=== PATIENT | female | born 1940 | race Hispanic/Latino ===

== ENCOUNTER 2017-01-07 15:44 | Emergency (ER) | payer MEDICARE ==
[2017-01-07 15:45] VITALS: BMI 24.9
[2017-01-07] MEDS ORDERED: Sodium Chloride 0.9% 500 ML IV STA (16:18)
--- NOTE | 2017-01-07 16:22 | ED PDOC ---
HPI: General Adult Time Seen by Provider: 01/07/17 15:55 Chief Complaint (Nursing): Abdominal Pain Chief Complaint (Provider): Abdominal Pain History Per: Patient, Family (Daughter) History/Exam Limitations: no limitations Onset/Duration Of Symptoms: Days (x3 days) Current Symptoms Are (Timing): Still Present Additional Complaint(s): 76 y/o female with a past medical history of hypertension, asthma, and gastritis who presents to the emergency department with a complaint of a frontal headache (not the worse of life), nausea, abdominal pain, generalized weakness, dizziness (room-spinning), diarrhea, congestion, and a cough with green sputum x3 days. As per history from daughter, patient took Delsym earlier today. Denies vomiting, bloody stools, or chest pain. Bodyaches present. PMD: Dr. Hal Bustillo MD Past Medical History Reviewed: Historical Data, Nursing Documentation, Vital Signs Vital Signs: Last Vital Signs Temp Pulse 82 01/07/17 18:00 Resp 14 01/07/17 18:00 BP 132/75 01/07/17 18:00 Pulse Ox 98 01/07/17 18:00 - Medical History PMH: Asthma, Gastritis, HTN Denies: Chronic Kidney Disease - Surgical History Surgical History: Cholecystectomy - Family History Family History: States: Unknown Family Hx - Living Arrangements Living Arrangements: With Family - Social History Current smoker - smoking cessation education provided: No Alcohol: None Drugs: Denies - Home Medications Home Medications: Ambulatory Orders Medication Instructions Recorded Albuterol Sulfate [Proair Hfa] 1 puff IH Q4H PRN #0 inh 03/04/16 Carvedilol [Coreg] 12.5 mg PO DAILY #0 tab 03/04/16 Esomeprazole Magnesium [Nexium] 40 mg PO DAILY #0 capsule. 03/04/16 Magnesium Oxide 400 mg PO BID #60 tablet 03/04/16 Valsartan [Diovan] 160 mg PO DAILY #0 tablet 03/04/16 DiphenhydrAMINE [Benadryl] 25 mg PO Q8H PRN 5 Days 07/10/16 predniSONE [predniSONE Tab] 20 mg PO BID 5 Days 07/10/16 - Allergies Allergies/Adverse Reactions: Allergies Allergy/AdvReac Type Severity Reaction Status Date / Time No Known Allergies Allergy Verified 03/01/16 23:04 Review of Systems ROS Statement: Except As Marked, All Systems Reviewed And Found Negative ENT: Positive for: Nose Congestion Cardiovascular: Negative for: Chest Pain Respiratory: Positive for: Cough, Sputum (green in color) Gastrointestinal: Positive for: Nausea, Abdominal Pain, Diarrhea. Negative for : Vomiting, Hematochezia Neurological: Positive for: Weakness (Generalized), Headache (Frontal; not the worst headache experienced), Dizziness (Room-spinning) Physical Exam - Reviewed Nursing Documentation Reviewed: Yes Vital Signs Reviewed: Yes - Physical Exam Appears: Positive for: Non-toxic, No Acute Distress Head Exam: Positive for: ATRAUMATIC, NORMAL INSPECTION, NORMOCEPHALIC Skin: Positive for: Normal Color, Warm, Dry Eye Exam: Positive for: Normal appearance, EOMI, PERRL ENT: Positive for: Nasal Congestion. Negative for: Pharyngeal Erythema, Tonsillar Exudate Neck: Positive for: Normal, Supple Cardiovascular/Chest: Positive for: Regular Rate, Rhythm. Negative for: Murmur Respiratory: Positive for: Normal Breath Sounds. Negative for: Accessory Muscle Use, Wheezing, Respiratory Distress Gastrointestinal/Abdominal: Positive for: Normal Exam, Soft. Negative for: Tenderness Back: Positive for: Normal Inspection. Negative for: L CVA Tenderness, R CVA Tenderness Extremity: Positive for: Normal ROM. 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 Negative for: Motor/Sensory Deficits, Aphasia, Facial Droop - Laboratory Results Result Diagrams: 01/07/17 16:34 01/07/17 16:34 Interpretation Of Abn Labs: no acute Urine dip results: Positive for: Leukocyte Esterase - ECG ECG: Positive for: Interpreted By Me, Viewed By Ar ECG Rhythm: Positive for: Normal QRS, Normal ST Segment, Sinus Rhythm - Radiology X-Ray: Read By Radiologist X-Ray Interpretation: No Acute Disease - Progress ED Course And Treament: 1850: Stable. Dr. Bentley to fu on ct head. Possible uti. Medical Decision Making Medical Decision Making: Time:15:55 Initial impression: Evaluating for multiple medical complaints Initial plan: --Head w.o contrast CT --Electrocardiogram Stat --COMP Metabolic Panel --Troponin I Stat --Urine Dip --EKG-ED --CBC w. differential --Chest portable (RAD) --Famotidine 20 mg IVP --Antivert 25 mg PO --Sodium Chloride 500 ml IV 250 mls/hr --Ondansetron 4 mg IV --Revaluation Time: 16:47 --Chest X-ray FINDINGS: LUNGS: No active pulmonary disease. PLEURA: No significant pleural effusion identified, no pneumothorax apparent. CARDIOVASCULAR: Normal. OSSEOUS STRUCTURES: No significant abnormalities. VISUALIZED UPPER ABDOMEN: Normal. OTHER FINDINGS: None. IMPRESSION: No active disease. Scribe Attestation: Documented by Romina Wray, acting as a scribe for Osito Esquivel MD. Provider Scribe Attestation: All medical record entries made by the Scribe were at my direction and personally dictated by me. I have reviewed the chart and agree that the record accurately reflects my personal performance of the history, physical exam, medical decision making, and the department course for this patient. I have also personally directed, reviewed, and agree with the discharge instructions and disposition. Disposition - Clinical Impression Clinical Impression: URI (upper respiratory infection), UTI (urinary tract infection), Dizziness - Patient ED Disposition Is Patient to be Admitted: Transfer of Care - Disposition Disposition: Transfer of Care Disposition Time: 18:51 Condition: STABLE Patient Signed Over To: Tan Bentley
--- NOTE | 2017-01-07 16:48 | RAD ---
HISTORY: weakness COMPARISON: No prior. FINDINGS: LUNGS: No active pulmonary disease. PLEURA: No significant pleural effusion identified, no pneumothorax apparent. CARDIOVASCULAR: Normal. OSSEOUS STRUCTURES: No significant abnormalities. VISUALIZED UPPER ABDOMEN: Normal. OTHER FINDINGS: None. IMPRESSION: No active disease.
[2017-01-07 16:56] LABS: BASO % 0.6 % (0.0-2.0); EOS # 0.1 K/uL (0.0-0.7); EOS % 1.8 % (0.0-4.0); HEMATOCRIT 33.1 % (34.0-47.0); LYMPH # 1.3 K/uL (1.0-4.3); LYMPH % 18.1 % (20.0-40.0); MEAN CELL VOLUME 91.3 fl (81.0-99.0); MEAN CORPUSCULAR HEMOGLOBIN 30.5 pg (27.0-31.0); MEAN CORPUSCULAR HGB CONC 33.4 g/dL (33.0-37.0); MEAN PLATELET VOLUME 12.3 fl (7.2-11.7); MONO # 0.8 K/uL (0.0-0.8); MONO % 10.5 % (0.0-10.0); NEUT # 4.9 K/uL (1.8-7.0); NRBC % 0.2 % (0.0-0.0); RED CELL DISTRIBUTION WIDTH 13.9 % (11.5-14.5); WHITE BLOOD COUNT 7.1 K/uL (4.8-10.8)
[2017-01-07 17:00] LABS: ALB/GLOB RATIO 1.3 (1.0-2.1); ALKALINE PHOSPHATASE 49 U/L (38-126); ALT/SGPT 26 U/L (9-52); AST/SGOT 26 U/L (14-36); BILIRUBIN,TOTAL 0.6 mg/dl (0.2-1.3); BLOOD UREA NITROGEN 20 mg/dl (7-17); CALCIUM 8.5 mg/dL (8.4-10.2); CARBON DIOXIDE 25 mmol/L (22-30); CHLORIDE 103 mmol/L (98-107); GFR AFRICAN-AMERICAN > 60; GLUCOSE,RANDOM 103 mg/dL (65-105); POTASSIUM 3.7 MMOL/L (3.6-5.0); SODIUM 138 mmol/l (132-148); TOTAL PROTEIN 7.4 G/DL (6.3-8.2)
[2017-01-07 18:39] VITALS: BP 132/75; PULSE 82; RESP 14; O2SAT 98
[2017-01-07 18:51] VITALS: TEMP 98
[2017-01-07 19:01] LABS: RBC URINE 6 /hpf (0-3); URINE BACTERIA OCC (<OCC); URINE BILIRUBIN NEGATIVE (NEGATIVE); URINE COLOR YELLOW (YELLOW); URINE GLUCOSE (UA) NEG (Normal); URINE KETONE NEGATIVE (NEGATIVE); URINE LEUKOCYTE ESTERASE LARGE Leu/uL (Negative); URINE PROTEIN 30 mg/dL (NEGATIVE); URINE UROBILINOGEN 0.2-1.0 mg/dL (0.2-1.0); WBC URINE 30 /hpf (0-5)
[2017-01-07 19:02] LABS: URINE BLOOD SMALL (NEGATIVE)
--- NOTE | 2017-01-07 19:30 | ED PDOC ---
- Laboratory Results Result Diagrams: 01/07/17 16:34 01/07/17 16:34 - ECG O2 Sat by Pulse Oximetry: 98 (RA) Pulse Ox Interpretation: Normal Medical Decision Making Medical Decision Making: Time: 19:00 --Patient is pending CT, reevaluation, and disposition. Time: 19:56 --Head CT FINDINGS: BRAIN: Physiologic basal ganglia calcification. Diffuse, age-related cortical atrophy and ventriculomegaly. No significant acute abnormality identified. No acute hemorrhage seen within the brain. No acute extra-axial fluid collections visualized. No evidence of significant mass effect within the brain. VENTRICLES: See above. BONES/JOINTS: No acute fractures or other acute bony abnormality noted. SOFT TISSUES: No acute abnormality of the visualized soft tissues is seen. VASCULATURE: Atherosclerotic calcification. SINUSES: Visualized paranasal sinuses appear clear. MASTOID AIR CELLS: Mastoid air cells appear clear. IMPRESSION: - No acute findings seen within the brain. - See above for remaining findings. Time: 20:55 --Rocephin 1gm Upon provider reevaluation patient is feeling better, is medically stable, and requires no further treatment in the ED at this time. Patient will be discharged home with Rx for Cipro 500 mg and Antivert 25 mg. Counseling was provided and all questions were answered regarding diagnosis and need for follow up with referred clinic. There is agreement to discharge plan. Return if symptoms persist or worsen. Clinical Impression: Upper respiratory infection, urinary tract infection, and dizziness Scribe Attestation: Documented by Romina Wray, acting as a scribe for Tan Bentley MD. Provider Scribe Attestation: All medical record entries made by the Scribe were at my direction and personally dictated by me. I have reviewed the chart and agree that the record accurately reflects my personal performance of the history, physical exam, medical decision making, and the department course for this patient. I have also personally directed, reviewed, and agree with the discharge instructions and disposition. Disposition Counseled Patient/Family Regarding: Studies Performed, Diagnosis, Need For Followup, Rx Given - Clinical Impression Clinical Impression: URI (upper respiratory infection), UTI (urinary tract infection), Dizziness - POA Present On Arrival: None - Disposition Referrals: [facility] [Outside] Disposition: Routine/Home Disposition Time: 20:55 Condition: STABLE Prescriptions: Ciprofloxacin [Cipro] 500 mg PO Q12 #14 tab Meclizine [Antivert] 25 mg PO Q6 PRN #12 tab PRN Reason: Dizziness Instructions: Urinary Tract Infection in Women (ED), Vertigo (ED) Print Language: CYPRIOT
--- NOTE | 2017-01-07 19:56 | CT ---
EXAM: CT Head Without Intravenous Contrast CLINICAL HISTORY: 76 years old, female; Pain; Headache; Other: Frontal sanchez's weak dizzy; Patient HX: Cholecystectomy. HTN asthma a-fib TECHNIQUE: Axial computed tomography images of the head/brain without intravenous contrast. This CT exam was performed using one or more of the following dose reduction techniques: automated exposure control, adjustment of the mA and/or kV according to patient size, and/or use of iterative reconstruction technique. Coronal and sagittal reformatted images were created and reviewed. EXAM DATE/TIME: 01/07/2017 4:17 PM COMPARISON: No relevant prior studies available. FINDINGS: BRAIN: Physiologic basal ganglia calcification. Diffuse, age-related cortical atrophy and ventriculomegaly. No significant acute abnormality identified. No acute hemorrhage seen within the brain. No acute extra-axial fluid collections visualized. No evidence of significant mass effect within the brain. VENTRICLES: See above. BONES/JOINTS: No acute fractures or other acute bony abnormality noted. SOFT TISSUES: No acute abnormality of the visualized soft tissues is seen. VASCULATURE: Atherosclerotic calcification. SINUSES: Visualized paranasal sinuses appear clear. MASTOID AIR CELLS: Mastoid air cells appear clear. IMPRESSION: - No acute findings seen within the brain. - See above for remaining findings.
[2017-01-07] MEDS ORDERED: cefTRIAXone (Rocephin) 1 gm Inj ONE (21:01)
--- NOTE | 2017-01-08 14:50 | CARD ---
APPROVED REPORT EKG Measurement Heart [id number] AL [id number] <Conclusion> Sinus bradycardia with premature atrial complexes Otherwise normal ECG
== END 2017-01-07 22:22 | disposition home or self-care (01) ==
LOC: H.ER 15:44
DX: N39.0 Urinary tract infection, site not specified (principal); J06.9 Acute upper respiratory infection, unspecified; R42 Dizziness and giddiness; I10 Essential (primary) hypertension; R11.0 Nausea; R51 Headache
CPT/HCPCS: 70450; 71010; 80053; 81003; 84484; 85025; 87086; 93005; 96365; 96375; 99285; J0696; J2405; J7040

== ENCOUNTER 2017-05-21 02:40 | Emergency (ER) | payer MEDICARE ==
[2017-05-21 02:41] VITALS: BMI 24.9
[2017-05-21 03:05] VITALS: BP 164/80; RESP 16; TEMP 98.1; O2SAT 100
--- NOTE | 2017-05-21 03:24 | ED PDOC ---
HPI: General Adult Time Seen by Provider: 05/21/17 02:50 Chief Complaint (Nursing): Chest Pain Chief Complaint (Provider): Back pain, chest pain History Per: Patient History/Exam Limitations: clinical condition (dementia) Onset/Duration Of Symptoms: Unknown Current Symptoms Are (Timing): Still Present Additional Complaint(s): 76yo female, past medical history of dementia, hypertension, gastritis, presents to the ED with complaints of chest pain, lower back pain radiating to bilateral legs. Of note, patient reports she has a history of arthritis but does not take medications. Patient states she is unsure of exact onset of her pain but reports noticing it today; denies taking any medications for her symptoms. She states the chest pain is mostly mid-sternal and she denies any numbness or tingling in her lower extremities. Patient offers no other medical complaints. Past Medical History Reviewed: Historical Data, Nursing Documentation, Vital Signs Vital Signs: Last Vital Signs Temp 98.1 F 05/21/17 03:01 Pulse 98 H 05/21/17 03:45 Resp 16 05/21/17 03:01 BP 164/80 H 05/21/17 03:01 Pulse Ox 100 05/21/17 03:34 - Medical History PMH: Asthma, Atrial Fibrillation, Dementia, Gastritis, Gall Bladder Disease, HTN Denies: Chronic Kidney Disease - Surgical History Surgical History: Cholecystectomy - Family History Family History: States: No Known Family Hx, Unknown Family Hx - Home Medications Home Medications: Ambulatory Orders Medication Instructions Recorded Albuterol Sulfate [Proair Hfa] 1 puff IH Q4H PRN #0 inh 03/04/16 Carvedilol [Coreg] 12.5 mg PO DAILY #0 tab 03/04/16 Esomeprazole Magnesium [Nexium] 40 mg PO DAILY #0 capsule. 03/04/16 Magnesium Oxide 400 mg PO BID #60 tablet 03/04/16 Valsartan [Diovan] 160 mg PO DAILY #0 tablet 03/04/16 DiphenhydrAMINE [Benadryl] 25 mg PO Q8H PRN 5 Days cap 07/10/16 predniSONE [predniSONE Tab] 20 mg PO BID 5 Days tab 07/10/16 Ciprofloxacin [Cipro] 500 mg PO Q12 #14 tab 01/07/17 Meclizine [Antivert] 25 mg PO Q6 PRN #12 tab 01/07/17 Cyclobenzaprine [Cyclobenzaprine 10 mg PO BID #15 tab 05/21/17 HCl] Ibuprofen [Motrin Tab] 600 mg PO Q6 #30 tab 05/21/17 - Allergies Allergies/Adverse Reactions: Allergies Allergy/AdvReac Type Severity Reaction Status Date / Time adhesive tape Allergy RASH Verified 05/21/17 03:00 Review of Systems ROS Statement: Except As Marked, All Systems Reviewed And Found Negative Cardiovascular: Positive for: Chest Pain (mid-sternal) Musculoskeletal: Positive for: Back Pain (lower back radiating to bilateral lower extrem) Neurological: Negative for: Numbness, Other (tingling) Physical Exam - Reviewed Nursing Documentation Reviewed: Yes Vital Signs Reviewed: Yes - Physical Exam Appears: Positive for: Non-toxic, No Acute Distress Head Exam: Positive for: ATRAUMATIC, NORMAL INSPECTION, NORMOCEPHALIC Neck: Positive for: Supple Cardiovascular/Chest: Positive for: Regular Rate, Rhythm, Other (mid-sternal chest wall tenderness noted; bilaterla pectoral tenderness noted) Respiratory: Positive for: Normal Breath Sounds. Negative for: Respiratory Distress Back: Positive for: Other (paralumbar tenderness ). Negative for: Vertebral Tenderness (bilatera paralumbar musculature tenderness; negative for straight leg raise) - Laboratory Results Result Diagrams: 05/21/17 03:45 05/21/17 03:45 - ECG ECG: Positive for: Interpreted By Me, Viewed By Me ECG Rhythm: Positive for: Sinus Rhythm (with PAC's). Negative for: ST/T Changes Rate: 81 O2 Sat by Pulse Oximetry: 100 (RA) Pulse Ox Interpretation: Normal Medical Decision Making Medical Decision Making: Time: 307 Impression: Muscle spasm and musculoskeletal pain Plan: -- Labs -- Chest x-ray -- Toradol 15 mg IM -- Flexeril 10 mg PO Reassess Time: 333 Chest x-ray as read by provider shows no acute disease 430AM: Pt. reports resolution of symptoms. told to f/u w/ pmd in 1-2 days. return precautions given. Scribe Attestation: Documented by Carolyn Loredo acting as a scribe for Meño Rodrigues MD. Provider Attestation: All medical record entries made by the Scribe were at my direction and personally dictated by me. I have reviewed the chart and agree that the record accurately reflects my personal performance of the history, physical exam, medical decision making, and the department course for this patient. I have also personally directed, reviewed, and agree with the discharge instructions and disposition. Disposition - Clinical Impression Clinical Impression: Musculoskeletal pain - Disposition Referrals: Hal Bustillo MD [Staff Provider] - Disposition: Routine/Home Disposition Time: 04:30 Condition: STABLE Prescriptions: Cyclobenzaprine [Cyclobenzaprine HCl] 10 mg PO BID #15 tab Ibuprofen [Motrin Tab] 600 mg PO Q6 #30 tab Instructions: Musculoskeletal Pain (ED) Forms: [employer] (Romanian) Print Language: YI
[2017-05-21 04:11] LABS: BASO % 0.7 % (0.0-2.0); EOS # 0.2 K/uL (0.0-0.7); EOS % 3.8 % (0.0-4.0); HEMATOCRIT 30.9 % (34.0-47.0); LYMPH # 1.8 K/uL (1.0-4.3); LYMPH % 35.5 % (20.0-40.0); MEAN CORPUSCULAR HEMOGLOBIN 30.3 pg (27.0-31.0); MEAN CORPUSCULAR HGB CONC 33.7 g/dL (33.0-37.0); MEAN PLATELET VOLUME 11.6 fl (7.2-11.7); MONO # 0.6 K/uL (0.0-0.8); MONO % 11.8 % (0.0-10.0); NEUT # 2.5 K/uL (1.8-7.0); NEUT % 48.2 % (50.0-75.0); RED CELL DISTRIBUTION WIDTH 13.6 % (11.5-14.5); WHITE BLOOD COUNT 5.1 K/uL (4.8-10.8)
[2017-05-21 04:23] LABS: PARTIAL THROMBOPLASTIN TIME 31.6 Seconds (25.6-37.1)
[2017-05-21 04:45] LABS: BLOOD UREA NITROGEN 25 mg/dl (7-17); CALCIUM 8.7 mg/dL (8.4-10.2); CARBON DIOXIDE 24 mmol/L (22-30); CHLORIDE 108 mmol/L (98-107); GFR AFRICAN-AMERICAN > 60; GLUCOSE,RANDOM 97 mg/dL (65-105); POTASSIUM 3.6 MMOL/L (3.6-5.0); SODIUM 141 mmol/l (132-148)
--- NOTE | 2017-05-21 07:30 | RAD ---
PROCEDURE: CHEST RADIOGRAPH, 1 VIEW HISTORY: cp, back pain COMPARISON: None available. FINDINGS: LUNGS: Clear. PLEURA: No pneumothorax or pleural fluid seen. CARDIOVASCULAR: Cardiomegaly. Atherosclerotic aorta. OSSEOUS STRUCTURES: No significant abnormalities. VISUALIZED UPPER ABDOMEN: Normal. OTHER FINDINGS: None. IMPRESSION: No active disease.
--- NOTE | 2017-05-21 09:05 | CARD ---
APPROVED REPORT EKG Measurement Heart [id number] <Conclusion> Sinus rhythm with premature atrial complexes Nonspecific ST abnormality Abnormal ECG
[2017-05-22 01:09] VITALS: PULSE 81
== END 2017-05-21 06:28 | disposition home or self-care (01) ==
LOC: H.ER 02:40
DX: R07.89 Other chest pain (principal); M54.9 Dorsalgia, unspecified; F03.90 Unspecified dementia, unspecified severity, without behavioral disturbance, psychotic disturbance, mood disturbance, and anxiety; I10 Essential (primary) hypertension; I48.91 Unspecified atrial fibrillation; I49.1 Atrial premature depolarization; J45.909 Unspecified asthma, uncomplicated
CPT/HCPCS: 71010; 80048; 84484; 85025; 85610; 85730; 93005; 96374; 99283; J1885

== ENCOUNTER 2017-08-26 22:46 | Emergency (ER) | payer MEDICARE ==
[2017-08-26 22:47] VITALS: BMI 24.9
[2017-08-26] MEDS ORDERED: Albuterol-Ipratrop 3 mg / 0.5 (3 ml) UD INH STA ×2 (23:38→23:44)
[2017-08-27] MEDS ORDERED: Albuterol-Ipratrop 3 mg / 0.5 (3 ml) UD ONE (00:08)
[2017-08-27 00:22] LABS: BASO % 0.9 % (0.0-2.0); EOS # 0.3 K/uL (0.0-0.7); HEMOGLOBIN 10.9 g/dL (12.0-16.0); LYMPH # 2.2 K/uL (1.0-4.3); MEAN CELL VOLUME 91.8 fl (81.0-99.0); MEAN CORPUSCULAR HEMOGLOBIN 29.9 pg (27.0-31.0); MEAN CORPUSCULAR HGB CONC 32.6 g/dL (33.0-37.0); MEAN PLATELET VOLUME 12.2 fl (7.2-11.7); MONO # 0.6 K/uL (0.0-0.8); MONO % 10.5 % (0.0-10.0); NEUT # 2.4 K/uL (1.8-7.0); NEUT % 43.6 % (50.0-75.0); RBC 3.64 Mil/uL (3.80-5.20); RED CELL DISTRIBUTION WIDTH 13.6 % (11.5-14.5); WHITE BLOOD COUNT 5.5 K/uL (4.8-10.8)
--- NOTE | 2017-08-27 00:27 | ED PDOC ---
HPI: Chest Pain Time Seen by Provider: 08/26/17 23:14 Chief Complaint (Nursing): Chest Pain Chief Complaint (Provider): Chest Pain and Shortness of Breath History Per: Patient History/Exam Limitations: no limitations Onset/Duration Of Symptoms: Days (x3) Additional Complaint(s): Amy Sheriff, a 76 year old female presents to the Emergency Department complaining of chest pain and shortness of breath onset three days ago. Reports she has difficulty breathing and does not use an inhaler. Patient also has a history of hypertension, atrial fibrillation, and gastritis. Denies nausea, vomiting, or diarrhea. PMD: Hal Bustillo Past Medical History Reviewed: Historical Data, Nursing Documentation, Vital Signs Vital Signs: Last Vital Signs Temp 97.8 F 08/26/17 23:09 Pulse 54 L 08/27/17 00:39 Resp 16 08/27/17 00:39 BP 183/91 H 08/27/17 00:39 Pulse Ox 99 08/27/17 00:47 - Medical History PMH: Asthma, Atrial Fibrillation, Dementia, Gastritis, Gall Bladder Disease, HTN Denies: Chronic Kidney Disease - Surgical History Surgical History: Cholecystectomy - Family History Family History: States: Unknown Family Hx - Home Medications Home Medications: Ambulatory Orders Medication Instructions Recorded Albuterol Sulfate [Proair Hfa] 1 puff IH Q4H PRN #0 inh 03/04/16 Carvedilol [Coreg] 12.5 mg PO DAILY #0 tab 03/04/16 Esomeprazole Magnesium [Nexium] 40 mg PO DAILY #0 capsule. 03/04/16 Magnesium Oxide 400 mg PO BID #60 tablet 03/04/16 Valsartan [Diovan] 160 mg PO DAILY #0 tablet 03/04/16 DiphenhydrAMINE [Benadryl] 25 mg PO Q8H PRN 5 Days cap 07/10/16 predniSONE [predniSONE Tab] 20 mg PO BID 5 Days tab 07/10/16 Ciprofloxacin [Cipro] 500 mg PO Q12 #14 tab 01/07/17 Meclizine [Antivert] 25 mg PO Q6 PRN #12 tab 01/07/17 Cyclobenzaprine [Cyclobenzaprine 10 mg PO BID #15 tab 05/21/17 HCl] Ibuprofen [Motrin Tab] 600 mg PO Q6 #30 tab 05/21/17 Albuterol HFA [Ventolin HFA 90 1 - 2 puff IH Q6 PRN #1 inhaler 08/27/17 mcg/actuation (8 g)] predniSONE [predniSONE Tab] 60 mg PO QAM #12 tab 08/27/17 - Allergies Allergies/Adverse Reactions: Allergies Allergy/AdvReac Type Severity Reaction Status Date / Time adhesive tape Allergy RASH Verified 05/21/17 03:00 Review of Systems ROS Statement: Except As Marked, All Systems Reviewed And Found Negative Constitutional: Negative for: Fever, Chills Cardiovascular: Positive for: Chest Pain (x3) Respiratory: Positive for: Shortness of Breath (x3) Gastrointestinal: Negative for: Nausea, Vomiting, Abdominal Pain Physical Exam - Reviewed Nursing Documentation Reviewed: Yes Vital Signs Reviewed: Yes - Physical Exam Appears: Positive for: Well, Non-toxic, No Acute Distress Head Exam: Positive for: ATRAUMATIC, NORMAL INSPECTION, NORMOCEPHALIC Skin: Positive for: Normal Color, Warm, Dry Eye Exam: Positive for: Normal appearance, EOMI, PERRL ENT: Positive for: Normal ENT Inspection Neck: Positive for: Normal, Painless ROM Cardiovascular/Chest: Positive for: Regular Rate, Rhythm. Negative for: Murmur Respiratory: Positive for: Respiratory Distress (mild). Negative for: Wheezing Gastrointestinal/Abdominal: Positive for: Normal Exam, Soft. Negative for: Tenderness Back: Positive for: Normal Inspection Extremity: Positive for: Normal ROM. Negative for: Deformity Neurologic/Psych: Positive for: Alert, Oriented (x3) - Laboratory Results Result Diagrams: 08/26/17 23:45 08/26/17 23:45 - ECG O2 Sat by Pulse Oximetry: 99 (RA) Pulse Ox Interpretation: Normal Medical Decision Making Medical Decision Making: Time: 23:30 Initial Impression: --76 y/o female with shortness of breath, asthma, and hypertension. Initial Plan: --EKG --B-Type Natriuretic Peptide --CMP --Troponin I --CBC --Chest X-ray --Albuterol/Ipratropium 3ml INH --Peak flow pre/post treatment --Reevaluation Clinical Impression: Asthma exacerbation Upon provider evaluation patient is medically stable, with chest x-ray presenting cardiomegaly and no acute or active disease. Patient will be discharged with Rx for Albuterol HFA and predniSONE 60mg. Counseling was provided and all questions were answered regarding diagnosis and need for follow up with PMD. Scribe Attestation: Documented by Thom Walton, acting as a scribe for Tan Bentley MD Provider Scribe Attestation: All medical record entries made by the Scribe were at my direction and personally dictated by me. I have reviewed the chart and agree that the record accurately reflects my personal performance of the history, physical exam, medical decision making, and the department course for this patient. I have also personally directed, reviewed, and agree with the discharge instructions and disposition. Disposition - Clinical Impression Clinical Impression: Asthma exacerbation, mild - Disposition Disposition: Routine/Home Disposition Time: 01:30 Condition: STABLE Prescriptions: Albuterol HFA [Ventolin HFA 90 mcg/actuation (8 g)] 1 - 2 puff IH Q6 PRN #1 inhaler PRN Reason: Shortness Of Breath predniSONE [predniSONE Tab] 60 mg PO QAM #12 tab Instructions: Asthma (ED) Forms: [employer] (Occitan) Print Language: BOTSWANAN
[2017-08-27 00:38] LABS: ALB/GLOB RATIO 1.1 (1.0-2.1); ALBUMIN 3.8 g/dL (3.5-5.0); ALT/SGPT 19 U/L (9-52); AST/SGOT 21 U/L (14-36); BLOOD UREA NITROGEN 18 mg/dl (7-17); GFR AFRICAN-AMERICAN > 60; GFR NON-AFRICAN AMERICAN > 60
[2017-08-27 00:47] VITALS: O2SAT 99
[2017-08-27 00:51] LABS: B-TYPE NATRIURETIC PEPTIDE 309 pg/ml (0-900)
[2017-08-27] MEDS ORDERED: Ipratropium 0.02% Inhal Soln (0.5 mg/2.5 ml) UD IH ONE (00:57)
[2017-08-27] MEDS ORDERED: Albuterol 0.083% Inhal Sol (2.5 mg/3 mL) UD ONE (00:57)
[2017-08-27 04:23] VITALS: BP 175/86; PULSE 86; RESP 18; TEMP 98.4
--- NOTE | 2017-08-27 09:54 | RAD ---
HISTORY: chest pain COMPARISON: Comparison chest 05/21/2017 FINDINGS: LUNGS: No active pulmonary disease. PLEURA: No significant pleural effusion identified, no pneumothorax apparent. CARDIOVASCULAR: Mild cardiomegaly. OSSEOUS STRUCTURES: No significant abnormalities. VISUALIZED UPPER ABDOMEN: Normal. OTHER FINDINGS: None. IMPRESSION: No active disease.
--- NOTE | 2017-08-28 12:54 | CARD ---
APPROVED REPORT EKG Measurement Heart [id number] IN [id number] <Conclusion> Sinus bradycardia Minimal voltage criteria for LVH, may be normal variant Borderline ECG
== END 2017-08-27 02:30 | disposition home or self-care (01) ==
LOC: H.ER 22:46
DX: J45.901 Unspecified asthma with (acute) exacerbation (principal); F03.90 Unspecified dementia, unspecified severity, without behavioral disturbance, psychotic disturbance, mood disturbance, and anxiety; I10 Essential (primary) hypertension; I48.91 Unspecified atrial fibrillation

== ENCOUNTER 2017-09-04 21:42 | Inpatient (IN) | payer MEDICARE ==
[2017-09-04 21:46] VITALS: BMI 25.7
--- NOTE | 2017-09-04 22:46 | ED PDOC ---
HPI: Altered Mental Status Time Seen by Provider: 09/04/17 21:53 Chief Complaint (Nursing): Weakness/Neurological Deficit Chief Complaint (Provider): Weakness/Neurological Deficit History Per: Family (Daughter) Onset/Duration Of Symptoms: Days (x4 days) Additional Complaint(s): 76 y/o male presents to the ED with daughter for dizziness x 4 days. Patient is waking up with dizziness and light headedness. She was seen by doctor at 10am today and was advised to come to the ED for stroke workup. History obtained from daughter because patient has memory problems/dementia. Denies any further medical complaints. PMD: Hal Bustillo MD Past Medical History Reviewed: Historical Data, Nursing Documentation, Vital Signs Vital Signs: Last Vital Signs Temp 97.5 F L 09/04/17 21:47 Pulse 70 09/04/17 21:47 Resp 16 09/04/17 21:47 BP 210/92 H 09/04/17 21:47 Pulse Ox 100 09/04/17 21:47 - Medical History PMH: Asthma, Atrial Fibrillation, Dementia, Gastritis, Gall Bladder Disease, HTN Denies: Chronic Kidney Disease - Surgical History Surgical History: Cholecystectomy - Family History Family History: States: Unknown Family Hx - Social History Current smoker - smoking cessation education provided: No Alcohol: None Drugs: Denies - Home Medications Home Medications: Ambulatory Orders Medication Instructions Recorded Albuterol Sulfate [Proair Hfa] 1 puff IH Q4H PRN #0 inh 03/04/16 Carvedilol [Coreg] 12.5 mg PO DAILY #0 tab 03/04/16 Esomeprazole Magnesium [Nexium] 40 mg PO DAILY #0 capsule. 03/04/16 Magnesium Oxide 400 mg PO BID #60 tablet 03/04/16 Valsartan [Diovan] 160 mg PO DAILY #0 tablet 03/04/16 DiphenhydrAMINE [Benadryl] 25 mg PO Q8H PRN 5 Days cap 07/10/16 predniSONE [predniSONE Tab] 20 mg PO BID 5 Days tab 07/10/16 Ciprofloxacin [Cipro] 500 mg PO Q12 #14 tab 01/07/17 Meclizine [Antivert] 25 mg PO Q6 PRN #12 tab 01/07/17 Cyclobenzaprine [Cyclobenzaprine 10 mg PO BID #15 tab 05/21/17 HCl] Ibuprofen [Motrin Tab] 600 mg PO Q6 #30 tab 05/21/17 Albuterol HFA [Ventolin HFA 90 1 - 2 puff IH Q6 PRN #1 inhaler 08/27/17 mcg/actuation (8 g)] predniSONE [predniSONE Tab] 60 mg PO QAM #12 tab 08/27/17 - Allergies Allergies/Adverse Reactions: Allergies Allergy/AdvReac Type Severity Reaction Status Date / Time adhesive tape Allergy RASH Verified 09/04/17 21:46 Review of Systems ROS Statement: Except As Marked, All Systems Reviewed And Found Negative (As per HPI, otherwise negative) Neurological: Positive for: Dizziness Physical Exam - Reviewed Nursing Documentation Reviewed: Yes Vital Signs Reviewed: Yes - Physical Exam Appears: Positive for: Non-toxic, No Acute Distress Head Exam: Positive for: ATRAUMATIC, NORMOCEPHALIC Skin: Positive for: Warm, Dry Eye Exam: Positive for: EOMI, PERRL ENT: Negative for: Pharyngeal Erythema, Tonsillar Exudate Neck: Positive for: Painless ROM, Supple Cardiovascular/Chest: Positive for: Regular Rate, Rhythm. Negative for: Murmur Respiratory: Positive for: Normal Breath Sounds. Negative for: Respiratory Distress Gastrointestinal/Abdominal: Positive for: Soft. Negative for: Tenderness Back: Positive for: Normal Inspection. Negative for: Decreased ROM Extremity: Positive for: Normal ROM. 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 Negative for : Motor/Sensory Deficits, Aphasia - Laboratory Results Result Diagrams: 09/05/17 04:30 09/05/17 04:30 - ECG O2 Sat by Pulse Oximetry: 100 (RA) Pulse Ox Interpretation: Normal Medical Decision Making Medical Decision Making: Time: 21:57 Initial Impression: Intermittent dizziness, hypertension Differential: vertigo, TIA, CVA, brain mass, electrolyte abnormality, dehydration Plan: Type and screen CT head w/o contrast EKG CMP Hemoglobin A1C Lipid panel Magnesium Phosphorous Troponin I Urine dipstick CBC w/ differential Partial thromboplastin time Prothrombin time Chest x-ray ekg monitor IV insertion (saline lock) Obtain labs Glucose, blood, POC Nursing swallow screen BP elevated. Ordered labetalol, but bp normalized prior to administration. EXAM: CT Head Without Intravenous Contrast CLINICAL HISTORY: 76 years old, female; Signs and symptoms; Dizziness; Additional info: Dizziness. Sent phy. Doc. TECHNIQUE: Axial computed tomography images of the head/brain without intravenous contrast. All CT scans at this facility use one or more dose reduction techniques, viz.: automated exposure control; ma/kV adjustment per patient size (including targeted exams where dose is matched to indication; i.e. head); or iterative reconstruction technique. Coronal and sagittal reformatted images were created and reviewed. COMPARISON: CT - HEAD W/O CONTRAST 2017-01-07 18:48 FINDINGS: Brain: Mild atrophy. No intracranial hemorrhage. No mass. No definite edema. Ventricles: No hydrocephalus. Bones/joints: No acute fracture. Degenerative changes of RIGHT temporomandibular joint. Soft tissues: Unremarkable. Vasculature: Atherosclerotic disease of intracranial arteries. Sinuses: No acute sinusitis. Mastoid air cells: No mastoid effusion. Orbits: Unremarkable as visualized. IMPRESSION: 1. No definite acute intracranial abnormality. 2. Incidental/non-acute findings are described above. Thank you for allowing us to participate in the care of your patient. Dictated and Authenticated by: Arturo Egan MD 09/04/2017 11:33 PM Eastern Time ([place] & [place]) [id number] Critically low magnesium Pt needs hospitalization for episodes of labile bp and associated with possible hypertensive encephalopathy, and hypomagnesemia Discussed case with Dr. Oneil (family practice resident) who will admit for Dr. Bustillo -OBS TELE Scribe Attestation: Documented by Candy Denis acting as a scribe for Jessica Sandoval MD. Scribe Attestation: All medical record entries made by the Scribe were at my direction and personally dictated by me. I have reviewed the chart and agree that the record accurately reflects my personal performance of the history, physical exam, medical decision making, and the department course for this patient. I have also personally directed, reviewed, and agree with the discharge instructions and disposition. Disposition - Clinical Impression Clinical Impression: Magnesium deficiency, Hypertensive encephalopathy Counseled Patient/Family Regarding: Studies Performed, Diagnosis - Disposition Disposition Time: 23:30 Condition: GUARDED - Pt Status Changed To: Hospital Disposition Of: Observation - POA Present On Arrival: None
[2017-09-04 22:53] LABS: BASO % 0.4 % (0.0-2.0); EOS # 0.2 K/uL (0.0-0.7); EOS % 3.1 % (0.0-4.0); HEMOGLOBIN 12.3 g/dL (12.0-16.0); LYMPH % 25.8 % (20.0-40.0); MEAN CELL VOLUME 90.7 fl (81.0-99.0); MEAN CORPUSCULAR HEMOGLOBIN 30.6 pg (27.0-31.0); MEAN CORPUSCULAR HGB CONC 33.7 g/dL (33.0-37.0); MEAN PLATELET VOLUME 11.9 fl (7.2-11.7); MONO # 0.8 K/uL (0.0-0.8); MONO % 10.3 % (0.0-10.0); NEUT # 4.7 K/uL (1.8-7.0); NEUT % 60.4 % (50.0-75.0); NRBC % 0.1 % (0.0-0.0); RBC 4.02 Mil/uL (3.80-5.20); RED CELL DISTRIBUTION WIDTH 13.4 % (11.5-14.5); WHITE BLOOD COUNT 7.7 K/uL (4.8-10.8)
[2017-09-04 23:00] LABS: INR 1.1 (0.9-1.2); PARTIAL THROMBOPLASTIN TIME 26.8 Seconds (25.6-37.1); PROTHROMBIN TIME 11.7 Seconds (9.8-13.1)
[2017-09-04 23:12] LABS: LDL CHOLESTEROL 69 mg/dL (0-129)
[2017-09-04 23:19] LABS: ALB/GLOB RATIO 1.2 (1.0-2.1); ALT/SGPT 13 U/L (9-52); AST/SGOT 36 U/L (14-36); BLOOD UREA NITROGEN 15 mg/dl (7-17); GFR AFRICAN-AMERICAN > 60; GFR NON-AFRICAN AMERICAN > 60; HDL CHOLESTEROL 55 MG/DL (30-70); MAGNESIUM 0.9 MG/DL (1.6-2.3)
[2017-09-04] MEDS ORDERED: Magnesium Sulfate 2 gm/50 ml 2 GM/50 ML BAG IVPB ONE (23:20)
--- NOTE | 2017-09-04 23:33 | CT ---
EXAM: CT Head Without Intravenous Contrast CLINICAL HISTORY: 76 years old, female; Signs and symptoms; Dizziness; Additional info: Dizziness. Sent phy. Doc. TECHNIQUE: Axial computed tomography images of the head/brain without intravenous contrast. All CT scans at this facility use one or more dose reduction techniques, viz.: automated exposure control; ma/kV adjustment per patient size (including targeted exams where dose is matched to indication; i.e. head); or iterative reconstruction technique. Coronal and sagittal reformatted images were created and reviewed. COMPARISON: CT - HEAD W/O CONTRAST 2017-01-07 18:48 FINDINGS: Brain: Mild atrophy. No intracranial hemorrhage. No mass. No definite edema. Ventricles: No hydrocephalus. Bones/joints: No acute fracture. Degenerative changes of RIGHT temporomandibular joint. Soft tissues: Unremarkable. Vasculature: Atherosclerotic disease of intracranial arteries. Sinuses: No acute sinusitis. Mastoid air cells: No mastoid effusion. Orbits: Unremarkable as visualized. IMPRESSION: 1. No definite acute intracranial abnormality. 2. Incidental/non-acute findings are described above.
[2017-09-04] MEDS ORDERED: Labetalol 5 mg/ml Inj 20ML IVP STA (23:37)
[2017-09-04] MEDS ORDERED: Magnesium Sulfate 2 gm/50 ml 2 GM/50 ML BAG ONE (23:59)
--- NOTE | 2017-09-05 01:02 | CP.PCM.HP ---
Addendum entered and electronically signed by Jatinder Oneil MD 09/05/17 07:20: Original Note: <Jatinder Oneil - Last Filed: 09/05/17 05:45> History of Present Illness - History of Present Illness History of Present Illness: 75 yo ,f, PMhx/o HTN, A fib, Dementia is brought to Ed by her daughter who states that patient went to see her doctor today in the morning and her BP was uncontrolled and patient was given a script and advised to go to Ed to r/o stroke. Patient has dementia and her daughter states that she has had dizziness for the last 4 days. Patient reports that dizziness is occasional, not related with positional chages and is sometimes associated with room spinning sensation and lightheadedness. Patient's daughter reports that patient has her medications in a pillbox and sometimes she forgets to take her medications. Patient denies headache, recent fall, head trauma, weakness, numbness, difficulty walking, blurry vision. PMD: Dr Bustillo PMH: HTN, Afib, Gastritis PSH: Cholecystectomy Allergies: NKDA Meds: Coreg 12.5mg PO daily Valsartan 160mg PO daily Nexium 40mg PO daily Albuterol inhaler prn Social: Denies smoking, etoh, drugs Ed Course VS: 210/92 HR: 70 Labs: CBC, CMP normal Imaging: CT Head: No definite acute intracranial abnormality.Brain: Mild atrophy Present on Admission - Present on Admission Any Indicators Present on Admission: No History of DVT/PE: No History of Uncontrolled Diabetes: No Urinary Catheter: No Review of Systems - Cardiovascular Cardiovascular: As Per HPI - Respiratory Respiratory: As Per HPI Past Patient History - Past Medical History & Family History Past Medical History?: Yes - Past Social History Alcohol: None Drugs: Denies - CARDIAC Hx Atrial Fibrillation: Yes Hx Hypertension: Yes - PULMONARY Hx Asthma: Yes - NEUROLOGICAL Hx Dementia: Yes - HEENT Hx HEENT Problems: No - RENAL Hx Chronic Kidney Disease: No - ENDOCRINE/METABOLIC Hx Endocrine Disorders: No - HEMATOLOGICAL/ONCOLOGICAL Hx Blood Disorders: No - INTEGUMENTARY Hx Dermatological Problems: No - MUSCULOSKELETAL/RHEUMATOLOGICAL Hx Musculoskeletal Disorders: Yes Hx Falls: Yes - GASTROINTESTINAL Hx Gall Bladder Disease: Yes Hx Gastritis: Yes - GENITOURINARY/GYNECOLOGICAL Hx Genitourinary Disorders: No - PSYCHIATRIC Hx Psychophysiologic Disorder: No Hx Substance Use: No - SURGICAL HISTORY Hx Cholecystectomy: Yes - ANESTHESIA Hx Anesthesia: Yes Hx Anesthesia Reactions: No Hx Malignant Hyperthermia: No Meds Allergies/Adverse Reactions: Allergies Allergy/AdvReac Type Severity Reaction Status Date / Time adhesive tape Allergy RASH Verified 09/04/17 21:46 Physical Exam - Constitutional Appears: Non-toxic, No Acute Distress - Head Exam Head Exam: ATRAUMATIC, NORMOCEPHALIC - Eye Exam Eye Exam: EOMI, Normal appearance. absent: Nystagmus - ENT Exam ENT Exam: Mucous Membranes Moist - Neck Exam Neck exam: Positive for: Normal Inspection - Respiratory Exam Respiratory Exam: Clear to Auscultation Bilateral. absent: Rales, Rhonchi, Wheezes - Cardiovascular Exam Cardiovascular Exam: REGULAR RHYTHM, +S1, +S2 - GI/Abdominal Exam GI & Abdominal Exam: Normal Bowel Sounds, Soft. absent: Guarding, Rebound - Extremities Exam Extremities exam: Positive for: normal inspection. Negative for: pedal edema - Neurological Exam Neurological exam: Alert, Oriented x3 - Psychiatric Exam Psychiatric exam: Normal Affect, Normal Mood - Skin Skin Exam: Intact Results - Vital Signs Recent Vital Signs: Last Vital Signs Temp 98 F 09/05/17 00:06 Pulse 79 09/05/17 00:06 Resp 18 09/05/17 00:06 BP 191/79 H 09/05/17 00:06 Pulse Ox 99 09/05/17 00:06 - Labs Result Diagrams: 09/05/17 04:30 09/05/17 04:30 Labs: Laboratory Results - last 24 hr 09/04/17 09/04/17 09/04/17 22:46 22:46 22:46 WBC 7.7 RBC 4.02 Hgb 12.3 Hct 36.5 MCV 90.7 MCH 30.6 MCHC 33.7 RDW 13.4 Plt Count 172 MPV 11.9 H Neut % (Auto) 60.4 Lymph % (Auto) 25.8 Wirt % (Auto) 10.3 H Eos % (Auto) 3.1 Baso % (Auto) 0.4 Neut # (Auto) 4.7 Lymph # (Auto) 2.0 Wirt # (Auto) 0.8 Eos # (Auto) 0.2 Baso # (Auto) 0.0 PT 11.7 INR 1.1 APTT 26.8 Sodium 138 Potassium 4.0 Chloride 100 Carbon Dioxide 30 Anion Gap 12 BUN 15 Creatinine 0.7 Est GFR ( Amer) > 60 Est GFR (Non-Af Amer) > 60 Random Glucose 119 H Calcium 9.0 Phosphorus 3.0 Magnesium 0.9 L* D Total Bilirubin 0.9 AST 36 D ALT 13 Alkaline Phosphatase 65 Troponin I 0.0180 Total Protein 7.4 Albumin 4.0 Globulin 3.4 Albumin/Globulin Ratio 1.2 Triglycerides 125 D Cholesterol 157 LDL Cholesterol Direct 69 HDL Cholesterol 55 Assessment & Plan - Assessment and Plan (Free Text) Plan: 75 yo ,f, PMhx/o HTN, A fib, Dementia admitted for Obs for Hypertensive encephalopathy and Hypomagnesemia Assessment/Plan 1) Hypertensive Urgency -may be secondary to pt with dementia who no compliance with meds. -BP: 210/92. PT asymptomatic on evaluation. no symptoms of hypertensive encephalopathy -Labetalol 20 mg IV not given in Ed. -c/w home medications 2) Dizziness -secondary to uncontrolled medication -Orthostatic VS -CT Head w/o contrast no intracraneal hemorrhage. - no motor focalization 3) Hx/o A Fib -On sinus rhythm now 02/2016: Afib with RVR and chest pain - Pt had elevated troponins - ECHO showed EF of 65% - 24 hour Holter with NSR and 2 runs of Afib but no prolonged arrythmias or pauses - Cardio consult - troponins likely 2/2 Afib with RVR; Afib likely 2/2 hypomagnesemia - pt was discharged home on magnesium and was to f/u with cardio for outpt stress test 07/2015: Chest pain with elevated troponins - Cardiac cath done - showed clean arteries 4) Dementia -Ct head showed brain atrophy -Reports taking Namzaric 5) Hx/o HYpomagnesemia -MGsulfate given in ED -f/u mg 6) DVT Prophylaxis -Lovenox 40 mg sc daily <Hal Bustillo - Last Filed: 09/07/17 06:56> Results - Vital Signs Recent Vital Signs: Last Vital Signs Temp 97.5 F L 09/07/17 04:52 Pulse 52 L 09/07/17 04:52 Resp 18 09/07/17 04:52 BP 131/81 09/07/17 04:52 Pulse Ox 97 09/07/17 04:52 - Labs Result Diagrams: 09/07/17 05:00 02/07/18 09:35 Labs: Laboratory Results - last 24 hr 09/06/17 09/06/17 09/06/17 05:30 05:30 05:30 WBC RBC Hgb Hct MCV MCH MCHC RDW Plt Count ESR 19 Sodium Potassium Chloride Carbon Dioxide Anion Gap BUN Creatinine Est GFR ( Amer) Est GFR (Non-Af Amer) Random Glucose Calcium C-React Prot High Sens 2.80 Vitamin B12 274 Folate 9.1 TSH 3rd Generation 3.57 RPR 09/06/17 09/06/17 09/06/17 05:30 09:34 09:35 WBC 5.1 RBC 3.73 L Hgb 11.5 L Hct 34.1 MCV 91.4 MCH 30.8 MCHC 33.7 RDW 13.8 Plt Count 148 ESR Sodium 137 Potassium 3.6 Chloride 101 Carbon Dioxide 29 Anion Gap 11 BUN 15 Creatinine 0.7 Est GFR ( Amer) > 60 Est GFR (Non-Af Amer) > 60 Random Glucose 89 Calcium 9.0 C-React Prot High Sens Vitamin B12 Folate TSH 3rd Generation RPR Nonreactive 09/07/17 05:00 WBC 5.0 RBC 3.69 L Hgb 11.1 L Hct 34.2 MCV 92.5 MCH 30.2 MCHC 32.6 L RDW 13.8 Plt Count 145 ESR Sodium Potassium Chloride Carbon Dioxide Anion Gap BUN Creatinine Est GFR ( Amer) Est GFR (Non-Af Amer) Random Glucose Calcium C-React Prot High Sens Vitamin B12 Folate TSH 3rd Generation RPR Attending/Attestation - Attestation I have personally seen and examined this patient.: Yes I have fully participated in the care of the patient.: Yes I have reviewed all pertinent clinical information: Yes
[2017-09-05 02:08] LABS: SQUAMOUS EPITHIAL 5 /hpf (0-5); URINE BACTERIA OCC (<OCC); URINE BILIRUBIN NEGATIVE (NEGATIVE); URINE CLARITY SLIGHTY-CLOUDY (Clear); URINE COLOR YELLOW (YELLOW); URINE GLUCOSE (UA) NEG (Normal); URINE LEUKOCYTE ESTERASE LARGE Leu/uL (Negative); URINE NITRATE NEGATIVE (NEGATIVE); URINE PROTEIN NEGATIVE (NEGATIVE); URINE UROBILINOGEN 0.2-1.0 mg/dL (0.2-1.0)
[2017-09-05 02:11] LABS: URINE BLOOD SMALL (NEGATIVE)
[2017-09-05 05:22] LABS: ALB/GLOB RATIO 1.2 (1.0-2.1); ALBUMIN 3.6 g/dL (3.5-5.0); ALT/SGPT 24 U/L (9-52); AST/SGOT 17 U/L (14-36); BLOOD UREA NITROGEN 13 mg/dl (7-17); GFR AFRICAN-AMERICAN > 60; GFR NON-AFRICAN AMERICAN > 60; MAGNESIUM 1.6 MG/DL (1.6-2.3)
[2017-09-05 05:23] LABS: HEMOGLOBIN 11.7 g/dL (12.0-16.0); MEAN CELL VOLUME 91.3 fl (81.0-99.0); MEAN CORPUSCULAR HEMOGLOBIN 30.1 pg (27.0-31.0); MEAN CORPUSCULAR HGB CONC 32.9 g/dL (33.0-37.0); MEAN PLATELET VOLUME 11.9 fl (7.2-11.7); RBC 3.87 Mil/uL (3.80-5.20); RED CELL DISTRIBUTION WIDTH 13.8 % (11.5-14.5); WHITE BLOOD COUNT 7.7 K/uL (4.8-10.8)
--- NOTE | 2017-09-05 08:54 | CP.PCM.PN ---
<Roderick Parks - Last Filed: 09/05/17 14:49> Subjective - Date & Time of Evaluation Date of Evaluation: 09/05/17 Time of Evaluation: 08:00 - Subjective Subjective: Patient seen and examined at bedside this morning while in ED awaiting for room in Tele. Patient laying comfortably in bed, NAD. Patient complains of mild, non-radiating, midsternal chest pain. Patient denies headaches, vision changes , dizziness, SOB, abdominal pain, nausea, vomiting, diarrhea, dysuria, or fever. Objective - Vital Signs/Intake and Output Vital Signs (last 24 hours): Temp Pulse Resp BP Pulse Ox 98.4 F 67 16 141/81 98 09/05/17 06:19 09/05/17 06:19 09/05/17 06:19 09/05/17 06:19 09/05/17 06:19 - Medications Medications: Current Medications Acetaminophen (Tylenol 325mg Tab) 650 mg PO Q6 PRN PRN Reason: Pain, moderate (4-7) Carvedilol (Coreg) 12.5 mg PO DAILY [facility] Enoxaparin Sodium (Lovenox) 40 mg SC DAILY [facility] PRN Reason: Protocol Valsartan (Diovan) 160 mg PO DAILY [facility] - Labs Labs: 09/05/17 04:30 09/05/17 04:30 PT 11.7 Seconds (9.8-13.1) 09/04/17 22:46 INR 1.1 (0.9-1.2) 09/04/17 22:46 APTT 26.8 Seconds (25.6-37.1) 09/04/17 22:46 - Constitutional Appears: No Acute Distress - Head Exam Head Exam: ATRAUMATIC, NORMAL INSPECTION, NORMOCEPHALIC - Eye Exam Eye Exam: EOMI, Normal appearance, PERRL - ENT Exam ENT Exam: Mucous Membranes Moist - Neck Exam Neck Exam: Full ROM. absent: Tenderness - Respiratory Exam Respiratory Exam: Clear to Ausculation Bilateral. absent: Decreased Breath Sounds, Rales, Rhonchi, Wheezes, Respiratory Distress - Cardiovascular Exam Cardiovascular Exam: REGULAR RHYTHM. absent: Tachycardia - GI/Abdominal Exam GI & Abdominal Exam: Soft, Normal Bowel Sounds. absent: Distended, Tenderness - Extremities Exam Extremities Exam: Normal Inspection. absent: Calf Tenderness, Pedal Edema, Tenderness - Neurological Exam Neurological Exam: Alert, Awake, CN II-XII Intact - Skin Skin Exam: Dry, Intact, Normal Color, Warm Assessment and Plan - Assessment and Plan (Free Text) Assessment: 75 y/o woman w/ pmh of HTN, A fib, Dementia admitted for Hypertensive encephalopathy and Hypomagnesemia Plan: 1) Hypertensive Urgency - may be secondary to patient with dementia who non-adherence with meds. - BP: 210/92 on presentation - PT asymptomatic on evaluation, no symptoms of hypertensive encephalopathy - Labetalol 20 mg IV not given in Ed. - c/w home medications - cardiology consulted, Dr. Duarte - neurology consulted, Dr. Coleman 2) Dizziness - currently denies - secondary to uncontrolled medication - Orthostatic VS - CT Head w/o contrast: no intracraneal hemorrhage. - no motor focalization 3) Hx A Fib - currently sinus rhythm - troponin 0.0180 - EKG: NSR, no ST elevation/depression, no prolonged QTc, QRS, or ND, no peaked or inverted T wave - CXR: (preliminary) no active disease, no change compared to previous study 02/2016: Afib with RVR and chest pain - Pt had elevated troponins - ECHO showed EF of 65% - 24 hour Holter with NSR and 2 runs of Afib but no prolonged arrythmias or pauses - Cardio consult - troponins likely 2/2 Afib with RVR; Afib likely 2/2 hypomagnesemia - pt was discharged home on magnesium and was to f/u with cardio for outpt stress test 07/2015: Chest pain with elevated troponins - Cardiac cath done - showed clean arteries 4) Dementia - Ct head showed brain atrophy - Reports taking Namzaric 5) Hypomagnesemia - resolved - MGsulfate given in ED - Mg on presentation 0.9 - Mg 1.6 6) Prophylaxis measures - DVT ppx: Lovenox 40 mg sc daily <Hal Bustillo - Last Filed: 09/07/17 06:57> Objective - Vital Signs/Intake and Output Vital Signs (last 24 hours): Temp Pulse Resp BP Pulse Ox 97.5 F L 52 L 18 131/81 97 09/07/17 04:52 09/07/17 04:52 09/07/17 04:52 09/07/17 04:52 09/07/17 04:52 - Medications Medications: Current Medications Acetaminophen (Tylenol 325mg Tab) 650 mg PO Q6 PRN PRN Reason: Pain, moderate (4-7) Last Admin: 09/05/17 17:15 Dose: 650 mg Albuterol Sulfate (Albuterol 0.083% Inhal Aruna (2.5 Mg/3 Ml) Ud) 2.5 mg INH RQ6 PRN PRN Reason: Shortness of Breath Carvedilol (Coreg) 12.5 mg PO DAILY [facility] Last Admin: 09/06/17 08:46 Dose: 12.5 mg Clopidogrel Bisulfate (Plavix) 75 mg PO DAILY [facility] Last Admin: 09/06/17 08:46 Dose: 75 mg Enoxaparin Sodium (Lovenox) 40 mg SC DAILY [facility] PRN Reason: Protocol Last Admin: 09/06/17 08:47 Dose: 40 mg Famotidine (Pepcid) 40 mg PO HS [facility] Last Admin: 09/06/17 21:14 Dose: 40 mg Magnesium Chloride (Slow-Mag) 64 mg PO DAILY [facility] Last Admin: 09/06/17 14:01 Dose: 64 mg Valsartan (Diovan) 160 mg PO DAILY [facility] Last Admin: 09/06/17 08:46 Dose: 160 mg - Labs Labs: 09/07/17 05:00 09/06/17 09:35 PT 11.7 Seconds (9.8-13.1) 09/04/17 22:46 INR 1.1 (0.9-1.2) 09/04/17 22:46 APTT 26.8 Seconds (25.6-37.1) 09/04/17 22:46 Attending/Attestation - Attestation I have personally seen and examined this patient.: Yes I have fully participated in the care of the patient.: Yes I have reviewed all pertinent clinical information, including history, physical exam and plan: Yes
[2017-09-05] MEDS: Enoxaparin 40 mg Syringe SC SCH (10:55)
--- NOTE | 2017-09-05 11:28 | RAD ---
HISTORY: Dizziness. COMPARISON: 08/26/2017. FINDINGS: LUNGS: No active pulmonary disease. PLEURA: No significant pleural effusion identified, no pneumothorax apparent. CARDIOVASCULAR: No radiographic findings to suggest acute or significant cardiovascular disease. OSSEOUS STRUCTURES: No significant abnormalities. VISUALIZED UPPER ABDOMEN: Normal. OTHER FINDINGS: None. IMPRESSION: No active disease. No significant interval change compared to the prior examination(s).
--- NOTE | 2017-09-05 11:31 | CP.PCM.CON ---
History of Present Illness - History of Present Illness History of Present Illness: THE PATIENT IS A 76 YEAR OLD FEMALE ADMITTED TO [facility] WITH HYPERTENSIVE ENCEPHALOPATHY AND CARDIOLOGY WAS ASKED TO SEE HER. SHE HAS A HISTORY OF HYPERTENSION AND DEMENTIA. SHE WAS ADMITTED TO [facility] IN JULY OF 2015 AND HAD ATRIAL FIBRILLATION THAT RESOLVED WITH CORRECTION OF HYPOKALEMIA AND HYPOPHOSPHATEMIA. SHE ALSO HAD ELEVATED TROPONINS AND WAS SENT TO [facility] AND HAD A CARDIAC CATHETERIZATION THAT SHOWED NORMAL CORONARY ARTERIES. YESTERDAY SHE WAS DIZZY AND LIGHTHEADED AND WAS BROUGHT TO HER LMD AND SHE HAD AN ELEVATED BLOOD PRESSURE AND WAS SENT TO THE ER. SHE WAS FOUND TO HAVE A BLOOD PRESSURE OF 210/92 AND WAS ALSO FOUND TO HAVE A LOW MAGNESIUM LEVEL AND WAS GIVEN IV MAGNESIUM. IT IS OF NOTE THAT HER DAUGHTER STATES THAT SHE PLACES HER MEDICINES IN A PILLBOX BUT SHE STILL FORGETS TO TAKE THEM AT TIMES. Past Patient History - Past Medical History & Family History Past Medical History?: Yes - Past Social History Alcohol: None Drugs: Denies - CARDIAC Hx Cardiac Disorders: Yes - PULMONARY Hx Respiratory Disorders: Yes - NEUROLOGICAL Hx Neurological Disorder: Yes - HEENT Hx HEENT Problems: No - RENAL Hx Chronic Kidney Disease: No - ENDOCRINE/METABOLIC Hx Endocrine Disorders: No - HEMATOLOGICAL/ONCOLOGICAL Hx Blood Disorders: No - INTEGUMENTARY Hx Dermatological Problems: No - MUSCULOSKELETAL/RHEUMATOLOGICAL Hx Musculoskeletal Disorders: Yes - GASTROINTESTINAL Hx Gall Bladder Disease: Yes Hx Gastritis: Yes - GENITOURINARY/GYNECOLOGICAL Hx Genitourinary Disorders: No - PSYCHIATRIC Hx Psychophysiologic Disorder: No - SURGICAL HISTORY Hx Cholecystectomy: Yes - ANESTHESIA Hx Anesthesia: Yes Hx Anesthesia Reactions: No Hx Malignant Hyperthermia: No Meds Allergies/Adverse Reactions: Allergies Allergy/AdvReac Type Severity Reaction Status Date / Time adhesive tape Allergy RASH Verified 09/04/17 21:46 - Medications Medications: Current Medications Acetaminophen (Tylenol 325mg Tab) 650 mg PO Q6 PRN PRN Reason: Pain, moderate (4-7) Carvedilol (Coreg) 12.5 mg PO DAILY [facility] Last Admin: 09/05/17 10:56 Dose: 12.5 mg Enoxaparin Sodium (Lovenox) 40 mg SC DAILY [facility] PRN Reason: Protocol Last Admin: 09/05/17 10:55 Dose: 40 mg Valsartan (Diovan) 160 mg PO DAILY [facility] Last Admin: 09/05/17 10:56 Dose: 160 mg Physical Exam - Respiratory Exam Respiratory Exam: Clear to Auscultation Bilateral - Cardiovascular Exam Cardiovascular Exam: REGULAR RHYTHM, +S1, +S2 - Extremities Exam Extremities exam: Positive for: normal inspection - Additional Findings Additional findings: BP 210/92 IN ER UPON ARRIVAL BP THIS AM AT 9:35 WAS 141/81 EKG NSR NA 138 K 4.0 MG 0.9 09/04/17 MG 1.6 TODAY Results - Vital Signs Recent Vital Signs: Last Vital Signs Temp 97.9 F 09/05/17 10:01 Pulse 65 09/05/17 10:56 Resp 18 09/05/17 10:01 BP 178/92 H 09/05/17 10:56 Pulse Ox 97 09/05/17 10:01 - Labs Result Diagrams: 09/05/17 04:30 09/05/17 04:30 Labs: Laboratory Results - last 24 hr 09/04/17 09/04/17 09/04/17 22:35 22:46 22:46 WBC 7.7 RBC 4.02 Hgb 12.3 Hct 36.5 MCV 90.7 MCH 30.6 MCHC 33.7 RDW 13.4 Plt Count 172 MPV 11.9 H Neut % (Auto) 60.4 Lymph % (Auto) 25.8 Casey % (Auto) 10.3 H Eos % (Auto) 3.1 Baso % (Auto) 0.4 Neut # (Auto) 4.7 Lymph # (Auto) 2.0 Casey # (Auto) 0.8 Eos # (Auto) 0.2 Baso # (Auto) 0.0 PT INR APTT Sodium 138 Potassium 4.0 Chloride 100 Carbon Dioxide 30 Anion Gap 12 BUN 15 Creatinine 0.7 Est GFR ( Amer) > 60 Est GFR (Non-Af Amer) > 60 POC Glucose (mg/dL) 142 H Random Glucose 119 H Calcium 9.0 Phosphorus 3.0 Magnesium 0.9 L* D Total Bilirubin 0.9 AST 36 D ALT 13 Alkaline Phosphatase 65 Troponin I 0.0180 Total Protein 7.4 Albumin 4.0 Globulin 3.4 Albumin/Globulin Ratio 1.2 Triglycerides 125 D Cholesterol 157 LDL Cholesterol Direct 69 HDL Cholesterol 55 Urine Color Urine Clarity Urine pH Ur Specific [place] Urine Protein Urine Glucose (UA) Urine Ketones Urine Blood Urine Nitrate Urine Bilirubin Urine Urobilinogen Ur Leukocyte Esterase Urine RBC (Auto) Urine Microscopic WBC Ur Squamous Epith Cells Urine Bacteria 09/04/17 09/05/17 09/05/17 22:46 01:55 04:30 WBC 7.7 RBC 3.87 Hgb 11.7 L Hct 35.4 MCV 91.3 MCH 30.1 MCHC 32.9 L RDW 13.8 Plt Count 159 MPV 11.9 H Neut % (Auto) Lymph % (Auto) Casey % (Auto) Eos % (Auto) Baso % (Auto) Neut # (Auto) Lymph # (Auto) Casey # (Auto) Eos # (Auto) Baso # (Auto) PT 11.7 INR 1.1 APTT 26.8 Sodium Potassium Chloride Carbon Dioxide Anion Gap BUN Creatinine Est GFR ( Amer) Est GFR (Non-Af Amer) POC Glucose (mg/dL) Random Glucose Calcium Phosphorus Magnesium Total Bilirubin AST ALT Alkaline Phosphatase Troponin I Total Protein Albumin Globulin Albumin/Globulin Ratio Triglycerides Cholesterol LDL Cholesterol Direct HDL Cholesterol Urine Color Yellow Urine Clarity Slighty-cloudy Urine pH 7.0 Ur Specific [place] 1.011 Urine Protein Negative Urine Glucose (UA) Neg Urine Ketones Negative Urine Blood Small Urine Nitrate Negative Urine Bilirubin Negative Urine Urobilinogen 0.2-1.0 Ur Leukocyte Esterase Large Urine RBC (Auto) 6 H Urine Microscopic WBC 12 H Ur Squamous Epith Cells 5 Urine Bacteria Occ H 09/05/17 04:30 WBC RBC Hgb Hct MCV MCH MCHC RDW Plt Count MPV Neut % (Auto) Lymph % (Auto) Casey % (Auto) Eos % (Auto) Baso % (Auto) Neut # (Auto) Lymph # (Auto) Casey # (Auto) Eos # (Auto) Baso # (Auto) PT INR APTT Sodium 140 Potassium 3.6 Chloride 101 Carbon Dioxide 31 H Anion Gap 12 BUN 13 Creatinine 0.7 Est GFR ( Amer) > 60 Est GFR (Non-Af Amer) > 60 POC Glucose (mg/dL) Random Glucose 99 Calcium 9.0 Phosphorus 3.0 Magnesium 1.6 Total Bilirubin 0.5 AST 17 ALT 24 Alkaline Phosphatase 57 Troponin I Total Protein 6.7 Albumin 3.6 Globulin 3.1 Albumin/Globulin Ratio 1.2 Triglycerides Cholesterol LDL Cholesterol Direct HDL Cholesterol Urine Color Urine Clarity Urine pH Ur Specific [place] Urine Protein Urine Glucose (UA) Urine Ketones Urine Blood Urine Nitrate Urine Bilirubin Urine Urobilinogen Ur Leukocyte Esterase Urine RBC (Auto) Urine Microscopic WBC Ur Squamous Epith Cells Urine Bacteria Assessment & Plan - Assessment and Plan (Free Text) Assessment: UNCONTROLLED HYPERTENSION SECONDARY TO THE PATIENT'S FORGETTING TO TAKE HER MEDICINES ON A REGULAR BASIS DEMENTIA HYPOPHOSPHATEMIA HISTORY OF HYPOKALEMIA HISTORY OF ATRIAL FIBRILLATION JULY 2015 WHEN SHE HAD BOTH HYPOKALEMIA AND HYPOPHOSPHATEMIA-SHE PRESENTLY REMAINS IN SINUS RHYTHM Plan: THE PATIENT WAS ADMITTED TO ON TELEMETRY HER HYPOPHOSPHATEMIA WAS CORRECTED CONTINUE CARVEDILOL AND VALSARTAN AND CONTINUE TO MONITOR BLOOD PRESSURE ECHOCARDIOGRAM
--- NOTE | 2017-09-05 17:01 | CARD ---
APPROVED REPORT EKG Measurement Heart [id number] <Conclusion> Normal sinus rhythm ST & T wave abnormality, consider inferior ischemia Abnormal ECG
[2017-09-05] MEDS ORDERED: Albuterol 0.083% Inhal Sol (2.5 mg/3 mL) UD INH PRN (17:16)
--- NOTE | 2017-09-06 06:56 | CP.PCM.CON ---
History of Present Illness - History of Present Illness History of Present Illness: CONSULT DICTATED RIGHT SUB CORTICAL DYSFUNCTIN MANIFESTING LEFT ATAXIC HEMIPARESIS PROBABLE SMALL VESSEL DISEASE ANTIPLATELETS/ STATIN/ARB OR ACEI PT /DVT PROPHYLAXIS MRI/ECHO/DOPPLER /LABS REQUESTED THANKS Past Patient History - Past Medical History & Family History Past Medical History?: Yes - Past Social History Smoking Status: Unknown If Ever Smoked - CARDIAC Hx Cardiac Disorders: Yes Hx Atrial Fibrillation: Yes Hx Hypertension: Yes - PULMONARY Hx Respiratory Disorders: Yes Hx Asthma: Yes - NEUROLOGICAL Hx Neurological Disorder: Yes Hx Dementia: Yes - HEENT Hx HEENT Problems: No - RENAL Hx Chronic Kidney Disease: No - ENDOCRINE/METABOLIC Hx Endocrine Disorders: No - HEMATOLOGICAL/ONCOLOGICAL Hx Blood Disorders: No Hx AIDS: No - INTEGUMENTARY Hx Dermatological Problems: No - MUSCULOSKELETAL/RHEUMATOLOGICAL Hx Musculoskeletal Disorders: Yes Hx Arthritis: Yes Hx Falls: No - GASTROINTESTINAL Hx Gastrointestinal Disorders: Yes Hx Gall Bladder Disease: Yes Hx Gastritis: Yes - GENITOURINARY/GYNECOLOGICAL Hx Genitourinary Disorders: No - PSYCHIATRIC Hx Psychophysiologic Disorder: No Hx Substance Use: No - SURGICAL HISTORY Hx Surgeries: Yes Hx Cholecystectomy: Yes - ANESTHESIA Hx Anesthesia: Yes Hx Anesthesia Reactions: No Hx Malignant Hyperthermia: No Has any member of the family had a problem w/ anesthesia?: No Meds Allergies/Adverse Reactions: Allergies Allergy/AdvReac Type Severity Reaction Status Date / Time adhesive tape Allergy RASH Verified 09/04/17 21:46 - Medications Medications: Current Medications Acetaminophen (Tylenol 325mg Tab) 650 mg PO Q6 PRN PRN Reason: Pain, moderate (4-7) Last Admin: 09/05/17 17:15 Dose: 650 mg Albuterol Sulfate (Albuterol 0.083% Inhal Aruna (2.5 Mg/3 Ml) Ud) 2.5 mg INH RQ6 PRN PRN Reason: Shortness of Breath Carvedilol (Coreg) 12.5 mg PO DAILY [facility] Last Admin: 09/05/17 10:56 Dose: 12.5 mg Clopidogrel Bisulfate (Plavix) 75 mg PO DAILY [facility] Enoxaparin Sodium (Lovenox) 40 mg SC DAILY [facility] PRN Reason: Protocol Last Admin: 09/05/17 10:55 Dose: 40 mg Valsartan (Diovan) 160 mg PO DAILY [facility] Last Admin: 09/05/17 10:56 Dose: 160 mg Results - Vital Signs Recent Vital Signs: Last Vital Signs Temp 97.8 F 09/06/17 05:07 Pulse 57 L 09/06/17 05:07 Resp 18 09/06/17 05:07 BP 171/76 H 09/06/17 05:07 Pulse Ox 98 09/06/17 05:07 - Labs Result Diagrams: 09/05/17 04:30 09/05/17 04:30 Labs: Laboratory Results - last 24 hr 09/04/17 09/04/17 22:35 22:45 POC Glucose (mg/dL) 142 H Hemoglobin A1c 5.3
[2017-09-06] MEDS: Enoxaparin 40 mg Syringe SC SCH (08:47)
--- NOTE | 2017-09-06 09:12 | CP.PCM.PN ---
<Roderick Parks - Last Filed: 09/06/17 11:17> Subjective - Date & Time of Evaluation Date of Evaluation: 09/06/17 Time of Evaluation: 07:30 - Subjective Subjective: Patient seen and examined at bedside this morning. Patient laying comfortably in bed, NAD. Patient has no complaints. Seen by neurology and cardiology. Patient denies headaches, vision changes, dizziness, chest pain, SOB, abdominal pain, nausea, vomiting, diarrhea, dysuria, or fever. Objective - Vital Signs/Intake and Output Vital Signs (last 24 hours): Temp Pulse Resp BP Pulse Ox 97.8 F 60 18 170/90 H 97 09/06/17 08:07 09/06/17 08:46 09/06/17 08:07 09/06/17 08:46 09/06/17 08:07 - Medications Medications: Current Medications Acetaminophen (Tylenol 325mg Tab) 650 mg PO Q6 PRN PRN Reason: Pain, moderate (4-7) Last Admin: 09/05/17 17:15 Dose: 650 mg Albuterol Sulfate (Albuterol 0.083% Inhal Aruna (2.5 Mg/3 Ml) Ud) 2.5 mg INH RQ6 PRN PRN Reason: Shortness of Breath Carvedilol (Coreg) 12.5 mg PO DAILY [facility] Last Admin: 09/06/17 08:46 Dose: 12.5 mg Clopidogrel Bisulfate (Plavix) 75 mg PO DAILY [facility] Last Admin: 09/06/17 08:46 Dose: 75 mg Enoxaparin Sodium (Lovenox) 40 mg SC DAILY [facility] PRN Reason: Protocol Last Admin: 09/06/17 08:47 Dose: 40 mg Famotidine (Pepcid) 40 mg PO [facility] Valsartan (Diovan) 160 mg PO DAILY [facility] Last Admin: 09/06/17 08:46 Dose: 160 mg - Labs Labs: 09/05/17 04:30 09/05/17 04:30 PT 11.7 Seconds (9.8-13.1) 09/04/17 22:46 INR 1.1 (0.9-1.2) 09/04/17 22:46 APTT 26.8 Seconds (25.6-37.1) 09/04/17 22:46 - Constitutional Appears: No Acute Distress - Head Exam Head Exam: ATRAUMATIC, NORMAL INSPECTION, NORMOCEPHALIC - Eye Exam Eye Exam: Normal appearance - ENT Exam ENT Exam: Mucous Membranes Moist - Neck Exam Neck Exam: Full ROM. absent: Tenderness - Respiratory Exam Respiratory Exam: Clear to Ausculation Bilateral, NORMAL BREATHING PATTERN. absent: Decreased Breath Sounds, Rales, Rhonchi, Wheezes, Respiratory Distress - Cardiovascular Exam Cardiovascular Exam: REGULAR RHYTHM - GI/Abdominal Exam GI & Abdominal Exam: Soft, Normal Bowel Sounds. absent: Distended, Tenderness - Extremities Exam Extremities Exam: Normal Inspection. absent: Calf Tenderness, Pedal Edema, Tenderness - Neurological Exam Neurological Exam: Alert, Awake - Skin Skin Exam: Dry, Intact, Normal Color, Warm Assessment and Plan - Assessment and Plan (Free Text) Assessment: 75 y/o woman w/ pmh of HTN, A fib, Dementia admitted for Hypertensive encephalopathy and Hypomagnesemia Plan: 1) Hypertensive Urgency - resolved - may be secondary to patient with dementia who non-adherence with meds. - BP: 210/92 on presentation - PT asymptomatic on evaluation, no symptoms of hypertensive encephalopathy - Labetalol 20 mg IV not given in Ed. - c/w home medications - cardiology consulted, Dr. Duarte, recommendations appreciated - neurology consulted, Dr. Coleman, recommendations appreciated - BP intermittently elevated - [facility] called to see patient to initiate services at home 2) Dizziness - currently denies - Orthostatic VS - CT Head w/o contrast: no intracraneal hemorrhage. - no motor focalization 3) Hx A Fib - currently sinus rhythm - troponin 0.0180 - EKG: NSR, no ST elevation/depression, no prolonged QTc, QRS, or [place], no peaked or inverted T wave - CXR: (preliminary) no active disease, no change compared to previous study - f/u echocardiogram 02/2016: Afib with RVR and chest pain - Pt had elevated troponins - ECHO showed EF of 65% - 24 hour Holter with NSR and 2 runs of Afib but no prolonged arrythmias or pauses - Cardio consult - troponins likely 2/2 Afib with RVR; Afib likely 2/2 hypomagnesemia - pt was discharged home on magnesium and was to f/u with cardio for outpt stress test 07/2015: Chest pain with elevated troponins - Cardiac cath done - showed clean arteries 4) Dementia - CT head showed brain atrophy - neurology consult, Dr. Coleman, recommendations appreciated - ESR: 19 - Vit B12: 274 - folate: pending - TSH: 3.57 - f/u brain MRI w/o - Reports taking Namzaric 5) Hypomagnesemia - resolved - MGsulfate given in ED - Mg on presentation 0.9 - Mg 1.6 - Calcium, chloride, magnesium 64 mg PO daily 6) Prophylaxis measures - DVT ppx: Lovenox 40 mg sc daily <Suraj Bermudez - Last Filed: 09/08/17 06:51> Objective - Vital Signs/Intake and Output Vital Signs (last 24 hours): Temp Pulse Resp BP Pulse Ox 97.5 F L 63 18 158/51 H 98 09/07/17 09:00 09/07/17 10:13 09/07/17 09:00 09/07/17 10:13 09/07/17 09:00 - Labs Labs: 09/07/17 05:00 09/06/17 09:35 PT 11.7 Seconds (9.8-13.1) 09/04/17 22:46 INR 1.1 (0.9-1.2) 09/04/17 22:46 APTT 26.8 Seconds (25.6-37.1) 09/04/17 22:46 Attending/Attestation - Attestation I have personally seen and examined this patient.: Yes I have fully participated in the care of the patient.: Yes I have reviewed all pertinent clinical information, including history, physical exam and plan: Yes
[2017-09-06 09:37] LABS: HEMOGLOBIN 11.5 g/dL (12.0-16.0); MEAN CELL VOLUME 91.4 fl (81.0-99.0); MEAN CORPUSCULAR HEMOGLOBIN 30.8 pg (27.0-31.0); MEAN CORPUSCULAR HGB CONC 33.7 g/dL (33.0-37.0); RBC 3.73 Mil/uL (3.80-5.20); RED CELL DISTRIBUTION WIDTH 13.8 % (11.5-14.5); WHITE BLOOD COUNT 5.1 K/uL (4.8-10.8)
[2017-09-06 09:52] LABS: BLOOD UREA NITROGEN 15 mg/dl (7-17); GFR AFRICAN-AMERICAN > 60; GFR NON-AFRICAN AMERICAN > 60
--- NOTE | 2017-09-06 12:57 | CP.PCM.PN ---
Subjective - Date & Time of Evaluation Date of Evaluation: 09/06/17 Time of Evaluation: 08:15 - Subjective Subjective: NO COMPLAINTS Objective - Vital Signs/Intake and Output Vital Signs (last 24 hours): Temp Pulse Resp BP Pulse Ox 97.7 F 51 L 18 96/57 L 95 09/06/17 12:17 09/06/17 12:17 09/06/17 12:17 09/06/17 12:17 09/06/17 12:17 - Medications Medications: Current Medications Acetaminophen (Tylenol 325mg Tab) 650 mg PO Q6 PRN PRN Reason: Pain, moderate (4-7) Last Admin: 09/05/17 17:15 Dose: 650 mg Albuterol Sulfate (Albuterol 0.083% Inhal Aruna (2.5 Mg/3 Ml) Ud) 2.5 mg INH RQ6 PRN PRN Reason: Shortness of Breath Carvedilol (Coreg) 12.5 mg PO DAILY [facility] Last Admin: 09/06/17 08:46 Dose: 12.5 mg Clopidogrel Bisulfate (Plavix) 75 mg PO DAILY [facility] Last Admin: 09/06/17 08:46 Dose: 75 mg Enoxaparin Sodium (Lovenox) 40 mg SC DAILY [facility] PRN Reason: Protocol Last Admin: 09/06/17 08:47 Dose: 40 mg Famotidine (Pepcid) 40 mg PO HS [facility] Magnesium Chloride (Slow-Mag) 64 mg PO DAILY [facility] Valsartan (Diovan) 160 mg PO DAILY [facility] Last Admin: 09/06/17 08:46 Dose: 160 mg - Labs Labs: 09/06/17 09:34 09/06/17 09:35 PT 11.7 Seconds (9.8-13.1) 09/04/17 22:46 INR 1.1 (0.9-1.2) 09/04/17 22:46 APTT 26.8 Seconds (25.6-37.1) 09/04/17 22:46 - Respiratory Exam Respiratory Exam: Clear to Ausculation Bilateral - Cardiovascular Exam Cardiovascular Exam: REGULAR RHYTHM, +S1, +S2 - Additional Findings Additional findings: UROLOGY CONSULT REVIEWED Assessment and Plan - Assessment and Plan (Free Text) Assessment: HYPERTENSION DEMENTIA Plan: CONTINUE DIOVAN AND CARVEDILOL NEUROLOGY WORK UP IN PROGRESS
[2017-09-06 14:00] LABS: FOLATE 9.1 ng/mL
[2017-09-06] MEDS: Magnesium Chloride 64 mg ER Tab PO SCH (14:01)
--- NOTE | 2017-09-06 14:45 | MRI ---
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 FINDINGS: HEMORRHAGE: None DWI: No evidence of an acute or early subacute infarction. BRAIN PARENCHYMA: No mass effect or edema. Mild volume loss is noted. Mild white matter changes are noted also suggestive of chronic microvascular ischemic disease. VENTRICLES: Unremarkable. No hydrocephalus. CRANIUM: Unremarkable. ORBITS: Grossly unremarkable. PARANASAL SINUSES/MASTOIDS: Clear VASCULAR SYSTEM: Skull base flow voids intact. OTHER FINDINGS: None. IMPRESSION: No evidence of diffusion restriction in the brain to suggest acute or subacute infarction. No evidence of acute pathology in the brain. Mild atrophy and mild chronic microvascular ischemic disease.
--- NOTE | 2017-09-06 16:06 | US ---
PROCEDURE: Duplex ultrasound of the carotid and vertebral arteries. HISTORY: hypertensive emergency COMPARISON: Comparison is made with the previous study dated 04/06/2017 TECHNIQUE: Grayscale and duplex Doppler evaluation of the cervical carotid and vertebral arteries were performed. The common carotid, carotid bifurcations and cervical ICA and proximal ECA were evaluated. The vertebral arteries were evaluated for gross patency and direction. FINDINGS: RIGHT CAROTID ARTERIES: Common Carotid Artery: Normal. Maximal flow velocity of 64.1 cm/s. Carotid Bifurcation: Small calcified plaques are noted without evidence of significant stenosis Internal Carotid Artery:Tortuous. Maximal flow velocity of 108.1 cm/s. External Carotid Artery (proximal branches): Normal. Maximal flow velocity of 73.5 cm/s. ICA/CCA Ratio: Within the normal limits LEFT CAROTID ARTERIES: Common Carotid Artery: Normal. Maximal flow velocity of 93.5 cm/s. Carotid Bifurcation: Small calcified plaques. Internal Carotid Artery:Normal. Maximal flow velocity of 93.5 cm/s. External Carotid Artery (proximal branches): Normal. Maximal flow velocity of 69.1 cm/s. ICA/CCA Ratio: Within the normal limits VERTEBRAL ARTERIES: Right Vertebral Artery: Patent. Antegrade flow. Left Vertebral Artery: Patent. Antegrade flow. OTHER FINDINGS: None. IMPRESSION: No significant interval change since the previous exam. Small calcified plaques at the carotid bifurcation bilaterally. No evidence of hemodynamically significant stenosis in the carotid and vertebral arteries at the neck.
--- NOTE | 2017-09-06 18:37 | CON ---
DATE: ATTENDING PHYSICIAN: Dr. Bustillo LOCATION: The patient is in room #410, bed 1. REASON FOR CONSULTATION: Dizziness. CHIEF COMPLAINT: The patient was advised to come to [facility] with a history of waking up with dizziness. From neurological point of view, I was called in to evaluate her for further management. HISTORY OF PRESENT ILLNESS: Ms. Amy Barboza is a 76-year-old right-handed, , Kyrgyz-speaking female, presenting with waking up with dizziness associating with high blood pressure. She went to bed normal the day before yesterday night. She woke up with dizzy spell, lightheaded, losing balance, associating with nauseousness and neck pain. No similar episodes happened in the past. No involuntary movements, loss of consciousness or falls related to this problem. She denies headache, visual or bulbar dysfunction at present. Because of the presenting problem, the patient decided to see her primary care physician, and she was advised to go back to hospital for further evaluation due to her new neurological symptoms. PAST MEDICAL HISTORY: Hypertension, right knee arthritis, for the last 2 months; dementia; gastritis; gallbladder disease; chronic kidney disease. PAST SURGICAL HISTORY: Status post cholecystectomy. PERSONAL HISTORY: Denies smoking or alcohol use. ALLERGIES: NO KNOWN ALLERGIES. REVIEW OF SYSTEMS: All 12-point systems being reviewed. From Neuro, new dizziness. MEDICATIONS: ProAir, Coreg, Nexium, Diovan, Benadryl, Cipro, cyclobenzaprine, Motrin, albuterol and prednisone. PHYSICAL EXAMINATION: VITAL SIGNS: Blood pressure 171/76, mean arterial pressure of 107, respiratory rate 16, temperature 97.8, and pulse rate 57 and regular. NECK: Supple. No carotid bruit. HEART: Heart sounds are regular. CHEST: Fair air entry. EXTREMITIES: No edema of legs. NEUROLOGIC: MENTAL STATUS: She is easily arousable on calling her first name. She is awake, alert, oriented to person, place and time. Speech is clear, communicable only in Kyrgyz. She follows 2 to 3-step complex command. No right and left confusion. No sign of depression. No sign of suicidal ideation. CRANIAL NERVE EXAMINATION: Visual field intact. Pupils react to light. Extraocular movement normal. No nystagmus. No facial sensory deficit. Significant facial asymmetry manifesting with left nasolabial fold flattening. Hearing seems to be intact. Tongue is midline. Good gag. MOTOR: On outstretched hand with eyes closed, she requires with her hand raised to rest her left arm when she stretched her arms up. No pronator drift noted. No tremor. She could be able to lift both lower extremities against the gravity; however, she could able to do right more than her left leg, though she has a right knee pain. DEEP TENDON REFLEXES: Biceps, brachioradialis, and triceps absent. Left knee 2+ with cross adduction of the right knee. Left knee absent. Both ankles are absent. The patient kept her left leg externally rotated. Plantars are upgoing on her left side and right side was downgoing. SENSORY: No cortical sensory loss. No extinction to double simultaneous stimuli. Mild sensory motor neuropathy noted. COORDINATION: Usfsvt-iu-sazm tested, missed her nose 3/3 times on the left side. WALKING: Tandem walking and marching in one place. The patient is leaning to her left side. WORKUP: CT of the head being reviewed, small vessel disease with mild atrophy noted. No acute pathology seen. Blood workup; WBC 7.7, hemoglobin 11.7, hematocrit 35.4 and platelet 159. PT 11.7, INR 1.1, PTT 26.8. Sodium 140, potassium 3.6, chloride 101, bicarbonate 31, BUN 13, creatinine 0.7 with GFR more than 60, random glucose 142, hemoglobin A1c 5.3, calcium 9.0, phosphorus 3.0, magnesium on admission 0.9, with supplement 1.6. Liver functions are normal. Triglyceride 125, cholesterol 157, LDL 69 and HDL 55. Urinalysis shows occasional bacteria. Her EKG, normal sinus rhythm. CONCLUSION: 1. Ms. Amy Barboza as per neurological examination is presenting with right subcortical dysfunction. It could be internal capsule versus pontine ischemic process, manifesting with left ataxic hemiparesis. This is all consistent with small-vessel disease, probably related to her uncontrolled hypertension. 2. As per the history, the patient is suffering mild dementia; however, on the initial neurological examination, she seems to be normal for her age. 3. Mild sensory motor neuropathy. 4. Essential hypertension, arthritis on her right knee. RECOMMENDATIONS: 1. MRI of the brain to rule out any ischemic process. 2. Carotid Doppler to rule out stenosis. 3. Echocardiogram to rule out any cardioembolic phenomena. 4. Blood workup for hypercoagulable stage, dementia as well as for her stroke. 5. Agree with low dose of statin, angiotensin receptor blockers and antiplatelets. I prefer Plavix, considering her symptoms are related to vertebrobasilar insufficiency. 6. For DVT prophylaxis, blood pressure control to keep mean arterial pressure around 100. Out of bed and physical therapy should be instituted as early as possible. 7. If the patient is medically stable for next 24-hour period, the patient can be discharged and should have follow up visit with me as an outpatient. Yaw Coleman MD
--- NOTE | 2017-09-06 21:04 | CP.PCM.PN ---
Subjective - Date & Time of Evaluation Date of Evaluation: 09/06/17 Time of Evaluation: 21:02 - Subjective Subjective: ALL WORK UP REVIEWED MRI BRAIN AND CAROTID DOPPLER WERE NEGATIVE CONTINUE THE CURRENT RECOMMENDATION IF MEDICALLY STABLE D/C HOME AND FOLLOW UP AN OP Objective - Vital Signs/Intake and Output Vital Signs (last 24 hours): Temp Pulse Resp BP Pulse Ox 97.9 F 69 20 142/83 98 09/06/17 20:53 09/06/17 20:53 09/06/17 20:53 09/06/17 20:53 09/06/17 20:53 - Medications Medications: Current Medications Acetaminophen (Tylenol 325mg Tab) 650 mg PO Q6 PRN PRN Reason: Pain, moderate (4-7) Last Admin: 09/05/17 17:15 Dose: 650 mg Albuterol Sulfate (Albuterol 0.083% Inhal Aruna (2.5 Mg/3 Ml) Ud) 2.5 mg INH RQ6 PRN PRN Reason: Shortness of Breath Carvedilol (Coreg) 12.5 mg PO DAILY [facility] Last Admin: 09/06/17 08:46 Dose: 12.5 mg Clopidogrel Bisulfate (Plavix) 75 mg PO DAILY [facility] Last Admin: 09/06/17 08:46 Dose: 75 mg Enoxaparin Sodium (Lovenox) 40 mg SC DAILY [facility] PRN Reason: Protocol Last Admin: 09/06/17 08:47 Dose: 40 mg Famotidine (Pepcid) [address] [facility] Magnesium Chloride (Slow-Mag) 64 mg PO DAILY [facility] Last Admin: 09/06/17 14:01 Dose: 64 mg Valsartan (Diovan) 160 mg PO DAILY [facility] Last Admin: 09/06/17 08:46 Dose: 160 mg - Labs Labs: 09/06/17 09:34 09/06/17 09:35 PT 11.7 Seconds (9.8-13.1) 09/04/17 22:46 INR 1.1 (0.9-1.2) 09/04/17 22:46 APTT 26.8 Seconds (25.6-37.1) 09/04/17 22:46
[2017-09-07 00:52] VITALS: RESP 18
[2017-09-07 04:53] VITALS: TEMP 97.5
[2017-09-07 06:05] LABS: HEMOGLOBIN 11.1 g/dL (12.0-16.0); MEAN CELL VOLUME 92.5 fl (81.0-99.0); MEAN CORPUSCULAR HEMOGLOBIN 30.2 pg (27.0-31.0); MEAN CORPUSCULAR HGB CONC 32.6 g/dL (33.0-37.0); RBC 3.69 Mil/uL (3.80-5.20); RED CELL DISTRIBUTION WIDTH 13.8 % (11.5-14.5)
[2017-09-07 07:48] VITALS: O2SAT 98
--- NOTE | 2017-09-07 08:35 | CP.PCM.PN ---
Subjective - Date & Time of Evaluation Date of Evaluation: 09/07/17 Time of Evaluation: 08:00 - Subjective Subjective: NO COMPLAINTS WANTS TO GO HOME Objective - Vital Signs/Intake and Output Vital Signs (last 24 hours): Temp Pulse Resp BP Pulse Ox 97.5 F L 57 L 18 158/81 H 98 09/07/17 07:48 09/07/17 07:48 09/07/17 07:48 09/07/17 07:48 09/07/17 07:48 - Medications Medications: Current Medications Acetaminophen (Tylenol 325mg Tab) 650 mg PO Q6 PRN PRN Reason: Pain, moderate (4-7) Last Admin: 09/05/17 17:15 Dose: 650 mg Albuterol Sulfate (Albuterol 0.083% Inhal Aruna (2.5 Mg/3 Ml) Ud) 2.5 mg INH RQ6 PRN PRN Reason: Shortness of Breath Carvedilol (Coreg) 12.5 mg PO DAILY [facility] Last Admin: 09/06/17 08:46 Dose: 12.5 mg Clopidogrel Bisulfate (Plavix) 75 mg PO DAILY [facility] Last Admin: 09/06/17 08:46 Dose: 75 mg Enoxaparin Sodium (Lovenox) 40 mg SC DAILY [facility] PRN Reason: Protocol Last Admin: 09/06/17 08:47 Dose: 40 mg Famotidine (Pepcid) 40 mg PO HS [facility] Last Admin: 09/06/17 21:14 Dose: 40 mg Magnesium Chloride (Slow-Mag) 64 mg PO DAILY [facility] Last Admin: 09/06/17 14:01 Dose: 64 mg Valsartan (Diovan) 160 mg PO DAILY [facility] Last Admin: 09/06/17 08:46 Dose: 160 mg - Labs Labs: 09/07/17 05:00 09/06/17 09:35 PT 11.7 Seconds (9.8-13.1) 09/04/17 22:46 INR 1.1 (0.9-1.2) 09/04/17 22:46 APTT 26.8 Seconds (25.6-37.1) 09/04/17 22:46 - Respiratory Exam Respiratory Exam: Clear to Ausculation Bilateral - Cardiovascular Exam Cardiovascular Exam: REGULAR RHYTHM, +S1, +S2 - Additional Findings Additional findings: NEUROLOGY NOTES WELL MRI AND CAROTID US NOTES REVIEWED Assessment and Plan - Assessment and Plan (Free Text) Assessment: HYPERTENSION DEMENTIA Plan: CONTINUE CARVEDILOL, VALSARTAN AND CLOPIDOGREL OK TO DISCHARGE FROM CARDIAC [facility]
--- NOTE | 2017-09-07 09:26 | CP.PCM.DIS ---
Provider - Provider Date of Admission: 09/05/17 08:48 Attending physician: Hal Bustillo MD Time Spent in preparation of Discharge (in minutes): 15 Hospital Course - Lab Results Lab Results: Most Recent Lab Values WBC 5.0 K/uL (4.8-10.8) 09/07/17 05:00 RBC 3.69 Mil/uL (3.80-5.20) L 09/07/17 05:00 Hgb 11.1 g/dL (12.0-16.0) L 09/07/17 05:00 Hct 34.2 % (34.0-47.0) 09/07/17 05:00 MCV 92.5 fl (81.0-99.0) 09/07/17 05:00 MCH 30.2 pg (27.0-31.0) 09/07/17 05:00 MCHC 32.6 g/dL (33.0-37.0) L 09/07/17 05:00 RDW 13.8 % (11.5-14.5) 09/07/17 05:00 Plt Count 145 K/uL (130-400) 09/07/17 05:00 MPV 11.9 fl (7.2-11.7) H 09/05/17 04:30 Neut % (Auto) 60.4 % (50.0-75.0) 09/04/17 22:46 Lymph % (Auto) 25.8 % (20.0-40.0) 09/04/17 22:46 [place] % (Auto) 10.3 % (0.0-10.0) H 09/04/17 22:46 Eos % (Auto) 3.1 % (0.0-4.0) 09/04/17 22:46 Baso % (Auto) 0.4 % (0.0-2.0) 09/04/17 22:46 Neut # (Auto) 4.7 K/uL (1.8-7.0) 09/04/17 22:46 Lymph # (Auto) 2.0 K/uL (1.0-4.3) 09/04/17 22:46 [place] # (Auto) 0.8 K/uL (0.0-0.8) 09/04/17 22:46 Eos # (Auto) 0.2 K/uL (0.0-0.7) 09/04/17 22:46 Baso # (Auto) 0.0 K/uL (0.0-0.2) 09/04/17 22:46 ESR 19 mm/hr (0-30) 09/06/17 05:30 PT 11.7 Seconds (9.8-13.1) 09/04/17 22:46 INR 1.1 (0.9-1.2) 09/04/17 22:46 APTT 26.8 Seconds (25.6-37.1) 09/04/17 22:46 Sodium 137 mmol/l (132-148) 09/06/17 09:35 Potassium 3.6 MMOL/L (3.6-5.0) 09/06/17 09:35 Chloride 101 mmol/L (98-107) 09/06/17 09:35 Carbon Dioxide 29 mmol/L (22-30) 09/06/17 09:35 Anion Gap 11 (10-20) 09/06/17 09:35 BUN 15 mg/dl (7-17) 09/06/17 09:35 Creatinine 0.7 mg/dl (0.7-1.2) 09/06/17 09:35 Est GFR ( Amer) > 60 09/06/17 09:35 Est GFR (Non-Af Amer) > 60 09/06/17 09:35 POC Glucose (mg/dL) 142 mg/dL (65-110) H 09/04/17 22:35 Random Glucose 89 mg/dL (65-105) 09/06/17 09:35 Hemoglobin A1c 5.3 % (4.2-6.5) 09/04/17 22:45 Calcium 9.0 mg/dL (8.4-10.2) 09/06/17 09:35 Phosphorus 3.0 mg/dl (2.5-4.5) 09/05/17 04:30 Magnesium 1.6 MG/DL (1.6-2.3) 09/05/17 04:30 Total Bilirubin 0.5 mg/dl (0.2-1.3) 09/05/17 04:30 AST 17 U/L (14-36) 09/05/17 04:30 ALT 24 U/L (9-52) 09/05/17 04:30 Alkaline Phosphatase 57 U/L (38-126) 09/05/17 04:30 Troponin I 0.0180 ng/mL (0.00-0.120) 09/04/17 22:46 C-React Prot High Sens 2.80 mg/L (1.00-3.00) 09/06/17 05:30 Total Protein 6.7 G/DL (6.3-8.2) 09/05/17 04:30 Albumin 3.6 g/dL (3.5-5.0) 09/05/17 04:30 Globulin 3.1 gm/dL (2.2-3.9) 09/05/17 04:30 Albumin/Globulin Ratio 1.2 (1.0-2.1) 09/05/17 04:30 Triglycerides 125 mg/DL (0-149) D 09/04/17 22:46 Cholesterol 157 mg/dL (0-199) 09/04/17 22:46 LDL Cholesterol Direct 69 mg/dL (0-129) 09/04/17 22:46 HDL Cholesterol 55 MG/DL (30-70) 09/04/17 22:46 Vitamin B12 274 pg/mL (239-931) 09/06/17 05:30 Folate 9.1 ng/mL 09/06/17 05:30 TSH 3rd Generation 3.57 mIU/ML (0.46-4.68) 09/06/17 05:30 Urine Color Yellow (YELLOW) 09/05/17 01:55 Urine Clarity Slighty-cloudy (Clear) 09/05/17 01:55 Urine pH 7.0 (5.0-8.0) 09/05/17 01:55 Ur Specific [place] 1.011 (1.003-1.030) 09/05/17 01:55 Urine Protein Negative mg/dL (NEGATIVE) 09/05/17 01:55 Urine Glucose (UA) Neg mg/dL (Normal) 09/05/17 01:55 Urine Ketones Negative mg/dL (NEGATIVE) 09/05/17 01:55 Urine Blood Small (NEGATIVE) 09/05/17 01:55 Urine Nitrate Negative (NEGATIVE) 09/05/17 01:55 Urine Bilirubin Negative (NEGATIVE) 09/05/17 01:55 Urine Urobilinogen 0.2-1.0 mg/dL (0.2-1.0) 09/05/17 01:55 Ur Leukocyte Esterase Large Elias/uL (Negative) 09/05/17 01:55 Urine RBC (Auto) 6 /hpf (0-3) H 09/05/17 01:55 Urine Microscopic WBC 12 /hpf (0-5) H 09/05/17 01:55 Ur Squamous Epith Cells 5 /hpf (0-5) 09/05/17 01:55 Urine Bacteria Occ (<OCC) H 09/05/17 01:55 RPR Nonreactive (NONREACTIVE) 09/06/17 05:30 - Hospital Course Hospital Course: 75 y/o woman w/ pmh of HTN, A fib, Dementia sent to ED by PMD and admitted for hypertensive encephalopathy and hypomagnesemia. Patient had CBC WNL,CMP showing hypomagnesia but otherwise normal, troponin negative, EKG showed no acute change, CT head w/o done in ED that was negative for hemorrhage or any definite acute intracranial abnormality. Patient seen by cardiology and neurology. Carotid U/S showed no significant stenosis and brain MRI showed mild atrophy and mild chronic microvascular ischemic disease, no acute/subacute infarction, no acute pathology. Patient reports feeling better and wishes to go home. Patient has been seen, examined, and deemed medically fit for discharge home. [place] visiting nurse contacted to evlaute patient at home for services to ensure patient receives medications to control BP. Discharge Exam - Head Exam Head Exam: ATRAUMATIC, NORMAL INSPECTION, NORMOCEPHALIC - Eye Exam Eye Exam: Normal appearance - ENT Exam ENT Exam: Mucous Membranes Moist - Neck Exam Neck exam: Full Rom - Respiratory Exam Respiratory Exam: Clear to PA & Lateral, NORMAL BREATHING PATTERN. absent: Decreased Breath Sounds, Prolonged Expiratory Phase, Rales, Rhonchi, Wheezes, Respiratory Distress - Cardiovascular Exam Cardiovascular Exam: REGULAR RHYTHM. absent: Tachycardia - GI/Abdominal Exam GI & Abdominal Exam: Normal Bowel Sounds, Soft. absent: Distended, Tenderness - Extremities Exam Extremities exam: normal inspection - Neurological Exam Neurological exam: Alert, Oriented x3 - Skin Skin Exam: Dry, Intact, Normal Color, Warm Discharge Plan - Follow Up Plan Condition: GOOD Disposition: HOME/ ROUTINE Patient education suggested?: Yes Instructions: Near Syncope (ED), Dizziness (GEN) Referrals: Hal Bustillo MD [Family Provider] - Yaw Coleman MD [Medical Doctor] - Sourav Mcintyre MD [Staff Provider] -
[2017-09-07] MEDS: Magnesium Chloride 64 mg ER Tab PO SCH (10:13)
[2017-09-07] MEDS: Enoxaparin 40 mg Syringe SC SCH (10:15)
[2017-09-07 10:17] VITALS: BP 158/51; PULSE 63
--- NOTE | 2017-09-07 11:35 | CARD ---
APPROVED REPORT EXAM: Two-dimensional and M-mode echocardiogram with Doppler and color Doppler. Other Information Quality : AverageRhythm : NSR 2D DIMENSIONS IVSd1.18 (0.7-1.1cm)LVDd3.72 (3.9-5.9cm) LVOT Diameter1.99 (1.8-2.4cm)PWd1.33 (0.7-1.1cm) IVSs1.39 (0.8-1.2cm)LVDs2.82 (2.5-4.0cm) FS (%) 24.4 %PWs1.17 (0.8-1.2cm) M-Mode DIMENSIONS Left Atrium (MM)4.70 (2.5-4.0cm)IVSd1.20 (0.7-1.1cm) Aortic Root2.83 (2.2-3.7cm)LVDd5.13 (4.0-5.6cm) Aortic Cusp Exc.1.77 (1.5-2.0cm)PWd1.30 (0.7-1.1cm) FS (%) 31 %LVDs3.57 (2.0-3.8cm) Mitral Valve MV E Saviocrn26.4cm/sMV E Peak Gr.75mmHgMV DECEL [id number] MV A Mbdztjeo82.1cm/sMV JKF97mfR/A ratio0.7 MVA (PHT)2.65cm2 TDI Lateral E' Peak V8.56cm/sE/Lateral E'7.2E/Medial E'0.0 Pulmonary Valve PV Peak Puknvuye13.9cm/s Tricuspid Valve TR Peak [id number]/sTR Peak Gr.17mmHg LEFT VENTRICLE The left ventricle is normal size. There is normal left ventricular wall thickness. The left ventricular function is normal. The left ventricular ejection fraction is within the normal range. The Ejection Fraction is 55-60%. There is normal LV segmental wall motion. The left ventricular diastolic function is normal. RIGHT VENTRICLE The right ventricle is normal size. The right ventricular systolic function is normal. ATRIA The left atrium size is normal. The right atrium size is normal. AORTIC VALVE The aortic valve is normal in structure. No aortic regurgitation is present. There is no aortic valvular stenosis. MITRAL VALVE The mitral valve is normal in structure. There is no mitral valve stenosis. There is no mitral valve regurgitation noted. TRICUSPID VALVE The tricuspid valve is normal in structure. There is no tricuspid valve regurgitation noted. There is no tricuspid valve stenosis. PULMONIC VALVE The pulmonary valve is normal in structure. There is no pulmonic valvular regurgitation. GREAT VESSELS The aortic root is normal in size. The IVC is normal in size and collapses >50% with inspiration. PERICARDIAL EFFUSION The pericardium appears normal. <Conclusion> The left ventricle is normal size. The left ventricular function is normal. The left ventricular ejection fraction is within the normal range. The Ejection Fraction is 55-60%.
== END 2017-09-07 11:42 | disposition home or self-care (01) | DRG 79 ==
LOC: H.ER 21:42 → H.ERHOLD 23:41 → OBSVTOIN 09-05 08:48 → H.TEL 09-05 10:12
PROVIDERS: ADMIT Family Medicine; ATTEND Family Medicine
DX: I67.4 Hypertensive encephalopathy (principal); E83.42 Hypomagnesemia; G62.89 Other specified polyneuropathies; I48.91 Unspecified atrial fibrillation; F03.90 Unspecified dementia, unspecified severity, without behavioral disturbance, psychotic disturbance, mood disturbance, and anxiety; E87.6 Hypokalemia; J45.909 Unspecified asthma, uncomplicated; K29.70 Gastritis, unspecified, without bleeding; M17.11 Unilateral primary osteoarthritis, right knee; R74.8 Abnormal levels of other serum enzymes; Z91.14 Patient's other noncompliance with medication regimen

== ENCOUNTER 2017-09-21 15:46 | Inpatient (IN) | payer MEDICARE ==
[2017-09-21 15:46] VITALS: BMI 25.7
[2017-09-21] MEDS ORDERED: Labetalol 5 mg/ml Inj 20ML IVP STA ×2 (16:52→17:49)
[2017-09-21] MEDS ORDERED: Labetalol 5mg/ml (4ml) ONE ×2 (17:06→17:55)
--- NOTE | 2017-09-21 17:06 | ED PDOC ---
HPI: Headache Chief Complaint (Nursing): GI Problem Chief Complaint (Provider): dizziness History Per: Patient History/Exam Limitations: no limitations Additional Complaint(s): 76 yo ,f, PMhx/o HTN, A fib, Dementia presents to Ed c/o dizziness for the last 3 days, with spinning room sensation, intermittent, associated with 1 non- bloddy vomiting today in the morning, photophobia, frontal headache 6/10, started in the morning, constant. Patient also reports productive cough for the last 3 days with occs greenish expectoration. She denies nausea, chest pain, sOB , weakness, numbness, slurred speech, confusion. Patient reports that she took her BP meds in the morning and maybe she vomited. Pt has dementia and lives with a daughter who gives her medicine before living to work. patient was recent discharged but did not fo for f/u with Dr Bustillo On evalation patient AAOx3, BP : 227/99. PMD: DR Bustillo Past Medical History Vital Signs: Last Vital Signs Temp 98.1 F 09/21/17 15:53 Pulse 63 09/21/17 15:53 Resp 16 09/21/17 15:53 BP 195/102 H 09/21/17 15:53 Pulse Ox 100 09/21/17 15:53 - Medical History PMH: Arthritis, Asthma, Atrial Fibrillation, Dementia, Gastritis, Gall Bladder Disease, HTN Denies: Chronic Kidney Disease - Surgical History Surgical History: Cholecystectomy - Family History Family History: States: Unknown Family Hx - Home Medications Home Medications: Ambulatory Orders Medication Instructions Recorded Albuterol HFA [Ventolin HFA 90 2 puff IH Q6H PRN 09/21/17 mcg/actuation (8 g)] Carvedilol [Coreg] 12.5 mg PO DAILY 09/21/17 Esomeprazole Magnesium [Nexium] 40 mg PO DAILY 09/21/17 Memantine HCl/Donepezil HCl 1 cap PO HS 09/21/17 [Namzaric 28 mg-10 mg Capsule] Valsartan [Diovan] 160 mg PO DAILY 09/21/17 - Allergies Allergies/Adverse Reactions: Allergies Allergy/AdvReac Type Severity Reaction Status Date / Time adhesive tape Allergy RASH Verified 09/04/17 21:46 Review of Systems Constitutional: Negative for: Fever Cardiovascular: Negative for: Chest Pain Respiratory: Positive for: Cough. Negative for: Shortness of Breath Gastrointestinal: Negative for: Nausea, Vomiting Neurological: Positive for: Headache, Dizziness. Negative for: Weakness, Numbness Physical Exam - Physical Exam Appears: Positive for: Non-toxic Head Exam: Positive for: ATRAUMATIC, NORMOCEPHALIC Skin: Positive for: Normal Color Eye Exam: Positive for: EOMI, PERRL, Nystagmus Neck: Positive for: Normal, Supple Cardiovascular/Chest: Positive for: Regular Rate, Rhythm. Negative for: Murmur Respiratory: Positive for: Normal Breath Sounds. Negative for: Crackles, Rales , Rhonchi Gastrointestinal/Abdominal: Positive for: Bowel Sounds, Soft. Negative for: Tenderness, Distended, Guarding, Rebound Extremity: Negative for: Tenderness, Pedal Edema, Calf Tenderness Neurologic/Psych: Positive for: Alert, Oriented, Gait (not explored( vertigo)). Negative for: Motor/Sensory Deficits, Aphasia, Facial Droop - Laboratory Results Result Diagrams: 09/21/17 17:08 09/21/17 17:08 - ECG O2 Sat by Pulse Oximetry: 100 Medical Decision Making Medical Decision Makin:45 Initial impression Hypertensive Urgency Differential Hypertensive encephalopathy. Subarachnoid hemorrhage Plan CBC, CMP, troponin, EKG, CXR Labetalol 20 mg IV x 1 dose BP: 227/99 after first dose. BP manual : 195/90 second dose of labetalol given Metoprolol tartrate 25 mg PO Patient will be admitted Family resident team notified Dr Barkley Disposition - Disposition Forms: [employer] (Azerbaijani)
[2017-09-21 17:31] LABS: BASO % 0.5 % (0.0-2.0); EOS # 0.1 K/uL (0.0-0.7); EOS % 1.9 % (0.0-4.0); HEMOGLOBIN 13.7 g/dL (12.0-16.0); LYMPH # 1.4 K/uL (1.0-4.3); LYMPH % 23.9 % (20.0-40.0); MEAN CORPUSCULAR HEMOGLOBIN 30.6 pg (27.0-31.0); MEAN CORPUSCULAR HGB CONC 33.3 g/dL (33.0-37.0); MEAN PLATELET VOLUME 11.4 fl (7.2-11.7); MONO # 0.4 K/uL (0.0-0.8); MONO % 6.1 % (0.0-10.0); NEUT # 3.9 K/uL (1.8-7.0); NEUT % 67.6 % (50.0-75.0); NRBC % 0.3 % (0.0-0.0); RBC 4.49 Mil/uL (3.80-5.20); RED CELL DISTRIBUTION WIDTH 13.7 % (11.5-14.5); WHITE BLOOD COUNT 5.8 K/uL (4.8-10.8)
[2017-09-21 17:35] LABS: ALB/GLOB RATIO 1.3 (1.0-2.1); ALBUMIN 4.4 g/dL (3.5-5.0); ALT/SGPT 28 U/L (9-52); AST/SGOT 23 U/L (14-36); BLOOD UREA NITROGEN 19 mg/dl (7-17); GFR AFRICAN-AMERICAN > 60; GFR NON-AFRICAN AMERICAN > 60
--- NOTE | 2017-09-21 17:47 | RAD ---
PROCEDURE: CHEST RADIOGRAPH, 1 VIEW HISTORY: Cough COMPARISON: 12/17/2017. FINDINGS: LUNGS: The lungs are well inflated. There is mild pulmonary venous congestion. There is subsegmental atelectasis/scarring in the right lower lobe PLEURA: No pneumothorax or pleural fluid seen. CARDIOVASCULAR: There is mild cardiomegaly. OSSEOUS STRUCTURES: No significant abnormalities. VISUALIZED UPPER ABDOMEN: Normal. OTHER FINDINGS: None. IMPRESSION: No active pulmonary disease. Mild cardiomegaly and pulmonary venous congestion.
--- NOTE | 2017-09-21 18:31 | CT ---
PROCEDURE: CT HEAD WITHOUT CONTRAST. HISTORY: dizziness,headache, nystagmus horizontal COMPARISON: 09/04/2017. TECHNIQUE: Axial computed tomography images were obtained through the head/brain without intravenous contrast. Radiation dose: Total exam DLP = 863.04 mGy-cm. This CT exam was performed using one or more of the following dose reduction techniques: Automated exposure control, adjustment of the mA and/or kV according to patient size, and/or use of iterative reconstruction technique. FINDINGS: HEMORRHAGE: No intracranial hemorrhage. BRAIN: [place]-white matter differentiation is preserved. There is no mass, mass effect or abnormal extra-axial fluid collection.There are coarse atherosclerotic calcifications in the cavernous carotid arteries. VENTRICLES: There is mild age-related global parenchymal volume loss and proportionate enlargement of the ventricles and cortical sulci. CALVARIUM: The skull base and calvarium are normal. PARANASAL SINUSES: Predominantly clear. MASTOID AIR CELLS: Predominantly clear. OTHER FINDINGS: None. IMPRESSION: No acute intracranial abnormality. Mild age-related global parenchymal volume loss.
[2017-09-21] MEDS ORDERED: Albuterol HFA 90 mcg/actuation (8 g) IH PRN (18:32)
--- NOTE | 2017-09-21 18:48 | CP.PCM.HP ---
<Eddy Barkley - Last Filed: 09/21/17 22:12> History of Present Illness - History of Present Illness History of Present Illness: 76 YO w/ PMH of Afib, Dementia presents to the ED for dizziness over the last 3 days, state she has been feeling the room is spinning. Patient states she tried to take her medication this morning however she had an eppisode of Non bloody non billious vomiting shortly after. Denies fever, chills, neck stiffness. - Patient also complains of a productive cough over the last 3 days. - Patient lives with her daughter which usually gives her the meds before going to work however, today patient had the episode of vomiting after taking the medication. PMD: Dr Bustillo PMH: HTN, Afib, Gastritis PSH: Cholecystectomy Allergies: NKDA Meds: Coreg 12.5mg PO daily Valsartan 160mg PO daily Nexium 40mg PO daily Albuterol inhaler prn Memantine HCL Social: Denies smoking, etoh, drugs Ed Course VS: 195/102 HR: 63 Labs: CBC, CMP normal, Magnesium low: M.2 ,Troponin x1 neg X Ray: No active pulm disease, Imaging: CT Head: No definite acute intracranial abnormality.Brain: Mild age related global parenchymal volume loss Labetolol 20 mg IVP x 2 given. Metoprolol 25mg once, clonadine .1mg. Blood pressure s.p meds : 150/72 Present on Admission - Present on Admission Any Indicators Present on Admission: No Past Patient History - Past Medical History & Family History Past Medical History?: Yes - Past Social History Smoking Status: Never Smoked - CARDIAC Hx Atrial Fibrillation: Yes Hx Hypertension: Yes - PULMONARY Hx Asthma: Yes - NEUROLOGICAL Hx Dementia: Yes - HEENT Hx HEENT Problems: No - RENAL Hx Chronic Kidney Disease: No - ENDOCRINE/METABOLIC Hx Endocrine Disorders: No - HEMATOLOGICAL/ONCOLOGICAL Hx Blood Disorders: No Hx AIDS: No - INTEGUMENTARY Hx Dermatological Problems: No - MUSCULOSKELETAL/RHEUMATOLOGICAL Hx Arthritis: Yes - GASTROINTESTINAL Hx Gall Bladder Disease: Yes Hx Gastritis: Yes - GENITOURINARY/GYNECOLOGICAL Hx Genitourinary Disorders: No - PSYCHIATRIC Hx Psychophysiologic Disorder: No Hx Substance Use: No - SURGICAL HISTORY Hx Cholecystectomy: Yes - ANESTHESIA Hx Anesthesia: Yes Hx Anesthesia Reactions: No Hx Malignant Hyperthermia: No Meds Allergies/Adverse Reactions: Allergies Allergy/AdvReac Type Severity Reaction Status Date / Time adhesive tape Allergy RASH Verified 09/04/17 21:46 Physical Exam - Constitutional Appears: No Acute Distress - Head Exam Head Exam: NORMAL INSPECTION - Eye Exam Eye Exam: Normal appearance - Respiratory Exam Respiratory Exam: Clear to Auscultation Bilateral, NORMAL BREATHING PATTERN. absent: Rhonchi, Wheezes - Cardiovascular Exam Cardiovascular Exam: REGULAR RHYTHM, +S1, +S2. absent: Systolic Murmur - GI/Abdominal Exam GI & Abdominal Exam: Normal Bowel Sounds, Soft. absent: Tenderness - Extremities Exam Extremities exam: Positive for: normal inspection - Neurological Exam Neurological exam: Alert, CN II-XII Intact, Oriented x3 - Psychiatric Exam Psychiatric exam: Normal Affect, Normal Mood - Skin Skin Exam: Normal Color, Warm Results - Vital Signs Recent Vital Signs: Last Vital Signs Temp 98.1 F 09/21/17 15:53 Pulse 64 09/21/17 18:29 Resp 20 09/21/17 18:24 BP 196/80 H 09/21/17 18:29 Pulse Ox 98 09/21/17 18:24 - Labs Result Diagrams: 09/21/17 17:08 09/21/17 17:08 Labs: Laboratory Results - last 24 hr 09/21/17 09/21/17 17:08 17:08 WBC 5.8 RBC 4.49 Hgb 13.7 D Hct 41.3 MCV 92.0 MCH 30.6 MCHC 33.3 RDW 13.7 Plt Count 144 MPV 11.4 Neut % (Auto) 67.6 Lymph % (Auto) 23.9 [place] % (Auto) 6.1 Eos % (Auto) 1.9 Baso % (Auto) 0.5 Neut # (Auto) 3.9 Lymph # (Auto) 1.4 [place] # (Auto) 0.4 Eos # (Auto) 0.1 Baso # (Auto) 0.0 Sodium 138 Potassium 3.8 Chloride 99 Carbon Dioxide 27 Anion Gap 16 BUN 19 H Creatinine 0.7 Est GFR ( Amer) > 60 Est GFR (Non-Af Amer) > 60 Random Glucose 115 H Calcium 10.0 Total Bilirubin 0.7 AST 23 ALT 28 Alkaline Phosphatase 65 Troponin I < 0.0120 Total Protein 7.8 Albumin 4.4 Globulin 3.4 Albumin/Globulin Ratio 1.3 Assessment & Plan - Assessment and Plan (Free Text) Assessment: 75 yo ,f, PMhx/o HTN, A fib, Dementia admitted for Obs for Hypertensive Urgency Assessment/Plan 1) Hypertensive Urgency -may be secondary to pt with dementia who no compliance with meds. -Labetalol 20 mg IV x2, metoprol, and clonadine .1 given in ER - C/W telemetry -c/w home medications 2) Dizziness -secondary to uncontrolled medication -CT Head w/o contrast no intracranial hemorrhage. - no motor focalization 3) Hx/o A Fib - Controlled - continue home meds 4) Dementia without behavioral changes -Ct head showed brain atrophy - Continue Memantine 5) Hypomagnessium - 1.2 - 2 grams of magnesium ordered - F/U with morning Mg 6) DVT Prophylaxis -Lovenox 40 mg sc daily <Hal Bustillo - Last Filed: 09/22/17 07:05> Results - Vital Signs Recent Vital Signs: Last Vital Signs Temp 97.6 F 09/22/17 05:00 Pulse 51 L 09/22/17 05:00 Resp 16 09/22/17 05:00 BP 150/67 09/22/17 05:00 Pulse Ox 95 09/22/17 05:00 - Labs Result Diagrams: 09/22/17 04:28 09/22/17 04:28 Labs: Laboratory Results - last 24 hr 09/21/17 09/21/17 09/21/17 15:00 17:08 17:08 WBC 5.8 RBC 4.49 Hgb 13.7 D Hct 41.3 MCV 92.0 MCH 30.6 MCHC 33.3 RDW 13.7 Plt Count 144 MPV 11.4 Neut % (Auto) 67.6 Lymph % (Auto) 23.9 [place] % (Auto) 6.1 Eos % (Auto) 1.9 Baso % (Auto) 0.5 Neut # (Auto) 3.9 Lymph # (Auto) 1.4 [place] # (Auto) 0.4 Eos # (Auto) 0.1 Baso # (Auto) 0.0 Sodium 138 Potassium 3.8 Chloride 99 Carbon Dioxide 27 Anion Gap 16 BUN 19 H Creatinine 0.7 Est GFR ( Amer) > 60 Est GFR (Non-Af Amer) > 60 Random Glucose 115 H Calcium 10.0 Phosphorus 3.8 Magnesium 1.2 L Total Bilirubin 0.7 AST 23 ALT 28 Alkaline Phosphatase 65 Troponin I < 0.0120 Total Protein 7.8 Albumin 4.4 Globulin 3.4 Albumin/Globulin Ratio 1.3 09/22/17 09/22/17 04:28 04:28 WBC 5.5 RBC 3.46 L Hgb 10.9 L D Hct 31.7 L MCV 91.7 MCH 31.4 H MCHC 34.3 RDW 13.7 Plt Count 154 MPV 11.8 H Neut % (Auto) 55.3 Lymph % (Auto) 32.5 [place] % (Auto) 9.5 Eos % (Auto) 2.4 Baso % (Auto) 0.3 Neut # (Auto) 3.0 Lymph # (Auto) 1.8 [place] # (Auto) 0.5 Eos # (Auto) 0.1 Baso # (Auto) 0.0 Sodium 137 Potassium 3.9 Chloride 99 Carbon Dioxide 28 Anion Gap 14 BUN 18 H Creatinine 0.7 Est GFR ( Amer) > 60 Est GFR (Non-Af Amer) > 60 Random Glucose 91 Calcium 9.1 Phosphorus Magnesium 1.8 Total Bilirubin 0.6 AST 28 ALT 22 Alkaline Phosphatase 47 Troponin I Total Protein 6.4 Albumin 3.4 L D Globulin 3.0 Albumin/Globulin Ratio 1.1 Attending/Attestation - Attestation I have personally seen and examined this patient.: Yes I have fully participated in the care of the patient.: Yes I have reviewed all pertinent clinical information: Yes
[2017-09-21 19:34] LABS: MAGNESIUM 1.2 MG/DL (1.6-2.3)
[2017-09-21] MEDS ORDERED: Magnesium Sulfate 2 gm/50 ml 2 GM/50 ML BAG IVPB ONE (19:43)
[2017-09-21] MEDS ORDERED: Magnesium Sulfate 2 gm/50 ml 2 GM/50 ML BAG ONE (19:54)
[2017-09-21] MEDS ORDERED: Patient's Own Med (Memantine Hcl/Donepezil Hcl [Namzaric 28 Mg-10 Mg Capsule] 1 CAP) PO SCH (22:00)
[2017-09-22] MEDS ORDERED: Sodium Chloride 0.9% 1,000 ML IV SCH (01:45)
[2017-09-22 06:02] LABS: BASO % 0.3 % (0.0-2.0); EOS # 0.1 K/uL (0.0-0.7); EOS % 2.4 % (0.0-4.0); HEMOGLOBIN 10.9 g/dL (12.0-16.0); LYMPH # 1.8 K/uL (1.0-4.3); LYMPH % 32.5 % (20.0-40.0); MEAN CELL VOLUME 91.7 fl (81.0-99.0); MEAN CORPUSCULAR HEMOGLOBIN 31.4 pg (27.0-31.0); MEAN CORPUSCULAR HGB CONC 34.3 g/dL (33.0-37.0); MEAN PLATELET VOLUME 11.8 fl (7.2-11.7); MONO # 0.5 K/uL (0.0-0.8); MONO % 9.5 % (0.0-10.0); NEUT % 55.3 % (50.0-75.0); NRBC % 0.1 % (0.0-0.0); RBC 3.46 Mil/uL (3.80-5.20); RED CELL DISTRIBUTION WIDTH 13.7 % (11.5-14.5); WHITE BLOOD COUNT 5.5 K/uL (4.8-10.8)
[2017-09-22 06:37] LABS: ALB/GLOB RATIO 1.1 (1.0-2.1); ALBUMIN 3.4 g/dL (3.5-5.0); ALT/SGPT 22 U/L (9-52); AST/SGOT 28 U/L (14-36); BLOOD UREA NITROGEN 18 mg/dl (7-17); CALCIUM 9.1 mg/dL (8.4-10.2); GFR AFRICAN-AMERICAN > 60; GFR NON-AFRICAN AMERICAN > 60; MAGNESIUM 1.8 MG/DL (1.6-2.3)
--- NOTE | 2017-09-22 08:52 | CP.PCM.PN ---
<Roderick Parks - Last Filed: 09/22/17 16:34> Subjective - Date & Time of Evaluation Date of Evaluation: 09/22/17 Time of Evaluation: 07:35 - Subjective Subjective: The patient seen and examined at bedside this morning. There are no acute events overnight, NAD. The patient has no complaints and denies headaches, dizziness, chest pain, SOB, abdominal pain, nausea, vomiting, diarrhea, or fever. Objective - Vital Signs/Intake and Output Vital Signs (last 24 hours): Temp Pulse Resp BP Pulse Ox 98.3 F 56 L 20 152/77 H 98 09/22/17 08:00 09/22/17 08:00 09/22/17 08:00 09/22/17 08:00 09/22/17 08:00 - Medications Medications: Current Medications Albuterol (Ventolin Hfa 90 Mcg/Actuation (8 G)) 2 puff IH Q6H PRN PRN Reason: Shortness of Breath Carvedilol (Coreg) 12.5 mg PO DAILY [facility] Enoxaparin Sodium (Lovenox) 40 mg SC DAILY [facility] PRN Reason: Protocol Home Med (Memantine Hcl/Donepezil Hcl [Namzaric 28 Mg-10 Mg Capsule]) 1 cap PO HS [facility] Pantoprazole Sodium (Protonix Ec Tab) 40 mg PO DAILY [facility] Valsartan (Diovan) 160 mg PO DAILY [facility] - Labs Labs: 09/22/17 04:28 09/22/17 04:28 - Constitutional Appears: No Acute Distress - Head Exam Head Exam: ATRAUMATIC, NORMAL INSPECTION, NORMOCEPHALIC - Eye Exam Eye Exam: Normal appearance - ENT Exam ENT Exam: Mucous Membranes Moist - Respiratory Exam Respiratory Exam: Clear to Ausculation Bilateral, NORMAL BREATHING PATTERN. absent: Decreased Breath Sounds, Rales, Rhonchi, Wheezes, Respiratory Distress - Cardiovascular Exam Cardiovascular Exam: REGULAR RHYTHM. absent: Tachycardia - GI/Abdominal Exam GI & Abdominal Exam: Soft, Normal Bowel Sounds. absent: Tenderness - Extremities Exam Extremities Exam: Normal Inspection. absent: Calf Tenderness, Pedal Edema - Neurological Exam Neurological Exam: Alert, Awake - Skin Skin Exam: Dry, Normal Color, Warm Assessment and Plan - Assessment and Plan (Free Text) Assessment: 75 y/o woman w/ pmh of HTN, A fib, Dementia admitted for Hypertensive urgency Plan: 1. Hypertensive Urgency - may be secondary to pt with dementia w/ poor adherence with meds. - Labetalol 20 mg IV x2, metoprol, and clonadine .1 given in ER - C/W telemetry - c/w home medications: valsartan 160 mg PO daily, carvedilol 12.5 mg PO daily - BP currently stable and controlled 152/82 mm Hg 2. Dizziness - secondary to uncontrolled medication - CT Head w/o contrast: no intracranial hemorrhage. - no motor focalization 3. Hx/o A Fib - Controlled - c/w home meds: carvedilol 12.5 mg PO daily 4. Dementia without behavioral changes - CT head w/o: showed mild age-related global parenchymal volume loss - Continue Memantine 1 cap PO HS 5. Hypomagnessium - improved - Mg+ 1.8 - given MgSO4 2 gm IV 6. Prophylactic measures - DVT: Lovenox 40 mg SC daily <Hal Bustillo - Last Filed: 09/25/17 06:49> Objective - Vital Signs/Intake and Output Vital Signs (last 24 hours): Temp Pulse Resp BP Pulse Ox 97.7 F 55 L 18 164/75 H 99 09/25/17 05:03 09/25/17 05:03 09/25/17 05:03 09/25/17 05:03 09/25/17 05:03 - Medications Medications: Current Medications Albuterol (Ventolin Hfa 90 Mcg/Actuation (8 G)) 2 puff IH Q6H PRN PRN Reason: Shortness of Breath Carvedilol (Coreg) 12.5 mg PO DAILY [facility] Last Admin: 09/24/17 08:46 Dose: 12.5 mg Enoxaparin Sodium (Lovenox) 40 mg SC DAILY [facility] PRN Reason: Protocol Last Admin: 09/24/17 08:47 Dose: 40 mg Home Med (Memantine Hcl/Donepezil Hcl [Namzaric 28 Mg-10 Mg Capsule]) 1 cap PO HS [facility] Lactic Acid (Lac-Hydrin 12% Lotion (225 G)) 1 applic TOP TID [facility] Last Admin: 09/24/17 16:48 Dose: 1 applic Pantoprazole Sodium (Protonix Ec Tab) 40 mg PO DAILY [facility] Last Admin: 09/24/17 08:47 Dose: 40 mg Valsartan (Diovan) 160 mg PO DAILY [facility] Last Admin: 09/24/17 08:47 Dose: 160 mg - Labs Labs: 09/22/17 04:28 09/22/17 04:28 Attending/Attestation - Attestation I have personally seen and examined this patient.: Yes I have fully participated in the care of the patient.: Yes I have reviewed all pertinent clinical information, including history, physical exam and plan: Yes
[2017-09-22] MEDS: Pantoprazole 40 mg EC Tab PO SCH (09:02)
[2017-09-22] MEDS: Enoxaparin 40 mg Syringe SC SCH (09:02)
--- NOTE | 2017-09-22 23:46 | CARD ---
APPROVED REPORT EKG Measurement Heart [id number] <Conclusion> Sinus bradycardia with premature atrial complexes Nonspecific ST abnormality Abnormal ECG
[2017-09-23] MEDS: Pantoprazole 40 mg EC Tab PO SCH (08:42)
[2017-09-23] MEDS: Enoxaparin 40 mg Syringe SC SCH (08:42)
--- NOTE | 2017-09-23 09:41 | CP.PCM.PN ---
Subjective - Date & Time of Evaluation Date of Evaluation: 09/23/17 Time of Evaluation: 09:15 - Subjective Subjective: The patient seen and examined at bedside this morning. There are no acute events overnight, NAD. The patient complained of pruritus on areas where there were adhesives but had relief w/ cortisone cream. The patient has no complaints and denies headaches, dizziness, chest pain, SOB, abdominal pain, nausea, vomiting, diarrhea, or fever. Objective - Vital Signs/Intake and Output Vital Signs (last 24 hours): Temp Pulse Resp BP Pulse Ox 98.2 F 61 20 149/70 97 09/23/17 08:00 09/23/17 08:43 09/23/17 08:00 09/23/17 08:43 09/23/17 08:00 - Medications Medications: Current Medications Albuterol (Ventolin Hfa 90 Mcg/Actuation (8 G)) 2 puff IH Q6H PRN PRN Reason: Shortness of Breath Carvedilol (Coreg) 12.5 mg PO DAILY [facility] Last Admin: 09/23/17 08:43 Dose: 12.5 mg Enoxaparin Sodium (Lovenox) 40 mg SC DAILY [facility] PRN Reason: Protocol Last Admin: 09/23/17 08:42 Dose: 40 mg Home Med (Memantine Hcl/Donepezil Hcl [Namzaric 28 Mg-10 Mg Capsule]) 1 cap PO [facility] Pantoprazole Sodium (Protonix Ec Tab) 40 mg PO DAILY [facility] Last Admin: 09/23/17 08:42 Dose: 40 mg Valsartan (Diovan) 160 mg PO DAILY [facility] Last Admin: 09/23/17 08:43 Dose: 160 mg - Labs Labs: 09/22/17 04:28 09/22/17 04:28 - Constitutional Appears: No Acute Distress - Head Exam Head Exam: ATRAUMATIC, NORMAL INSPECTION, NORMOCEPHALIC - Eye Exam Eye Exam: Normal appearance - ENT Exam ENT Exam: Mucous Membranes Moist - Respiratory Exam Respiratory Exam: Clear to Ausculation Bilateral, NORMAL BREATHING PATTERN. absent: Rales, Rhonchi, Wheezes, Respiratory Distress - Cardiovascular Exam Cardiovascular Exam: REGULAR RHYTHM. absent: Tachycardia - GI/Abdominal Exam GI & Abdominal Exam: Soft, Normal Bowel Sounds. absent: Distended, Tenderness - Extremities Exam Extremities Exam: absent: Calf Tenderness, Pedal Edema - Neurological Exam Neurological Exam: Alert, Awake - Skin Skin Exam: Dry, Intact, Normal Color, Warm. absent: Rash Assessment and Plan - Assessment and Plan (Free Text) Assessment: 75 y/o woman w/ pmh of HTN, A fib, Dementia admitted for Hypertensive urgency Plan: 1. Hypertensive Urgency - may be secondary to pt with dementia w/ poor adherence with meds. - Labetalol 20 mg IV x2, metoprol, and clonadine .1 given in ER - C/W telemetry - c/w home medications: valsartan 160 mg PO daily, carvedilol 12.5 mg PO daily - BP currently stable and controlled 149/70 mm Hg 2. Pruritus - patient complained of pruritus at locations with adhesive tape - mild relief w/ benadryl - greater improvement w/ cortisone cream - start lac hydrin lotion for dry skin 3. Dizziness - improved - secondary to uncontrolled medication - CT Head w/o contrast: no intracranial hemorrhage. - no motor focalization 4. Hx/o A Fib - Controlled, currently sinus rhythm - c/w home meds: carvedilol 12.5 mg PO daily 5. Dementia without behavioral changes - CT head w/o: showed mild age-related global parenchymal volume loss - Continue Memantine 1 cap PO HS 6. Hypomagnessium - improved - Mg+ 1.8 - given MgSO4 2 gm IV 7. Prophylactic measures - DVT: Lovenox 40 mg SC daily
[2017-09-24] MEDS: Pantoprazole 40 mg EC Tab PO SCH (08:47)
[2017-09-24] MEDS: Enoxaparin 40 mg Syringe SC SCH (08:47)
--- NOTE | 2017-09-24 11:37 | CP.PCM.PN ---
Subjective - Date & Time of Evaluation Date of Evaluation: 09/24/17 Time of Evaluation: 09:15 - Subjective Subjective: Patient seen and examined at bedside, sitting in chair. Awake, alert, cooperative with exam. Tolerating PO diet. Denies chest pain, palpitations, weakness or SOB. Objective - Vital Signs/Intake and Output Vital Signs (last 24 hours): Temp Pulse Resp BP Pulse Ox 98.3 F 67 18 154/66 H 97 09/24/17 08:29 09/24/17 08:46 09/24/17 08:29 09/24/17 08:46 09/24/17 08:29 - Medications Medications: Current Medications Albuterol (Ventolin Hfa 90 Mcg/Actuation (8 G)) 2 puff IH Q6H PRN PRN Reason: Shortness of Breath Carvedilol (Coreg) 12.5 mg PO DAILY [facility] Last Admin: 09/24/17 08:46 Dose: 12.5 mg Enoxaparin Sodium (Lovenox) 40 mg SC DAILY [facility] PRN Reason: Protocol Last Admin: 09/24/17 08:47 Dose: 40 mg Home Med (Memantine Hcl/Donepezil Hcl [Namzaric 28 Mg-10 Mg Capsule]) 1 cap PO HS [facility] Lactic Acid (Lac-Hydrin 12% Lotion (225 G)) 1 applic TOP TID [facility] Last Admin: 09/24/17 08:48 Dose: 1 applic Pantoprazole Sodium (Protonix Ec Tab) 40 mg PO DAILY [facility] Last Admin: 09/24/17 08:47 Dose: 40 mg Valsartan (Diovan) 160 mg PO DAILY [facility] Last Admin: 09/24/17 08:47 Dose: 160 mg - Labs Labs: 09/22/17 04:28 09/22/17 04:28 - Constitutional Appears: No Acute Distress - Head Exam Head Exam: ATRAUMATIC, NORMOCEPHALIC - Eye Exam Eye Exam: EOMI - ENT Exam ENT Exam: Mucous Membranes Moist - Neck Exam Neck Exam: Full ROM - Respiratory Exam Respiratory Exam: Clear to Ausculation Bilateral, NORMAL BREATHING PATTERN - Cardiovascular Exam Cardiovascular Exam: REGULAR RHYTHM - GI/Abdominal Exam GI & Abdominal Exam: Soft, Normal Bowel Sounds. absent: Distended, Tenderness - Extremities Exam Extremities Exam: Full ROM. absent: Pedal Edema - Neurological Exam Neurological Exam: Alert, Awake, CN II-XII Intact - Psychiatric Exam Psychiatric exam: Normal Affect, Normal Mood - Skin Skin Exam: Dry, Intact, Normal Color, Warm Assessment and Plan - Assessment and Plan (Free Text) Assessment: 76 yr old F admitted for hypertensive urgency. Patient has uncontrolled HTN, A- fib, Dementia. Plan: 1. Hypertensive Urgency -acute, improved - may be secondary to dementia with poor adherence to home medication - s/p Labetalol 20 mg IV x2, metoprol, and clonadine .1 given in ER - continue home medications: valsartan 160 mg PO daily, carvedilol 12.5 mg PO daily - BP uncontrolled 154/66 mm Hg 2. Pruritus-improved -acute, improved - patient complained of pruritus at locations with adhesive tape - mild relief with benadryl and cortisone cream - continue lac-hydrin lotion for dry skin 3. Dizziness-improved -acute, improved - likely secondary to uncontrolled hypertension - CT Head w/o contrast: no intracranial hemorrhage. - no motor focalization 4. Hx/o A Fib - chronic, rate Controlled, currently sinus rhythm - continue home meds: carvedilol 12.5 mg PO daily 5. Dementia without behavioral changes -chronic, stable - CT head w/o: showed mild age-related global parenchymal volume loss - Continue Memantine 1 cap PO HS 6. Prophylactic measures - DVT: Lovenox 40 mg SC daily
[2017-09-25 00:01] VITALS: RESP 18
[2017-09-25] MEDS ORDERED: DiphenhydrAMINE 50 mg/ml Inj IVP ONE (01:05)
[2017-09-25 08:01] VITALS: BP 164/81; TEMP 98.1; O2SAT 96
[2017-09-25] MEDS: Pantoprazole 40 mg EC Tab PO SCH (09:29)
[2017-09-25] MEDS: Enoxaparin 40 mg Syringe SC SCH (09:29)
[2017-09-25 09:30] VITALS: PULSE 60
--- NOTE | 2017-09-25 10:28 | CP.PCM.DIS ---
<Roderick Parks - Last Filed: 09/25/17 11:54> Provider - Provider Date of Admission: 09/21/17 17:41 Attending physician: Hal Bustillo MD Time Spent in preparation of Discharge (in minutes): 15 Diagnosis - Discharge Diagnosis (1) Hypertensive urgency Status: Acute Hospital Course - Lab Results Lab Results: Most Recent Lab Values WBC 5.5 K/uL (4.8-10.8) 09/22/17 04:28 RBC 3.46 Mil/uL (3.80-5.20) L 09/22/17 04:28 Hgb 10.9 g/dL (12.0-16.0) L D 09/22/17 04:28 Hct 31.7 % (34.0-47.0) L 09/22/17 04:28 MCV 91.7 fl (81.0-99.0) 09/22/17 04:28 MCH 31.4 pg (27.0-31.0) H 09/22/17 04:28 MCHC 34.3 g/dL (33.0-37.0) 09/22/17 04:28 RDW 13.7 % (11.5-14.5) 09/22/17 04:28 Plt Count 154 K/uL (130-400) 09/22/17 04:28 MPV 11.8 fl (7.2-11.7) H 09/22/17 04:28 Neut % (Auto) 55.3 % (50.0-75.0) 09/22/17 04:28 Lymph % (Auto) 32.5 % (20.0-40.0) 09/22/17 04:28 [place]key % (Auto) 9.5 % (0.0-10.0) 09/22/17 04:28 Eos % (Auto) 2.4 % (0.0-4.0) 09/22/17 04:28 Baso % (Auto) 0.3 % (0.0-2.0) 09/22/17 04:28 Neut # (Auto) 3.0 K/uL (1.8-7.0) 09/22/17 04:28 Lymph # (Auto) 1.8 K/uL (1.0-4.3) 09/22/17 04:28 Sharkey # (Auto) 0.5 K/uL (0.0-0.8) 09/22/17 04:28 Eos # (Auto) 0.1 K/uL (0.0-0.7) 09/22/17 04:28 Baso # (Auto) 0.0 K/uL (0.0-0.2) 09/22/17 04:28 Sodium 137 mmol/l (132-148) 09/22/17 04:28 Potassium 3.9 MMOL/L (3.6-5.0) 09/22/17 04:28 Chloride 99 mmol/L (98-107) 09/22/17 04:28 Carbon Dioxide 28 mmol/L (22-30) 09/22/17 04:28 Anion Gap 14 (10-20) 09/22/17 04:28 BUN 18 mg/dl (7-17) H 09/22/17 04:28 Creatinine 0.7 mg/dl (0.7-1.2) 09/22/17 04:28 Est GFR ( Amer) > 60 09/22/17 04:28 Est GFR (Non-Af Amer) > 60 09/22/17 04:28 Random Glucose 91 mg/dL (65-105) 09/22/17 04:28 Calcium 9.1 mg/dL (8.4-10.2) 09/22/17 04:28 Phosphorus 3.8 mg/dl (2.5-4.5) 09/21/17 15:00 Magnesium 1.8 MG/DL (1.6-2.3) 09/22/17 04:28 Total Bilirubin 0.6 mg/dl (0.2-1.3) 09/22/17 04:28 AST 28 U/L (14-36) 09/22/17 04:28 ALT 22 U/L (9-52) 09/22/17 04:28 Alkaline Phosphatase 47 U/L (38-126) 09/22/17 04:28 Troponin I < 0.0120 ng/mL (0.00-0.120) 09/21/17 17:08 Total Protein 6.4 G/DL (6.3-8.2) 09/22/17 04:28 Albumin 3.4 g/dL (3.5-5.0) L D 09/22/17 04:28 Globulin 3.0 gm/dL (2.2-3.9) 09/22/17 04:28 Albumin/Globulin Ratio 1.1 (1.0-2.1) 09/22/17 04:28 - Hospital Course Hospital Course: The patient is a 75 y/o woman w/ pmh of HTN, A fib, Dementia admitted for Hypertensive urgency. The patient on admission had BP of 195/102 mm Hg, CBC WNL , CMP WNL, EKG sinus bradycardia, CXR no active pulmonary disease, CT head showed mild age-related global parenchymal volume loss, no acute intracranial abnormality. The patient's BP has stabilized and the patient denies dizziness. The patient's daughter is at bedside and wants to take patient home. Patient and daughter counseled on importance of administering BP meds for patient consistently. Daughter declines care home placement for mother at this time and can continue taking care of patient. The patient has been seen, examined, and deemed medically fit for discharge home. Patient is to follow up w/ Dr. Bustillo in 1 week. Discharge Exam - Head Exam Head Exam: ATRAUMATIC, NORMAL INSPECTION, NORMOCEPHALIC - Eye Exam Eye Exam: Normal appearance - ENT Exam ENT Exam: Mucous Membranes Moist - Respiratory Exam Respiratory Exam: Clear to PA & Lateral, NORMAL BREATHING PATTERN. absent: Decreased Breath Sounds, Rhonchi, Wheezes, Respiratory Distress - Cardiovascular Exam Cardiovascular Exam: REGULAR RHYTHM. absent: Tachycardia - GI/Abdominal Exam GI & Abdominal Exam: Normal Bowel Sounds, Soft. absent: Distended, Tenderness - Extremities Exam Extremities exam: normal inspection - Neurological Exam Neurological exam: Alert, CN II-XII Intact - Skin Skin Exam: Dry, Intact, Normal Color, Warm Discharge Plan - Follow Up Plan Condition: GOOD Disposition: HOME/ ROUTINE Instructions: High Blood Pressure in Adults Referrals: Hal Bustillo MD [Family Provider] - <Hal Bustillo - Last Filed: 09/26/17 06:40> Provider - Provider Date of Admission: 09/21/17 17:41 Attending physician: Hal Bustillo MD Hospital Course - Lab Results Lab Results: Most Recent Lab Values WBC 5.5 K/uL (4.8-10.8) 09/22/17 04:28 RBC 3.46 Mil/uL (3.80-5.20) L 09/22/17 04:28 Hgb 10.9 g/dL (12.0-16.0) L D 09/22/17 04: Hct 31.7 % (34.0-47.0) L 09/22/17 04: MCV 91.7 fl (81.0-99.0) 09/22/17 04: MCH 31.4 pg (27.0-31.0) H 09/22/17 04: MCHC 34.3 g/dL (33.0-37.0) 09/22/17 04: RDW 13.7 % (11.5-14.5) 09/22/17 04: Plt Count 154 K/uL (130-400) 09/22/17 04: MPV 11.8 fl (7.2-11.7) H 09/22/17 04: Neut % (Auto) 55.3 % (50.0-75.0) 09/22/17 04: Lymph % (Auto) 32.5 % (20.0-40.0) 09/22/17 04: Sharkey % (Auto) 9.5 % (0.0-10.0) 09/22/17 04: Eos % (Auto) 2.4 % (0.0-4.0) 09/22/17 04: Baso % (Auto) 0.3 % (0.0-2.0) 09/22/17 04: Neut # (Auto) 3.0 K/uL (1.8-7.0) 09/22/17 04: Lymph # (Auto) 1.8 K/uL (1.0-4.3) 09/22/17 04: Sharkey # (Auto) 0.5 K/uL (0.0-0.8) 09/22/17 04: Eos # (Auto) 0.1 K/uL (0.0-0.7) 09/22/17 04: Baso # (Auto) 0.0 K/uL (0.0-0.2) 09/22/17 04: Sodium 137 mmol/l (132-148) 09/22/17 04: Potassium 3.9 MMOL/L (3.6-5.0) 09/22/17 04:28 Chloride 99 mmol/L (98-107) 09/22/17 04:28 Carbon Dioxide 28 mmol/L (22-30) 09/22/17 04:28 Anion Gap 14 (10-20) 09/22/17 04:28 BUN 18 mg/dl (7-17) H 09/22/17 04:28 Creatinine 0.7 mg/dl (0.7-1.2) 09/22/17 04:28 Est GFR ( Amer) > 60 09/22/17 04:28 Est GFR (Non-Af Amer) > 60 09/22/17 04:28 Random Glucose 91 mg/dL (65-105) 09/22/17 04:28 Calcium 9.1 mg/dL (8.4-10.2) 09/22/17 04:28 Phosphorus 3.8 mg/dl (2.5-4.5) 09/21/17 15:00 Magnesium 1.8 MG/DL (1.6-2.3) 09/22/17 04:28 Total Bilirubin 0.6 mg/dl (0.2-1.3) 09/22/17 04:28 AST 28 U/L (14-36) 09/22/17 04:28 ALT 22 U/L (9-52) 09/22/17 04:28 Alkaline Phosphatase 47 U/L (38-126) 09/22/17 04:28 Troponin I < 0.0120 ng/mL (0.00-0.120) 09/21/17 17:08 Total Protein 6.4 G/DL (6.3-8.2) 09/22/17 04:28 Albumin 3.4 g/dL (3.5-5.0) L D 09/22/17 04:28 Globulin 3.0 gm/dL (2.2-3.9) 09/22/17 04:28 Albumin/Globulin Ratio 1.1 (1.0-2.1) 09/22/17 04:28 Attending/Attestation - Attestation I have personally seen and examined this patient.: Yes I have fully participated in the care of the patient.: Yes I have reviewed all pertinent clinical information, including history, physical exam and plan: Yes
== END 2017-09-25 11:30 | disposition home or self-care (01) | DRG 305 ==
LOC: H.ER 15:46 → H.ERHOLD 17:41 → H.TEL 21:34
PROVIDERS: ADMIT Family Medicine; ATTEND Family Medicine
DX: I16.0 Hypertensive urgency (principal); I48.91 Unspecified atrial fibrillation; F03.90 Unspecified dementia, unspecified severity, without behavioral disturbance, psychotic disturbance, mood disturbance, and anxiety; E83.42 Hypomagnesemia; J45.909 Unspecified asthma, uncomplicated; K29.70 Gastritis, unspecified, without bleeding; L29.9 Pruritus, unspecified; Z91.14 Patient's other noncompliance with medication regimen

== ENCOUNTER 2017-09-28 20:13 | Observation (INO) | payer MEDICARE ==
[2017-09-28 20:13] VITALS: BMI 25.7
[2017-09-28] MEDS ORDERED: Nitroglycerin 2% 15 INCH/30 GM TUBE TOP STA (20:51)
--- NOTE | 2017-09-28 21:19 | ED PDOC ---
HPI: Chest Pain Time Seen by Provider: 09/28/17 20:47 Chief Complaint (Nursing): Chest Pain Chief Complaint (Provider): Chest Pain History Per: Patient History/Exam Limitations: no limitations Additional Complaint(s): 76 year old female with a past medical history of hypertension and hypertensive encephalopathy who presents to the emergency department after she developed chest pain at rest about an hour prior to arrival. Describes chest pain is substernal and non radiating and feels short of breath. Patient was admitted in this facility and discharged yesterday for hypertension. Denies nausea, vomiting , or sweats. Of note, patient is hypertensive and is complaint with medication. Past Medical History Reviewed: Historical Data, Nursing Documentation, Vital Signs Vital Signs: Last Vital Signs Temp 98.0 F 09/28/17 20:20 Pulse 62 09/28/17 21:53 Resp 14 09/28/17 21:53 BP 178/73 H 09/28/17 21:53 Pulse Ox 97 09/28/17 22:43 - Medical History PMH: Arthritis, Asthma, Atrial Fibrillation, Dementia, Gastritis, Gall Bladder Disease, HTN Denies: HIV, Chronic Kidney Disease - Surgical History Surgical History: Cholecystectomy - Family History Family History: States: Unknown Family Hx - Home Medications Home Medications: Ambulatory Orders Medication Instructions Recorded Albuterol HFA [Ventolin HFA 90 2 puff IH Q6H PRN 09/21/17 mcg/actuation (8 g)] Carvedilol [Coreg] 12.5 mg PO DAILY 09/21/17 Esomeprazole Magnesium [Nexium] 40 mg PO DAILY 09/21/17 Memantine HCl/Donepezil HCl 1 cap PO HS 09/21/17 [Namzaric 28 mg-10 mg Capsule] Valsartan [Diovan] 160 mg PO DAILY 09/21/17 - Allergies Allergies/Adverse Reactions: Allergies Allergy/AdvReac Type Severity Reaction Status Date / Time adhesive tape Allergy RASH Verified 09/28/17 20:20 Review of Systems ROS Statement: Except As Marked, All Systems Reviewed And Found Negative (As per HPI, otherwise negative) Constitutional: Negative for: Sweats Cardiovascular: Positive for: Chest Pain Respiratory: Positive for: Shortness of Breath Gastrointestinal: Negative for: Nausea, Vomiting Physical Exam - Reviewed Nursing Documentation Reviewed: Yes Vital Signs Reviewed: Yes - Physical Exam Appears: Positive for: No Acute Distress Head Exam: Positive for: NORMAL INSPECTION Skin: Positive for: Normal Color, Warm, Dry Cardiovascular/Chest: Positive for: Regular Rate, Rhythm. Negative for: Murmur Respiratory: Positive for: Normal Breath Sounds. Negative for: Decreased Breath Sounds, Accessory Muscle Use, Respiratory Distress Gastrointestinal/Abdominal: Positive for: Normal Exam, Soft. Negative for: Tenderness Extremity: Positive for: Normal ROM. Negative for: Pedal Edema Neurologic/Psych: Positive for: Alert, Oriented (x3) - Laboratory Results Result Diagrams: 09/28/17 21:24 09/28/17 21:24 - ECG O2 Sat by Pulse Oximetry: 97 (RA) Pulse Ox Interpretation: Normal Medical Decision Making Medical Decision Making: Time: 2105 Initial impression: Chest pain and hypertension in setting of known hypertensive disease Initial plan: --BNP --CMP --Magnesium --Troponin I --CBC w/ diff --PTT & Prothrombin --Chest Portable --Nitroglycerin 2% --reevaluation Time: 2237 --Labs show no significant abnormalities with exception of low magnesium level. 2gm Magnesium Sulfate ordered. Patient will be admitted to observation in telemetry for chest pain and hypomagnesemia. Referred cased to admitting resident Dr. Hal Bustillo MD. Scribe Attestation: Documented by Romina Wray, acting as a scribe for aTn Bentley MD. Provider Scribe Attestation: All medical record entries made by the Scribe were at my direction and personally dictated by me. I have reviewed the chart and agree that the record accurately reflects my personal performance of the history, physical exam, medical decision making, and the department course for this patient. I have also personally directed, reviewed, and agree with the discharge instructions and disposition. Disposition - Disposition
[2017-09-28 21:38] LABS: BASO % 0.3 % (0.0-2.0); EOS # 0.3 K/uL (0.0-0.7); EOS % 6.2 % (0.0-4.0); HEMOGLOBIN 10.8 g/dL (12.0-16.0); LYMPH # 1.9 K/uL (1.0-4.3); LYMPH % 37.3 % (20.0-40.0); MEAN CELL VOLUME 92.4 fl (81.0-99.0); MEAN CORPUSCULAR HEMOGLOBIN 30.7 pg (27.0-31.0); MEAN CORPUSCULAR HGB CONC 33.2 g/dL (33.0-37.0); MEAN PLATELET VOLUME 11.7 fl (7.2-11.7); MONO # 0.7 K/uL (0.0-0.8); MONO % 13.4 % (0.0-10.0); NEUT # 2.2 K/uL (1.8-7.0); NEUT % 42.8 % (50.0-75.0); NRBC % 0.1 % (0.0-0.0); RBC 3.52 Mil/uL (3.80-5.20); RED CELL DISTRIBUTION WIDTH 13.5 % (11.5-14.5); WHITE BLOOD COUNT 5.2 K/uL (4.8-10.8)
[2017-09-28] MEDS ORDERED: Nitroglycerin 2% Ointment Foilpak UD TOP ONE (21:41)
[2017-09-28 21:58] LABS: INR 1.1 (0.9-1.2); PARTIAL THROMBOPLASTIN TIME 30.1 Seconds (25.6-37.1); PROTHROMBIN TIME 11.8 Seconds (9.8-13.1)
[2017-09-28 22:20] LABS: ALB/GLOB RATIO 1.2 (1.0-2.1); ALBUMIN 3.6 g/dL (3.5-5.0); ALT/SGPT 23 U/L (9-52); AST/SGOT 22 U/L (14-36); BLOOD UREA NITROGEN 18 mg/dl (7-17); CALCIUM 8.9 mg/dL (8.4-10.2); GFR AFRICAN-AMERICAN > 60; GFR NON-AFRICAN AMERICAN > 60; MAGNESIUM 1.2 MG/DL (1.6-2.3)
[2017-09-28 22:32] LABS: B-TYPE NATRIURETIC PEPTIDE 411 pg/ml (0-900)
[2017-09-28] MEDS ORDERED: Magnesium Sulfate 2 gm/50 ml 2 GM/50 ML BAG IV STA (23:02)
[2017-09-28] MEDS ORDERED: Albuterol HFA 90 mcg/actuation (8 g) IH PRN (23:27)
[2017-09-28] MEDS ORDERED: Magnesium Sulfate 2 gm/50 ml 2 GM/50 ML BAG ONE (23:27)
--- NOTE | 2017-09-28 23:30 | CP.PCM.HP ---
<Daniel Reyes - Last Filed: 09/29/17 00:48> History of Present Illness - History of Present Illness History of Present Illness: "my chest hurts" 76 y/o female with a PMHx remarkable for Atrial fibrillation, HTN, and Dementia presents to the ED complaining of chest pain. The chest pain started this evening w/o any inciting or triggering event. Pt was seen by her PMD on 09/28 in the early afternoon and denied symptoms at visit. Pain is 7/10, located midsternally, pressure-like in character, nonradiating, w/o known alleviating or aggravating factors. She denies prior episodes. She has only taken her anti- hypertensives this morning. No meds taken for pain. Pt does not take aspirin. No associated fever/chills, SOB/palpitations/ZEPEDA, exertional pain, orthopnea, cough, diaphoresis, N/V/D/C, rash. PMD: Dr Bustillo, last seen on 09/28/2017 PMHx: HTN, Afib, Gastritis PSHx: Cholecystectomy Allergies: NKDA Meds: Coreg 12.5mg PO daily Valsartan 160mg PO daily Nexium 40mg PO daily Albuterol inhaler prn Memantine HCL FamilyHx: unknown SocialHx: Denies tobacco/ETOH/drug abuse LMP: >20 years ago Code Status: Full code Next of kin: daughter ED Course: Vitals on presentation: T: 98.0 F, HR: 64, BP: 191/80, RR: 16, POX: 97% on RA Labs: CBC: H/H: 10.8/32.5 CMP: wnl Magnesium: 1.2 Troponin: <0.0120 Imaging: EKG: NSR, 65bpm, normal axis, LVH (35mm), MI: ~150, QTc 414, no q-waves/ST- elevations/depressions as interpreted by me. CXR: cardiomegaly Meds: Aspirin 324mg PO once Nitropaste Present on Admission - Present on Admission Any Indicators Present on Admission: No Review of Systems - Constitutional Constitutional: absent: As Per HPI, Anorexia, Chills, Daytime Sleepiness, Excessive Sweating, Fatigue, Fever, Frequent Falls, Headache, Increased Appetite , Lethargy, Malaise, Night Sweats, Snoring, Sleep Apnea, Weight Gain, Weight Loss, Weakness, Other - EENT Eyes: absent: As Per HPI, Blind Spots, Blurred Vision, Change in Vision, Decreased Night Vision, Diplopia, Discharge, Dry Eye, Exophthalmos, Floaters, Irritation, Itchy Eyes, Loss of Peripheral Vision, Pain, Photophobia, Requires Corrective Lenses, Sees Flashes, Spots in Vision, Tunnel Vision, Other Visual Disturbances, Loss of Vision, Other Ears: absent: As Per HPI, Decreased Hearing, Ear Discharge, Ear Pain, Tinnitus, Abnormal Hearing, Disequilibrium, Dizziness, Other - Cardiovascular Cardiovascular: As Per HPI, Chest Pain, Chest Pain at Rest. absent: Acrocyanosis, Chest Pain with Activity, Claudication, Diaphoresis, Dyspnea, Dyspnea on Exertion, Irregular Heart Rhythm, Pain Radiating to Arm/Neck/Jaw, Leg Edema, Lightheadedness, Orthopnea, Palpitations, Paroxysmal Nocturnal Dyspnea, Pedal Edema, Radiating Pain, Rapid Heart Rate, Slow Heart Rate, Syncope - Respiratory Respiratory: absent: As Per HPI, Cough, Dyspnea, Hemoptysis, Dyspnea on Exertion , Wheezing, Snoring, Stridor, Pain on Inspiration, Chest Congestion, Excessive Mucous Production, Change in Mucous Color, Pain with Coughing, Other - Gastrointestinal Gastrointestinal: absent: As Per HPI, Abdominal Pain, Belching, Bloating, Change in Bowel Habits, Change in Stool Character, Coffee Ground Emesis, Constipation, Cramping, Diarrhea, Dyspepsia, Dysphagia, Early Satiety, Excessive Flatus, Fecal Incontinence, Heartburn, Hematemesis, Hematochezia, Loose Stools, Melena, Nausea, Odynophagia, Temesmus, Vomiting, Other - Genitourinary Genitourinary: absent: As Per HPI, Change in Urinary Stream, Difficulty Urinating, Dysuria, Flank Pain, Hematuria, Pyuria, Nocturia, Urinary Incontinence, Urinary Frequency, Urinary Hesitance, Urinary Urgency, Voiding Freq/Small Amts, Freq UTI, Hx Renal/Bladder Calculi, Hx /Renal Surgery, Bladder Distension, Other - Musculoskeletal Musculoskeletal: absent: As Per HPI, Abnormal Gait, Arthralgias, Atrophy, Back Pain, Deformity, Joint Swelling, Limited Range of Motion, Loss of Height, Muscle Cramps, Muscle Weakness, Myalgias, Neck Pain, Numbness, Radiating Pain into Limb, Stiffness, Tingling, Other - Neurological Neurological: absent: As Per HPI, Abnormal Gait, Abnormal Hearing, Abnormal Movements, Abnormal Speech, Behavioral Changes, Burning Sensations, Confusion, Convulsions, Disequilibrium, Dizziness, Numbness, Focal Weakness, Frequent Falls , Headaches, Lack of Coordination, Loss of Vision, Memory Loss, Paresthesias, Radicular Pain, Restless Legs, Sensory Deficit, Syncope, Tingling, Tremor, Vertigo, Weakness, Other Visual Disturbances, Other Past Patient History - Past Medical History & Family History Past Medical History?: Yes - Past Social History Smoking Status: Never Smoked Alcohol: None Drugs: Denies Home Situation {Lives}: With Family - CARDIAC Hx Atrial Fibrillation: Yes Hx Hypertension: Yes - PULMONARY Hx Asthma: Yes - NEUROLOGICAL Hx Dementia: Yes - HEENT Hx HEENT Problems: No - RENAL Hx Chronic Kidney Disease: No - ENDOCRINE/METABOLIC Hx Endocrine Disorders: No - HEMATOLOGICAL/ONCOLOGICAL Hx Human Immunodeficiency Virus (HIV): No - INTEGUMENTARY Hx Dermatological Problems: No - MUSCULOSKELETAL/RHEUMATOLOGICAL Hx Arthritis: Yes - GASTROINTESTINAL Hx Gall Bladder Disease: Yes Hx Gastritis: Yes - GENITOURINARY/GYNECOLOGICAL Hx Genitourinary Disorders: No - PSYCHIATRIC Hx Psychophysiologic Disorder: No Hx Substance Use: No - SURGICAL HISTORY Hx Cholecystectomy: Yes - ANESTHESIA Hx Anesthesia: Yes Hx Anesthesia Reactions: No Hx Malignant Hyperthermia: No Meds Allergies/Adverse Reactions: Allergies Allergy/AdvReac Type Severity Reaction Status Date / Time adhesive tape Allergy RASH Verified 09/28/17 20:20 Physical Exam - Constitutional Appears: Non-toxic, No Acute Distress - Head Exam Head Exam: ATRAUMATIC, NORMOCEPHALIC - Eye Exam Eye Exam: EOMI, Normal appearance, PERRL. absent: Conjunctival injection, Scleral icterus Pupil Exam: NORMAL ACCOMODATION, PERRL - ENT Exam ENT Exam: Mucous Membranes Moist, Normal Exam - Neck Exam Neck exam: Positive for: Full Rom, Normal Inspection, Tenderness. Negative for : Lymphadenopathy - Respiratory Exam Respiratory Exam: Clear to Auscultation Bilateral, NORMAL BREATHING PATTERN. absent: Rales, Rhonchi, Wheezes, Respiratory Distress - Cardiovascular Exam Cardiovascular Exam: REGULAR RHYTHM, RRR, +S1, +S2. absent: Diastolic murmur, Gallop, JVD, Rubs, Systolic Murmur - GI/Abdominal Exam GI & Abdominal Exam: Normal Bowel Sounds, Soft. absent: Tenderness - Extremities Exam Extremities exam: Positive for: normal capillary refill, normal inspection, pedal pulses present. Negative for: calf tenderness, pedal edema, tenderness - Back Exam Back exam: NORMAL INSPECTION. absent: CVA tenderness (L), CVA tenderness (R) - Neurological Exam Neurological exam: Alert, CN II-XII Intact, Normal Gait, Oriented x3, Reflexes Normal - Psychiatric Exam Psychiatric exam: Normal Affect, Normal Mood - Skin Skin Exam: Dry, Intact, Normal Color, Warm (tenderness at midsternal area, nonreproducible) Results - Vital Signs Recent Vital Signs: Last Vital Signs Temp 98.0 F 09/28/17 20:20 Pulse 62 09/28/17 21:53 Resp 14 09/28/17 21:53 BP 178/73 H 09/28/17 21:53 Pulse Ox 97 09/28/17 23:21 - Labs Result Diagrams: 09/28/17 21:24 09/28/17 21:24 Labs: Laboratory Results - last 24 hr 09/28/17 09/28/17 09/28/17 21:24 21:24 21:24 WBC 5.2 RBC 3.52 L Hgb 10.8 L Hct 32.5 L MCV 92.4 MCH 30.7 MCHC 33.2 RDW 13.5 Plt Count 172 MPV 11.7 Neut % (Auto) 42.8 L Lymph % (Auto) 37.3 [place] % (Auto) 13.4 H Eos % (Auto) 6.2 H Baso % (Auto) 0.3 Neut # (Auto) 2.2 Lymph # (Auto) 1.9 [place] # (Auto) 0.7 Eos # (Auto) 0.3 Baso # (Auto) 0.0 PT 11.8 INR 1.1 APTT 30.1 Sodium 139 Potassium 4.5 Chloride 103 Carbon Dioxide 26 Anion Gap 15 BUN 18 H Creatinine 0.9 Est GFR ( Amer) > 60 Est GFR (Non-Af Amer) > 60 Random Glucose 103 Calcium 8.9 Magnesium 1.2 L Total Bilirubin 0.3 AST 22 ALT 23 Alkaline Phosphatase 55 Troponin I < 0.0120 NT-Pro-B Natriuret Pep 411 Total Protein 6.7 Albumin 3.6 Globulin 3.1 Albumin/Globulin Ratio 1.2 Assessment & Plan - Assessment and Plan (Free Text) Assessment: 76 y/o female with PMHx remarkable for Atrial fibrillation, HTN, dementia admitted for chest pain to rule out acute coronary syndrome. Plan: 1) Atypical Chest Pain: -rule out cardiac etiology 2/2 to comorbities -s/p 324mg Aspirin and Nitropaste -Troponin Q6H -repeat EKG in AM -Tylenol 650mg PRN mild pain -Toradol 30mg moderate pain 2) Hypertension -uncertain control -c/w with home medications as ordered 3) Atrial Fibrillation -stable -c/w with home medications as ordered 4) Diet: -heart healthy 2gm Na 5) Prophylaxis: CrCl: 57 ambulation/SCDs Lovenox 40mg SC QD <Hal Bustillo - Last Filed: 10/02/17 07:00> Results - Vital Signs Recent Vital Signs: Last Vital Signs Temp 97.7 F 09/30/17 12:04 Pulse 55 L 09/30/17 12:04 Resp 18 09/30/17 12:04 BP 144/79 09/30/17 12:04 Pulse Ox 97 09/30/17 12:04 - Labs Result Diagrams: 09/30/17 08:37 09/30/17 08:37 Attending/Attestation - Attestation I have personally seen and examined this patient.: Yes I have fully participated in the care of the patient.: Yes I have reviewed all pertinent clinical information: Yes
[2017-09-29] MEDS ORDERED: Pantoprazole 40 mg EC Tab PO ONE (08:40)
--- NOTE | 2017-09-29 08:56 | RAD ---
HISTORY: chest pain COMPARISON: Chest radiograph dated 09/21/2017. FINDINGS: LUNGS: Stable chronic prominence of the bilateral interstitial markings. No focal consolidation. PLEURA: No significant pleural effusion identified, no pneumothorax apparent. CARDIOVASCULAR: Atherosclerotic aortic calcifications. Cardiomediastinal silhouette stably enlarged. OSSEOUS STRUCTURES: Unchanged. VISUALIZED UPPER ABDOMEN: Normal. OTHER FINDINGS: None. IMPRESSION: Stable chronic prominence of the bilateral interstitial markings. No focal consolidation or pleural effusion.
[2017-09-29] MEDS: Enoxaparin 40 mg Syringe SC SCH (09:14)
[2017-09-29] MEDS: Pantoprazole 40 mg EC Tab PO SCH (10:54)
--- NOTE | 2017-09-29 11:07 | CP.PCM.CON ---
History of Present Illness - History of Present Illness History of Present Illness: THE PATIENT IS KNOWN TO ME FROM [facility] ADMISSIONS. SHE HAS A HISTORY OF HYPERTENSION AND DEMENTIA AND FORGETS TO TAKE HER MEDICINES ON A CONSISTENT BASIS AND OFTEN HAS AN ELEVATED BLOOD PRESSURE. SHE HAD ATRIAL FIBRILLATION IN THE PAST WHEN SHE WAS HYPOKALEMIC AND IT RESOLVED WITH POTASSIUM REPLACEMENT. SHE WAS ADMITTED TO THE [facility] [place] RECENTLY AND HAD ELEVATED TROPONINS AND HAD A CARDIAC CATHETERIZATION THAT SHOWED NORMAL CORONARY ARTERIES. SHE CAME TO THE ER LAST NIGHT FOR CHEST PAIN AND AGAIN HER BLOOD PRESSURE WAS ELEVATED. SHE IS PAIN FREE THIS MORNING AND HER TROPONINS ARE NORMAL AND HER EKG DOESN'T SHOW ANY ACUTE CHANGES. DR SANCHEZ ASKED ME TO SEE HER AND ASKED IF SHE COULD BE DISCHARGED. Past Patient History - Past Medical History & Family History Past Medical History?: Yes - Past Social History Smoking Status: Never Smoked Alcohol: None Drugs: Denies Home Situation {Lives}: With Family - CARDIAC Hx Atrial Fibrillation: Yes Hx Hypertension: Yes - PULMONARY Hx Asthma: Yes - NEUROLOGICAL Hx Dementia: Yes - HEENT Hx HEENT Problems: No - RENAL Hx Chronic Kidney Disease: No - ENDOCRINE/METABOLIC Hx Endocrine Disorders: No - HEMATOLOGICAL/ONCOLOGICAL Hx Human Immunodeficiency Virus (HIV): No - INTEGUMENTARY Hx Dermatological Problems: No - MUSCULOSKELETAL/RHEUMATOLOGICAL Hx Arthritis: Yes - GASTROINTESTINAL Hx Gall Bladder Disease: Yes Hx Gastritis: Yes - GENITOURINARY/GYNECOLOGICAL Hx Genitourinary Disorders: No - PSYCHIATRIC Hx Psychophysiologic Disorder: No Hx Substance Use: No - SURGICAL HISTORY Hx Cholecystectomy: Yes - ANESTHESIA Hx Anesthesia: Yes Hx Anesthesia Reactions: No Hx Malignant Hyperthermia: No Meds Allergies/Adverse Reactions: Allergies Allergy/AdvReac Type Severity Reaction Status Date / Time adhesive tape Allergy RASH Verified 09/28/17 20:20 - Medications Medications: Current Medications Acetaminophen (Tylenol 325mg Tab) 650 mg PO Q6 PRN PRN Reason: Pain, Mild (1-3) Albuterol (Ventolin Hfa 90 Mcg/Actuation (8 G)) 2 puff IH Q6H PRN PRN Reason: Shortness of Breath Carvedilol (Coreg) 12.5 mg PO DAILY [facility] Last Admin: 09/29/17 09:12 Dose: 12.5 mg Donepezil HCl (Aricept) 10 mg PO HS [facility] Enoxaparin Sodium (Lovenox) 40 mg SC DAILY [facility] PRN Reason: Protocol Last Admin: 09/29/17 09:14 Dose: 40 mg Ketorolac Tromethamine (Toradol) 30 mg IVP Q6 PRN PRN Reason: Pain, moderate (4-7) Memantine (Namenda) 10 mg PO BID [facility] Last Admin: 09/29/17 09:13 Dose: 10 mg Pantoprazole Sodium (Protonix Ec Tab) 40 mg PO DAILY [facility] Last Admin: 09/29/17 10:54 Dose: 40 mg Valsartan (Diovan) 160 mg PO DAILY [facility] Last Admin: 09/29/17 09:13 Dose: 160 mg Physical Exam - Respiratory Exam Respiratory Exam: Clear to Auscultation Bilateral - Cardiovascular Exam Cardiovascular Exam: REGULAR RHYTHM, +S1, +S2 - Extremities Exam Additional comments: NO SIGNIFICANT EDEMA - Additional Findings Additional findings: EKG NSR, NO ACUTE CHANGES TROPONIN NORMAL X 3 CXR WITH CHRONIC CHANGES BP WAS 191/80 LAST NIGHT Results - Vital Signs Recent Vital Signs: Last Vital Signs Temp 98.2 F 09/29/17 07:49 Pulse 75 09/29/17 09:12 Resp 16 09/29/17 07:49 BP 183/81 H 09/29/17 09:12 Pulse Ox 98 09/29/17 07:49 - Labs Result Diagrams: 09/28/17 21:24 09/28/17 21:24 Labs: Laboratory Results - last 24 hr 09/28/17 09/28/17 09/28/17 21:24 21:24 21:24 WBC 5.2 RBC 3.52 L Hgb 10.8 L Hct 32.5 L MCV 92.4 MCH 30.7 MCHC 33.2 RDW 13.5 Plt Count 172 MPV 11.7 Neut % (Auto) 42.8 L Lymph % (Auto) 37.3 [place] % (Auto) 13.4 H Eos % (Auto) 6.2 H Baso % (Auto) 0.3 Neut # (Auto) 2.2 Lymph # (Auto) 1.9 [place] # (Auto) 0.7 Eos # (Auto) 0.3 Baso # (Auto) 0.0 PT 11.8 INR 1.1 APTT 30.1 Sodium 139 Potassium 4.5 Chloride 103 Carbon Dioxide 26 Anion Gap 15 BUN 18 H Creatinine 0.9 Est GFR ( Amer) > 60 Est GFR (Non-Af Amer) > 60 Random Glucose 103 Calcium 8.9 Magnesium 1.2 L Total Bilirubin 0.3 AST 22 ALT 23 Alkaline Phosphatase 55 Troponin I < 0.0120 NT-Pro-B Natriuret Pep 411 Total Protein 6.7 Albumin 3.6 Globulin 3.1 Albumin/Globulin Ratio 1.2 09/29/17 09/29/17 03:48 10:22 WBC RBC Hgb Hct MCV MCH MCHC RDW Plt Count MPV Neut % (Auto) Lymph % (Auto) [place] % (Auto) Eos % (Auto) Baso % (Auto) Neut # (Auto) Lymph # (Auto) [place] # (Auto) Eos # (Auto) Baso # (Auto) PT INR APTT Sodium Potassium Chloride Carbon Dioxide Anion Gap BUN Creatinine Est GFR ( Amer) Est GFR (Non-Af Amer) Random Glucose Calcium Magnesium Total Bilirubin AST ALT Alkaline Phosphatase Troponin I < 0.0120 < 0.0120 NT-Pro-B Natriuret Pep Total Protein Albumin Globulin Albumin/Globulin Ratio Assessment & Plan - Assessment and Plan (Free Text) Assessment: CHEST PAIN LAST NIGHT BUT SHE IS PAIN FREE THIS MORNING AND HER EKG DID NOT SHOW ANY ACUTE CHANGES AND HER TROPONINS WERE NORMAL HYPERTENSION DEMENTIA Plan: THE PATIENT WAS GIVEN HER CARVEDILOL AND VALSARTAN THIS MORNING AND SHE CAN BE DISCHARGED IF HER BLOOD PRESSURE LOWER TO A SAFE LEVEL SHE WAS GIVEN ASPIRIN IN THE ER
--- NOTE | 2017-09-29 18:06 | CARD ---
APPROVED REPORT EKG Measurement Heart [id number] <Conclusion> Normal sinus rhythm Nonspecific ST abnormality Abnormal ECG
--- NOTE | 2017-09-29 18:10 | CP.PCM.PN ---
Subjective - Date & Time of Evaluation Date of Evaluation: 09/29/17 Time of Evaluation: 07:50 - Subjective Subjective: Pt was seen and evaluated this am; states that her chest pain was unrelated to any activity and did not radiate anywhere. Denied sweating, shortness f breath at the time the chest pain occurred. Appeared comfortable in bed, and offered no other complaints at this time. Objective - Vital Signs/Intake and Output Vital Signs (last 24 hours): Temp Pulse Resp BP Pulse Ox 98.1 F 59 L 18 168/72 H 98 09/29/17 16:51 09/29/17 16:51 09/29/17 16:51 09/29/17 16:51 09/29/17 16:51 - Medications Medications: Current Medications Acetaminophen (Tylenol 325mg Tab) 650 mg PO Q6 PRN PRN Reason: Pain, Mild (1-3) Albuterol (Ventolin Hfa 90 Mcg/Actuation (8 G)) 2 puff IH Q6H PRN PRN Reason: Shortness of Breath Carvedilol (Coreg) 12.5 mg PO DAILY [facility] Last Admin: 09/29/17 09:12 Dose: 12.5 mg Donepezil HCl (Aricept) 10 mg PO HS [facility] Enoxaparin Sodium (Lovenox) 40 mg SC DAILY [facility] PRN Reason: Protocol Last Admin: 09/29/17 09:14 Dose: 40 mg Ketorolac Tromethamine (Toradol) 30 mg IVP Q6 PRN PRN Reason: Pain, moderate (4-7) Memantine (Namenda) 10 mg PO BID [facility] Last Admin: 09/29/17 17:18 Dose: 10 mg Pantoprazole Sodium (Protonix Ec Tab) 40 mg PO DAILY [facility] Last Admin: 09/29/17 10:54 Dose: 40 mg Valsartan (Diovan) 160 mg PO DAILY [facility] Last Admin: 09/29/17 09:13 Dose: 160 mg - Labs Labs: 09/28/17 21:24 09/28/17 21:24 PT 11.8 Seconds (9.8-13.1) 09/28/17 21:24 INR 1.1 (0.9-1.2) 09/28/17 21:24 APTT 30.1 Seconds (25.6-37.1) 09/28/17 21:24 - Constitutional Appears: Non-toxic - Head Exam Head Exam: ATRAUMATIC - Eye Exam Eye Exam: Normal appearance - ENT Exam ENT Exam: Mucous Membranes Moist - Respiratory Exam Respiratory Exam: Clear to Ausculation Bilateral, NORMAL BREATHING PATTERN. absent: Respiratory Distress - Cardiovascular Exam Cardiovascular Exam: REGULAR RHYTHM, +S1, +S2 - GI/Abdominal Exam GI & Abdominal Exam: Soft, Normal Bowel Sounds - Extremities Exam Extremities Exam: Normal Inspection - Back Exam Back Exam: NORMAL INSPECTION - Neurological Exam Neurological Exam: Alert, Awake, Oriented x3 - Skin Skin Exam: Dry, Normal Color, Warm Assessment and Plan - Assessment and Plan (Free Text) Assessment: 76 y/o female with PMHx remarkable for Atrial fibrillation, HTN, dementia admitted for chest pain to rule out acute coronary syndrome. Has suboptimal blood pressure control. Plan: # Hypertension - Suboptimal compliance - Continue with home medications as ordered - Monitor BP - Cardio consult Dr. Duarte; pt needs blood pressure control # Atypical Chest Pain - Rule out cardiac etiology; troponin negative x3 - S/p 324mg Aspirin and Nitropaste # Atrial Fibrillation - Stable - Continue with home medications as ordered # Diet - Heart healthy # DVT Prophylaxis - CrCl: 57 - Ambulation/SCDs - Lovenox 40mg SC QD
[2017-09-29] MEDS ORDERED: Patient's Own Med (Memantine Hcl/Donepezil Hcl [Namzaric 28 Mg-10 Mg Capsule] 1 CAP) PO SCH (22:00)
[2017-09-30] MEDS: Pantoprazole 40 mg EC Tab PO SCH (08:22)
[2017-09-30] MEDS: Enoxaparin 40 mg Syringe SC SCH (08:22)
--- NOTE | 2017-09-30 08:58 | CP.PCM.DIS ---
Provider - Provider Date of Admission: 09/28/17 22:38 Attending physician: Hal Bustillo MD Time Spent in preparation of Discharge (in minutes): 45 Diagnosis - Discharge Diagnosis (1) Atypical chest pain Status: Acute Comment: EKG w/o acute changes, Troponins negative, reproducible pain. Patient has baseline dementia that results in incomplete adherence to her medication regimen. She was seen and evaluated by Cardiology (Dr Duarte) and the recomendation was a safe discharge when SBP of 150-160 mmHg was achieved. (2) Hypertension Status: Chronic Priority: Medium Comment: Patient with uncontrolled BP suspect due to underlying mild dementia despite daughters efforts to assist with pill boxes. Started HCTZ 12.5mg, PO as adjunct for improved blood pressure control. May benefit from a home health aide? Hospital Course - Lab Results Lab Results: Most Recent Lab Values WBC 5.2 K/uL (4.8-10.8) 09/28/17 21:24 RBC 3.52 Mil/uL (3.80-5.20) L 09/28/17 21:24 Hgb 10.8 g/dL (12.0-16.0) L 09/28/17 21:24 Hct 32.5 % (34.0-47.0) L 09/28/17 21:24 MCV 92.4 fl (81.0-99.0) 09/28/17 21:24 MCH 30.7 pg (27.0-31.0) 09/28/17 21:24 MCHC 33.2 g/dL (33.0-37.0) 09/28/17 21:24 RDW 13.5 % (11.5-14.5) 09/28/17 21:24 Plt Count 172 K/uL (130-400) 09/28/17 21:24 MPV 11.7 fl (7.2-11.7) 09/28/17 21:24 Neut % (Auto) 42.8 % (50.0-75.0) L 09/28/17 21:24 Lymph % (Auto) 37.3 % (20.0-40.0) 09/28/17 21:24 [place] % (Auto) 13.4 % (0.0-10.0) H 09/28/17 21:24 Eos % (Auto) 6.2 % (0.0-4.0) H 09/28/17 21:24 Baso % (Auto) 0.3 % (0.0-2.0) 09/28/17 21:24 Neut # (Auto) 2.2 K/uL (1.8-7.0) 09/28/17 21:24 Lymph # (Auto) 1.9 K/uL (1.0-4.3) 09/28/17 21:24 [place] # (Auto) 0.7 K/uL (0.0-0.8) 09/28/17 21:24 Eos # (Auto) 0.3 K/uL (0.0-0.7) 09/28/17 21:24 Baso # (Auto) 0.0 K/uL (0.0-0.2) 09/28/17 21:24 PT 11.8 Seconds (9.8-13.1) 09/28/17 21:24 INR 1.1 (0.9-1.2) 09/28/17 21:24 APTT 30.1 Seconds (25.6-37.1) 09/28/17 21:24 Sodium 139 mmol/l (132-148) 09/28/17 21:24 Potassium 4.5 MMOL/L (3.6-5.0) 09/28/17 21:24 Chloride 103 mmol/L (98-107) 09/28/17 21:24 Carbon Dioxide 26 mmol/L (22-30) 09/28/17 21:24 Anion Gap 15 (10-20) 09/28/17 21:24 BUN 18 mg/dl (7-17) H 09/28/17 21:24 Creatinine 0.9 mg/dl (0.7-1.2) 09/28/17 21:24 Est GFR ( Amer) > 60 09/28/17 21:24 Est GFR (Non-Af Amer) > 60 09/28/17 21:24 Random Glucose 103 mg/dL (65-105) 09/28/17 21:24 Calcium 8.9 mg/dL (8.4-10.2) 09/28/17 21:24 Magnesium 1.2 MG/DL (1.6-2.3) L 09/28/17 21:24 Total Bilirubin 0.3 mg/dl (0.2-1.3) 09/28/17 21:24 AST 22 U/L (14-36) 09/28/17 21:24 ALT 23 U/L (9-52) 09/28/17 21:24 Alkaline Phosphatase 55 U/L (38-126) 09/28/17 21:24 Troponin I < 0.0120 ng/mL (0.00-0.120) 09/29/17 10:22 NT-Pro-B Natriuret Pep 411 pg/ml (0-900) 09/28/17 21:24 Total Protein 6.7 G/DL (6.3-8.2) 09/28/17 21:24 Albumin 3.6 g/dL (3.5-5.0) 09/28/17 21:24 Globulin 3.1 gm/dL (2.2-3.9) 09/28/17 21:24 Albumin/Globulin Ratio 1.2 (1.0-2.1) 09/28/17 21:24 - Hospital Course Hospital Course: Patient seen and examined at bedside with attending. NO acute complaints today , she denies any dizziness/headaches/SOB/chest pain/palpitations and has been tolerating PO and voiding. 76F p/w recurrent chest wall pain and work was negative for ischemia at this time. She is stable for discharge and f/u in 1 week for further management. 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 Discharge Exam - Head Exam Head Exam: ATRAUMATIC - Eye Exam Eye Exam: EOMI, Normal appearance - Respiratory Exam Respiratory Exam: Clear to PA & Lateral, NORMAL BREATHING PATTERN. absent: Rales, Rhonchi, Wheezes - Cardiovascular Exam Cardiovascular Exam: REGULAR RHYTHM. absent: JVD - GI/Abdominal Exam GI & Abdominal Exam: Normal Bowel Sounds, Soft. absent: Tenderness - Extremities Exam Extremities exam: normal capillary refill, pedal pulses present - Neurological Exam Neurological exam: Alert - Psychiatric Exam Psychiatric exam: Normal Affect, Normal Mood - Skin Skin Exam: Dry, Warm Discharge Plan - Discharge Medications Prescriptions: hydroCHLOROthiazide [Microzide] 12.5 mg PO DAILY #30 cap - Follow Up Plan Condition: STABLE Disposition: HOME/ ROUTINE Patient education suggested?: Yes Instructions: Chest Pain That Is Not Caused by the Heart (DC), Costochondritis (DC) Referrals: Hal Bustillo MD [Staff Provider] - 1 Week Bethel Duarte MD [Staff Provider] - 1 Week
[2017-09-30 09:54] LABS: HEMOGLOBIN 12.6 g/dL (12.0-16.0); MEAN CELL VOLUME 91.6 fl (81.0-99.0); MEAN CORPUSCULAR HEMOGLOBIN 31.3 pg (27.0-31.0); MEAN CORPUSCULAR HGB CONC 34.2 g/dL (33.0-37.0); RBC 4.03 Mil/uL (3.80-5.20); RED CELL DISTRIBUTION WIDTH 13.4 % (11.5-14.5)
[2017-09-30 10:13] LABS: BLOOD UREA NITROGEN 16 mg/dl (7-17); CALCIUM 9.5 mg/dL (8.4-10.2); GFR AFRICAN-AMERICAN > 60; GFR NON-AFRICAN AMERICAN > 60; MAGNESIUM 1.1 MG/DL (1.6-2.3)
[2017-09-30] MEDS ORDERED: Magnesium Sulfate 1 GM in Dextrose 5% In Water 100 ML IVPB ONE (11:45)
[2017-09-30 12:04] VITALS: BP 144/79; PULSE 55; RESP 18; TEMP 97.7; O2SAT 97
== END 2017-09-30 15:00 | disposition home or self-care (01) ==
LOC: H.ER 20:13 → H.ERHOLD 22:38 → H.TEL 09-29 13:53
PROVIDERS: ADMIT Family Medicine; ATTEND Family Medicine
DX: R07.89 Other chest pain (principal); I10 Essential (primary) hypertension; I48.91 Unspecified atrial fibrillation; J45.909 Unspecified asthma, uncomplicated; Z90.49 Acquired absence of other specified parts of digestive tract; K29.70 Gastritis, unspecified, without bleeding; K82.9 Disease of gallbladder, unspecified; M19.90 Unspecified osteoarthritis, unspecified site; Z79.899 Other long term (current) drug therapy; R74.8 Abnormal levels of other serum enzymes; F03.90 Unspecified dementia, unspecified severity, without behavioral disturbance, psychotic disturbance, mood disturbance, and anxiety
CPT/HCPCS: 36415; 71045; 80048; 80053; 83735; 83880; 84484; 85025; 85027; 85610; 85730; 93005; 96372; 99285; G0378; J1650; J3475

== ENCOUNTER 2018-11-22 10:14 | Emergency (ER) | payer MEDICARE ==
[2018-11-22 10:23] VITALS: TEMP 98.4
[2018-11-22 10:24] VITALS: BMI 30.2
[2018-11-22] MEDS ORDERED: DiphenhydrAMINE 50 mg/ml Inj IVP STA (11:13)
[2018-11-22] MEDS ORDERED: DiphenhydrAMINE 50 mg/ml Inj ONE (11:22)
--- NOTE | 2018-11-22 11:23 | ED PDOC ---
HPI: Skin/Bite Injury Time Seen by Provider: 11/22/18 10:32 Chief Complaint (Nursing): Abnormal Skin Integrity Chief Complaint (Provider): Rash History Per: Patient Additional Complaint(s): 78 yo female presents to ED with complaints of a generalized itchy, red rash that developed yesterday. Rash on chest, back, bilateral arms, trunk, abd and legs. No resp distress. Pt can not identify any triggering factors. no new lotions, detergents, soaps, foods or medications. Pt has not taken anything to alleviate symptoms thus far. Past Medical History Reviewed: Nursing Documentation, Vital Signs Vital Signs: Last Vital Signs Temp 98.4 F 11/22/18 10:22 Pulse 73 11/22/18 10:22 Resp 17 11/22/18 10:22 BP 146/74 11/22/18 10:22 Pulse Ox 98 11/22/18 10:22 - Medical History PMH: Arthritis, Asthma, Atrial Fibrillation, Cardia Arrhythmia, Dementia, Gastritis, Gall Bladder Disease, HTN Denies: HIV, Chronic Kidney Disease - Surgical History Surgical History: Cholecystectomy - Family History Family History: States: Unknown Family Hx - Living Arrangements Living Arrangements: With Family - Social History Current smoker - smoking cessation education provided: No Alcohol: None Drugs: Denies - Immunization History Hx Tetanus Toxoid Vaccination: No Hx Influenza Vaccination: Yes Hx Pneumococcal Vaccination: No - Home Medications Home Medications: Ambulatory Orders Medication Instructions Recorded Albuterol HFA [Ventolin HFA 90 2 puff IH Q6H PRN 09/21/17 mcg/actuation (8 g)] Carvedilol [Coreg] 12.5 mg PO DAILY 09/21/17 Esomeprazole Magnesium [Nexium] 40 mg PO DAILY 09/21/17 Memantine HCl/Donepezil HCl 1 cap PO HS 09/21/17 [Namzaric 28 mg-10 mg Capsule] Valsartan [Diovan] 160 mg PO DAILY 09/21/17 Cholecalciferol (Vitamin D3) 5,000 unit PO DAILY 09/28/17 [Vitamin D3] Cyanocobalamin (Vitamin B-12) 1,000 mcg PO DAILY 09/28/17 [Liquid B-12] Magnesium Citrate 100 mg PO DAILY 09/28/17 Multivitamin/Iron/Folic Acid 1 tab PO DAILY 09/28/17 [Centrum Complete Multivit Tab] Turmeric Root Extract [Turmeric] 1,160 mg PO BID 09/28/17 Ubidecarenone [Coq-10] 200 mg PO DAILY 09/28/17 Donepezil [Aricept] 10 mg PO HS tab 09/30/17 Memantine [Namenda] 10 mg PO BID tab 09/30/17 Pantoprazole [Protonix EC Tab] 40 mg PO DAILY ect 09/30/17 hydroCHLOROthiazide [Microzide] 12.5 mg PO DAILY #30 cap 09/30/17 DiphenhydrAMINE [Benadryl] 50 mg PO Q4 PRN #30 cap 11/22/18 Methylprednisolone [Medrol Dose 4 mg PO DAILY #21 mg 11/22/18 Pack (21 tabs)] - Allergies Allergies/Adverse Reactions: Allergies Allergy/AdvReac Type Severity Reaction Status Date / Time adhesive tape Allergy RASH Verified 09/28/17 20:20 Review of Systems ROS Statement: Except As Marked, All Systems Reviewed And Found Negative Skin: Positive for: Rash Physical Exam - Reviewed Nursing Documentation Reviewed: Yes Vital Signs Reviewed: Yes - Physical Exam Appears: Positive for: Well, Non-toxic, No Acute Distress Head Exam: Positive for: ATRAUMATIC, NORMAL INSPECTION, NORMOCEPHALIC Skin: Positive for: Normal Color, Warm, Rash ((+) erythematous, blanchable, maculopapular rash diffuse over extremities and torso) Eye Exam: Positive for: EOMI, Normal appearance, PERRL ENT: Positive for: Normal ENT Inspection Neck: Positive for: Normal, Painless ROM Cardiovascular/Chest: Positive for: Regular Rate, Rhythm Respiratory: Positive for: CNT, Normal Breath Sounds Gastrointestinal/Abdominal: Positive for: Normal Exam, Soft Back: Positive for: Normal Inspection Extremity: Positive for: Normal ROM Neurological/Psych: Positive for: Awake, Alert, Normal Tone - ECG O2 Sat by Pulse Oximetry: 98 Medical Decision Making Medical Decision Making: IV Benadryl, Solumedrol and Pepcid administered. On re-eval, Pt feeling well. Rash full resolved. Advised to continue RX at home and return to ED if at anytime condition worsens Disposition - Clinical Impression Clinical Impression: Urticaria - Patient ED Disposition Is Patient to be Admitted: No - Disposition Disposition: Routine/Home Disposition Time: 12:00 Condition: STABLE Prescriptions: DiphenhydrAMINE [Benadryl] 50 mg PO Q4 PRN #30 cap PRN Reason: Rash Methylprednisolone [Medrol Dose Pack (21 tabs)] 4 mg PO DAILY #21 mg Instructions: Feroz (MARY) Forms: [employer] (Egyptian) Print Language: FRISIAN
[2018-11-22 13:43] VITALS: BP 134/76; PULSE 78; RESP 15; O2SAT 100
== END 2018-11-22 13:20 | disposition home or self-care (01) ==
LOC: H.ER 10:14
DX: L50.9 Urticaria, unspecified (principal); F03.90 Unspecified dementia, unspecified severity, without behavioral disturbance, psychotic disturbance, mood disturbance, and anxiety; I10 Essential (primary) hypertension; I48.91 Unspecified atrial fibrillation
CPT/HCPCS: 96374; 96375; 99282; J1200; J2930

== ENCOUNTER 2018-12-01 09:51 | Observation (INO) | payer MEDICARE ==
[2018-12-01 10:01] VITALS: BMI 29.0
--- NOTE | 2018-12-01 10:55 | ED PDOC ---
HPI: Chest Pain Time Seen by Provider: 12/01/18 10:10 Chief Complaint (Nursing): Chest Pain Chief Complaint (Provider): Chest Pain History Per: Patient History/Exam Limitations: clinical condition (limited historian due to dementia) Onset/Duration Of Symptoms: Hrs Quality: Burning (sensation in chest) Additional Complaint(s): 78 year old female with history of HTN, dementia, and arthritis accompanied by daughter presents to ED with chest pain that started last night. Patient is limited historian due to dementia and reports burning sensation in chest and was at rest when chest pain occurred. She also reports arms shaking and called out to daughter although the shaking was not witnessed. Patient is unable to state any other elements of the chest pain and denies any other associated symptoms. Furthermore, patient denies vomiting, leg swelling. Patient's daughter reports patient developed a cough for a week. PMD: Hal Bustillo Past Medical History Reviewed: Historical Data, Nursing Documentation, Vital Signs Vital Signs: Last Vital Signs Temp 98.1 F 12/01/18 10:00 Pulse 78 12/01/18 10:12 Resp 18 12/01/18 10:08 BP 193/77 H 12/01/18 10:00 Pulse Ox 95 12/01/18 10:00 Primary Care Provider: Hal Bustillo - Medical History PMH: Arthritis, Asthma, Atrial Fibrillation, Cardia Arrhythmia, Dementia, Gastritis, Gall Bladder Disease, HTN Denies: HIV, Chronic Kidney Disease - Surgical History Surgical History: Cholecystectomy - Family History Family History: States: No Known Family Hx - Living Arrangements Living Arrangements: With Family (daughter) - Social History Current smoker - smoking cessation education provided: No Alcohol: None Drugs: Denies - Immunization History Hx Tetanus Toxoid Vaccination: No Hx Influenza Vaccination: Yes Hx Pneumococcal Vaccination: No - Home Medications Home Medications: Ambulatory Orders Medication Instructions Recorded Albuterol HFA [Ventolin HFA 90 2 puff IH Q6H PRN 09/21/17 mcg/actuation (8 g)] Carvedilol [Coreg] 3.5 mg PO DAILY 09/21/17 Esomeprazole Magnesium [Nexium] 40 mg PO DAILY 09/21/17 Memantine HCl/Donepezil HCl 1 cap PO HS 09/21/17 [Namzaric 28 mg-10 mg Capsule] Valsartan [Diovan] 160 mg PO DAILY 09/21/17 Cholecalciferol (Vitamin D3) 5,000 unit PO DAILY 09/28/17 [Vitamin D3] Cyanocobalamin (Vitamin B-12) 1,000 mcg PO DAILY 09/28/17 [Liquid B-12] Magnesium Citrate 100 mg PO DAILY 09/28/17 Multivitamin/Iron/Folic Acid 1 tab PO DAILY 09/28/17 [Centrum Complete Multivit Tab] Turmeric Root Extract [Turmeric] 1,160 mg PO BID 09/28/17 Ubidecarenone [Coq-10] 200 mg PO DAILY 09/28/17 Donepezil [Aricept] 10 mg PO HS tab 09/30/17 Memantine [Namenda] 10 mg PO BID tab 09/30/17 Pantoprazole [Protonix EC Tab] 40 mg PO DAILY ect 09/30/17 hydroCHLOROthiazide [Microzide] 12.5 mg PO DAILY #30 cap 09/30/17 DiphenhydrAMINE [Benadryl] 50 mg PO Q4 PRN #30 cap 11/22/18 Methylprednisolone [Medrol Dose 4 mg PO DAILY #21 mg 11/22/18 Pack (21 tabs)] Cholecalciferol 400 Intl Units 125 mcg PO DAILY 12/01/18 [Vitamin D 400 Intl Units Tab] Glucosamine/D3/Boswellia Clari 12/01/18 [Osteo Bi-Flex Tablet] - Allergies Allergies/Adverse Reactions: Allergies Allergy/AdvReac Type Severity Reaction Status Date / Time adhesive tape Allergy RASH Verified 12/01/18 10:08 LUNA Risk Score for UA/NSTEMI - LUNA Risk Score Age > 64: YES 3 or more CAD Risk Factors: YES Known CAD (Stenosis greater than 50%): NO Aspirin use in past 7 days: NO Severe Angina: NO EKG ST changes greater than 0.5mm: NO Positive Cardiac Marker: NO LUNA Score: 2 Risk %: 8% Wells Criteria for PE - Wells Criteria for Pulmonary Embolism Clinical Signs and Symptoms of DVT: No P.E is #1 Diagnosis, or Equally Likely: No Heart Rate >100: No Immobilization at least 3 days;Surgery previous 4 weeks: No Previous, objectively diagnosed PE or DVT: No Hemoptysis: No Malignancy w/treatment within 6 months, or palliative: No Total Score: 0 Review of Systems ROS Statement: Except As Marked, All Systems Reviewed And Found Negative Cardiovascular: Positive for: Chest Pain (burning sensation) Respiratory: Positive for: Cough (x1 week reported by daughter) Gastrointestinal: Negative for: Vomiting Physical Exam - Reviewed Nursing Documentation Reviewed: Yes Vital Signs Reviewed: Yes - Physical Exam Appears: Positive for: No Acute Distress Head Exam: Positive for: ATRAUMATIC, NORMOCEPHALIC Skin: Positive for: Normal Color, Warm, Dry Eye Exam: Positive for: EOMI, Normal appearance, PERRL ENT: Positive for: Normal ENT Inspection Neck: Positive for: Normal, Painless ROM Cardiovascular/Chest: Positive for: Regular Rate, Rhythm. Negative for: Murmur Respiratory: Positive for: Normal Breath Sounds. Negative for: Respiratory Distress Gastrointestinal/Abdominal: Positive for: Normal Exam, Soft. Negative for: Tenderness Back: Positive for: Normal Inspection. Negative for: L CVA Tenderness, R CVA Tenderness, Vertebral Tenderness Extremity: Positive for: Normal ROM. Negative for: Pedal Edema, Deformity Neurological/Psych: Positive for: Awake, Alert. Negative for: Motor/Sensory Deficits - Laboratory Results Result Diagrams: 12/01/18 11:16 12/01/18 11:16 - ECG ECG: Positive for: Interpreted By Me, Viewed By Ut ECG Rhythm: Positive for: Normal QRS, Sinus Rhythm (normal), Nonspecific Changes Rate: 74 O2 Sat by Pulse Oximetry: 95 (RA) Pulse Ox Interpretation: Normal Medical Decision Making Medical Decision Making: Time: 1036 Initial Impression: chest pain DDx includes: ACS, pulmonary embolism Initial Plan: -- EKG -- BMP -- Troponin I -- CBC with Differentials -- D Dimer -- CXR One View -- Flower Arranger Scribe Attestation: Documented by Grzegorz Marrero training under Katelyn Whitfield, acting as a scribe for Gustaov Erazo MD. Provider Scribe Attestation: All medical record entries made by the Scribe were at my direction and personally dictated by me. I have reviewed the chart and agree that the record accurately reflects my personal performance of the history, physical exam, medical decision making, and the department course for this patient. I have also personally directed, reviewed, and agree with the discharge instructions and disposition. Disposition - Clinical Impression Clinical Impression: Chest pain - Patient ED Disposition Is Patient to be Admitted: Yes Discussed With DrJeaneth: Luz Maria Ballard Doctor Will See Patient In The: ED Counseled Patient/Family Regarding: Studies Performed, Diagnosis - Disposition Disposition Time: 12:00 Condition: FAIR - Pt Status Changed To: Hospital Disposition Of: Observation - POA Present On Arrival: None
[2018-12-01 11:36] LABS: BASO % 0.4 % (0.0-2.0); EOS # 0.1 K/uL (0.0-0.7); EOS % 1.7 % (0.0-4.0); HEMOGLOBIN 10.9 g/dL (12.0-16.0); LYMPH # 1.2 K/uL (1.0-4.3); LYMPH % 22.6 % (20.0-40.0); MEAN CELL VOLUME 91.9 fl (81.0-99.0); MEAN CORPUSCULAR HEMOGLOBIN 30.3 pg (27.0-31.0); MEAN PLATELET VOLUME 11.3 fl (7.2-11.7); MONO # 0.5 K/uL (0.0-0.8); MONO % 9.7 % (0.0-10.0); NEUT # 3.6 K/uL (1.8-7.0); NEUT % 65.6 % (50.0-75.0); NRBC % 0.1 % (0.0-0.0); RBC 3.61 Mil/uL (3.80-5.20); RED CELL DISTRIBUTION WIDTH 13.2 % (11.5-14.5); WHITE BLOOD COUNT 5.5 K/uL (4.8-10.8)
[2018-12-01 11:41] LABS: BLOOD UREA NITROGEN 17 mg/dl (7-17); CALCIUM 8.8 mg/dL (8.4-10.2); GFR NON-AFRICAN AMERICAN > 60
--- NOTE | 2018-12-01 14:10 | CP.PCM.HP ---
<Daphne Motta - Last Filed: 12/01/18 15:46> History of Present Illness - History of Present Illness History of Present Illness: 78 yo F with hx HTN, NSTEMI in 2016, acid reflux, dementia, and arthritis, admitted to due chest pain. Pt presented to ED accompanied by her daughter this morning with concern for burning chest pain that started last night. She reports pain does not radiate to either arm nor her jaw. Patient is limited historian due to dementia, and provides limited history; history obtained from combination of patient, daughter at bedside, and chart. She denies any symptoms associated with chest pain. Denies shortness of breath, nausea, vomiting, urinary issues, leg swelling. PMD: Dr. Hal Bustillo Med hx: HTN, dementia, arthritis, NSTEMI in 2016 w/ cardiac cath at [place] showing normal cardiac arteries Past Surg hx: cholecystectomy, bilateral cataract surgery Social hx: lives with daughter in [place]; denies tobacco, alcohol, drug use Fam hx: unknown Allergies: adhesive tape Meds: as per list provided by daughter: esomeprazole 40 mg daily carvedilol 3.5 mg daily (? called pharmacy to clarify, dose is 3.125 mg) namzaric (memantine and donepezil) 28 mg daily hctz 12.5 mg daily supplements: tumeric extract vitamin D 125 mg daily Co-Enzyme Q10 [place] 3 B12 osteo biflex one-a-day women's multivitamin NOK: Adelaida Rene [phone] ED course: elevated BP on arrival: 193/77, HR 73, O2 sat 95, RR 18, T 98.1 EKG NSR w/ nonspecific changes BMP wnl Mg 1.1 troponin neg x1 D-dimer <200 Received: 325 mg aspirin Present on Admission - Present on Admission Any Indicators Present on Admission: No Review of Systems - Review of Systems Review of Systems: as per hpi Past Patient History - Past Medical History & Family History Past Medical History?: Yes - Past Social History Alcohol: None Drugs: Denies Home Situation {Lives}: With Family - CARDIAC Hx Atrial Fibrillation: Yes Hx Cardia Arrhythmia: Yes Hx Hypertension: Yes - PULMONARY Hx Asthma: Yes - NEUROLOGICAL Hx Dementia: Yes - HEENT Hx HEENT Problems: No - RENAL Hx Chronic Kidney Disease: No - ENDOCRINE/METABOLIC Hx Endocrine Disorders: No - HEMATOLOGICAL/ONCOLOGICAL Hx Human Immunodeficiency Virus (HIV): No - INTEGUMENTARY Hx Dermatological Problems: No - MUSCULOSKELETAL/RHEUMATOLOGICAL Hx Arthritis: Yes - GASTROINTESTINAL Hx Gall Bladder Disease: Yes Hx Gastritis: Yes - GENITOURINARY/GYNECOLOGICAL Hx Genitourinary Disorders: No - PSYCHIATRIC Hx Psychophysiologic Disorder: No Hx Substance Use: No - SURGICAL HISTORY Hx Cholecystectomy: Yes - ANESTHESIA Hx Anesthesia: Yes Hx Anesthesia Reactions: No Hx Malignant Hyperthermia: No Meds Allergies/Adverse Reactions: Allergies Allergy/AdvReac Type Severity Reaction Status Date / Time adhesive tape Allergy RASH Verified 12/01/18 10:08 Physical Exam - Constitutional Appears: Non-toxic, No Acute Distress - Head Exam Head Exam: NORMAL INSPECTION - Eye Exam Eye Exam: EOMI, Normal appearance - ENT Exam ENT Exam: Mucous Membranes Moist - Neck Exam Neck exam: Negative for: Lymphadenopathy - Respiratory Exam Respiratory Exam: Clear to Auscultation Bilateral, NORMAL BREATHING PATTERN. absent: Wheezes, Respiratory Distress - Cardiovascular Exam Cardiovascular Exam: REGULAR RHYTHM, +S1, +S2 - GI/Abdominal Exam GI & Abdominal Exam: Normal Bowel Sounds, Soft. absent: Tenderness - Extremities Exam Extremities exam: Negative for: calf tenderness, pedal edema - Back Exam Back exam: NORMAL INSPECTION - Neurological Exam Neurological exam: Alert - Skin Skin Exam: Dry, Normal Color, Warm Results - Vital Signs Recent Vital Signs: Last Vital Signs Temp 97.8 F 12/01/18 13:45 Pulse 63 12/01/18 13:45 Resp 18 12/01/18 13:45 BP 192/82 H 12/01/18 13:45 Pulse Ox 97 12/01/18 13:45 - Labs Result Diagrams: 12/01/18 11:16 12/01/18 11:16 Labs: Laboratory Results - last 24 hr 12/01/18 12/01/18 12/01/18 11:16 11:16 11:16 WBC 5.5 RBC 3.61 L Hgb 10.9 L Hct 33.2 L MCV 91.9 MCH 30.3 MCHC 33.0 RDW 13.2 Plt Count 175 MPV 11.3 Neut % (Auto) 65.6 Lymph % (Auto) 22.6 [place] % (Auto) 9.7 Eos % (Auto) 1.7 Baso % (Auto) 0.4 Neut # (Auto) 3.6 Lymph # (Auto) 1.2 [place] # (Auto) 0.5 Eos # (Auto) 0.1 Baso # (Auto) 0.0 D-Dimer, Quantitative < 200 Sodium 133 Potassium 3.7 Chloride 97 L Carbon Dioxide 28 Anion Gap 12 BUN 17 Creatinine 0.7 Est GFR ( Amer) > 60 Est GFR (Non-Af Amer) > 60 Random Glucose 99 Calcium 8.8 Magnesium Troponin I < 0.0120 12/01/18 13:01 WBC RBC Hgb Hct MCV MCH MCHC RDW Plt Count MPV Neut % (Auto) Lymph % (Auto) [place] % (Auto) Eos % (Auto) Baso % (Auto) Neut # (Auto) Lymph # (Auto) [place] # (Auto) Eos # (Auto) Baso # (Auto) D-Dimer, Quantitative Sodium Potassium Chloride Carbon Dioxide Anion Gap BUN Creatinine Est GFR ( Amer) Est GFR (Non-Af Amer) Random Glucose Calcium Magnesium 1.1 L Troponin I Assessment & Plan - Assessment and Plan (Free Text) Assessment: 78 yo F with hx hypertension, acid reflux, NSTEMI in 2016, dementia, arthritis, admitted due to chest pain to r/o ACS and possible presyncope. Plan: Chest Pain, r/o ACS - EKG NSR; 1st troponin neg - Tele monitoring - Serial troponin x2 Q6hs - Aspirin 81 mg daily Hypomagnesemia - Appears recurrent - Mg Oxide 400 mg PO Q12 hrs - Repeat BMP, Mg in am Pre-Syncope - Echo - Carotid/vertebral doppler u/s Hypertension - Uncontrolled at triage - 5 mg norvasc today; re-eval - Diovan (valsartan) nonformulary; replace with losartan while admitted - Resume coreg Acid Reflux, chronic - Resume PPI Diet - Heart Healthy diet DVT prophylaxis - SCD, lovenox Pt discussed w/ Dr. Ballard. <Luz Maria Ballard - Last Filed: 12/01/18 17:09> Results - Vital Signs Recent Vital Signs: Last Vital Signs Temp 98.3 F 12/01/18 16:11 Pulse 61 12/01/18 16:11 Resp 18 12/01/18 16:11 BP 151/78 H 12/01/18 16:11 Pulse Ox 96 12/01/18 16:11 - Labs Result Diagrams: 12/01/18 11:16 12/01/18 11:16 Labs: Laboratory Results - last 24 hr 12/01/18 12/01/18 12/01/18 11:16 11:16 11:16 WBC 5.5 RBC 3.61 L Hgb 10.9 L Hct 33.2 L MCV 91.9 MCH 30.3 MCHC 33.0 RDW 13.2 Plt Count 175 MPV 11.3 Neut % (Auto) 65.6 Lymph % (Auto) 22.6 [place] % (Auto) 9.7 Eos % (Auto) 1.7 Baso % (Auto) 0.4 Neut # (Auto) 3.6 Lymph # (Auto) 1.2 [place] # (Auto) 0.5 Eos # (Auto) 0.1 Baso # (Auto) 0.0 D-Dimer, Quantitative < 200 Sodium 133 Potassium 3.7 Chloride 97 L Carbon Dioxide 28 Anion Gap 12 BUN 17 Creatinine 0.7 Est GFR ( Amer) > 60 Est GFR (Non-Af Amer) > 60 Random Glucose 99 Calcium 8.8 Magnesium Troponin I < 0.0120 12/01/18 13:01 WBC RBC Hgb Hct MCV MCH MCHC RDW Plt Count MPV Neut % (Auto) Lymph % (Auto) [place] % (Auto) Eos % (Auto) Baso % (Auto) Neut # (Auto) Lymph # (Auto) [place] # (Auto) Eos # (Auto) Baso # (Auto) D-Dimer, Quantitative Sodium Potassium Chloride Carbon Dioxide Anion Gap BUN Creatinine Est GFR ( Amer) Est GFR (Non-Af Amer) Random Glucose Calcium Magnesium 1.1 L Troponin I Attending/Attestation - Attestation I have personally seen and examined this patient.: Yes I have fully participated in the care of the patient.: Yes I have reviewed all pertinent clinical information: Yes Notes (Text): 12/01/18 17:08 agree with findings and plan as above
--- NOTE | 2018-12-01 14:51 | RAD ---
Date of service: 12/01/2018 HISTORY: chest pain COMPARISON: Comparison chest dated 11/07/2017. TECHNIQUE: 1 view obtained. FINDINGS: LUNGS: Poor inspiration low lung volumes common crowded bronchovascular markings and mild bibasilar atelectasis. PLEURA: No significant pleural effusion identified, no pneumothorax apparent. CARDIOVASCULAR: Aortic atherosclerotic calcification present. Cardiomegaly.. No pulmonary vascular congestion. OSSEOUS STRUCTURES: No significant abnormalities. VISUALIZED UPPER ABDOMEN: Normal. OTHER FINDINGS: None. IMPRESSION: Poor inspiration low lung volumes common crowded bronchovascular markings and mild bibasilar atelectasis.
[2018-12-01] MEDS: Magnesium Oxide 400 mg Tab UD PO SCH ×2 (16:34→21:45)
--- NOTE | 2018-12-01 20:05 | CARD ---
APPROVED REPORT Date of service: 12/01/2018 EKG Measurement Heart [id number] <Conclusion> Sinus rhythm with premature atrial complexes Nonspecific ST abnormality Abnormal ECG
[2018-12-02 07:27] LABS: BLOOD UREA NITROGEN 18 mg/dl (7-17); CALCIUM 9.2 mg/dL (8.4-10.2); GFR NON-AFRICAN AMERICAN > 60
[2018-12-02 08:14] VITALS: RESP 18
[2018-12-02] MEDS ORDERED: Enoxaparin 40 mg Syringe SC SCH (09:00)
[2018-12-02] MEDS ORDERED: Pantoprazole 40 mg EC Tab PO SCH (09:00)
[2018-12-02] MEDS: Magnesium Oxide 400 mg Tab UD PO SCH (09:36)
--- NOTE | 2018-12-02 10:29 | CP.PCM.DIS ---
<Mimi Marie - Last Filed: 12/02/18 12:11> Provider - Provider Date of Admission: 12/01/18 12:06 Attending physician: Luz Maria Ballard DO Time Spent in preparation of Discharge (in minutes): 20 Diagnosis - Discharge Diagnosis (1) Chest pain Status: Resolved Hospital Course - Lab Results Lab Results: Most Recent Lab Values WBC 5.5 K/uL (4.8-10.8) 12/01/18 11:16 RBC 3.61 Mil/uL (3.80-5.20) L 12/01/18 11:16 Hgb 10.9 g/dL (12.0-16.0) L 12/01/18 11:16 Hct 33.2 % (34.0-47.0) L 12/01/18 11:16 MCV 91.9 fl (81.0-99.0) 12/01/18 11:16 MCH 30.3 pg (27.0-31.0) 12/01/18 11:16 MCHC 33.0 g/dL (33.0-37.0) 12/01/18 11:16 RDW 13.2 % (11.5-14.5) 12/01/18 11:16 Plt Count 175 K/uL (130-400) 12/01/18 11:16 MPV 11.3 fl (7.2-11.7) 12/01/18 11:16 Neut % (Auto) 65.6 % (50.0-75.0) 12/01/18 11:16 Lymph % (Auto) 22.6 % (20.0-40.0) 12/01/18 11:16 [place] % (Auto) 9.7 % (0.0-10.0) 12/01/18 11:16 Eos % (Auto) 1.7 % (0.0-4.0) 12/01/18 11:16 Baso % (Auto) 0.4 % (0.0-2.0) 12/01/18 11:16 Neut # (Auto) 3.6 K/uL (1.8-7.0) 12/01/18 11:16 Lymph # (Auto) 1.2 K/uL (1.0-4.3) 12/01/18 11:16 [place] # (Auto) 0.5 K/uL (0.0-0.8) 12/01/18 11:16 Eos # (Auto) 0.1 K/uL (0.0-0.7) 12/01/18 11:16 Baso # (Auto) 0.0 K/uL (0.0-0.2) 12/01/18 11:16 D-Dimer, Quantitative < 200 ng/mlDDU (0-230) 12/01/18 11:16 Sodium 134 mmol/l (132-148) 12/02/18 04:30 Potassium 3.2 MMOL/L (3.6-5.0) L 12/02/18 04:30 Chloride 96 mmol/L (98-107) L 12/02/18 04:30 Carbon Dioxide 26 mmol/L (22-30) 12/02/18 04:30 Anion Gap 15 (10-20) 12/02/18 04:30 BUN 18 mg/dl (7-17) H 12/02/18 04:30 Creatinine 0.7 mg/dl (0.7-1.2) 12/02/18 04:30 Est GFR ( Amer) > 60 12/02/18 04:30 Est GFR (Non-Af Amer) > 60 12/02/18 04:30 Random Glucose 87 mg/dL (65-105) 12/02/18 04:30 Calcium 9.2 mg/dL (8.4-10.2) 12/02/18 04:30 Magnesium 1.1 MG/DL (1.6-2.3) L 12/02/18 04:30 Troponin I < 0.0120 ng/mL (0.00-0.120) 12/02/18 00:19 - Hospital Course Hospital Course: 78 yo F with hx hypertension, acid reflux, NSTEMI in 2016, dementia, arthritis, admitted due to chest pain to r/o ACS and possible presyncope. Serial troponin negative. EKG NSR. SYmptoms resolved overnight, pt medically cleared for discharge to home with RX for f/u ECHO and carotid U/S. Follow up with PMD, Dr. Hal Bustillo within 1 week. Discharge Exam - Head Exam Head Exam: NORMAL INSPECTION - Eye Exam Eye Exam: Normal appearance - ENT Exam ENT Exam: Mucous Membranes Moist - Respiratory Exam Respiratory Exam: NORMAL BREATHING PATTERN. absent: Respiratory Distress - GI/Abdominal Exam GI & Abdominal Exam: Soft. absent: Tenderness - Extremities Exam Extremities exam: normal inspection - Neurological Exam Neurological exam: Alert, Normal Gait, Oriented x3 - Psychiatric Exam Psychiatric exam: Normal Affect, Normal Mood - Skin Skin Exam: Normal Color, Warm Discharge Plan - Discharge Medications Prescriptions: Aspirin [Ecotrin] 81 mg PO DAILY #30 tabec - Follow Up Plan Condition: FAIR Disposition: HOME/ ROUTINE Additional Instructions: Follow up PMD, Dr. Hal Bustillo within 1 week Referrals: Hal Bustillo MD [Staff Provider] - <Luz Maria Ballard - Last Filed: 12/03/18 19:53> Provider - Provider Date of Admission: 12/01/18 12:06 Attending physician: Luz Maria Ballard DO [facility] Course - Lab Results Lab Results: Most Recent Lab Values WBC 5.5 K/uL (4.8-10.8) 12/01/18 11:16 RBC 3.61 Mil/uL (3.80-5.20) L 12/01/18 11:16 Hgb 10.9 g/dL (12.0-16.0) L 12/01/18 11:16 Hct 33.2 % (34.0-47.0) L 12/01/18 11:16 MCV 91.9 fl (81.0-99.0) 12/01/18 11:16 MCH 30.3 pg (27.0-31.0) 12/01/18 11:16 MCHC 33.0 g/dL (33.0-37.0) 12/01/18 11:16 RDW 13.2 % (11.5-14.5) 12/01/18 11:16 Plt Count 175 K/uL (130-400) 12/01/18 11:16 MPV 11.3 fl (7.2-11.7) 12/01/18 11:16 Neut % (Auto) 65.6 % (50.0-75.0) 12/01/18 11:16 Lymph % (Auto) 22.6 % (20.0-40.0) 12/01/18 11:16 [place] % (Auto) 9.7 % (0.0-10.0) 12/01/18 11:16 Eos % (Auto) 1.7 % (0.0-4.0) 12/01/18 11:16 Baso % (Auto) 0.4 % (0.0-2.0) 12/01/18 11:16 Neut # (Auto) 3.6 K/uL (1.8-7.0) 12/01/18 11:16 Lymph # (Auto) 1.2 K/uL (1.0-4.3) 12/01/18 11:16 [place] # (Auto) 0.5 K/uL (0.0-0.8) 12/01/18 11:16 Eos # (Auto) 0.1 K/uL (0.0-0.7) 12/01/18 11:16 Baso # (Auto) 0.0 K/uL (0.0-0.2) 12/01/18 11:16 D-Dimer, Quantitative < 200 ng/mlDDU (0-230) 12/01/18 11:16 Sodium 134 mmol/l (132-148) 12/02/18 04:30 Potassium 3.2 MMOL/L (3.6-5.0) L 12/02/18 04:30 Chloride 96 mmol/L (98-107) L 12/02/18 04:30 Carbon Dioxide 26 mmol/L (22-30) 12/02/18 04:30 Anion Gap 15 (10-20) 12/02/18 04:30 BUN 18 mg/dl (7-17) H 12/02/18 04:30 Creatinine 0.7 mg/dl (0.7-1.2) 12/02/18 04:30 Est GFR ( Amer) > 60 12/02/18 04:30 Est GFR (Non-Af Amer) > 60 12/02/18 04:30 Random Glucose 87 mg/dL (65-105) 12/02/18 04:30 Calcium 9.2 mg/dL (8.4-10.2) 12/02/18 04:30 Magnesium 1.1 MG/DL (1.6-2.3) L 12/02/18 04:30 Troponin I < 0.0120 ng/mL (0.00-0.120) 12/02/18 00:19 Attending/Attestation - Attestation I have personally seen and examined this patient.: Yes I have fully participated in the care of the patient.: Yes I have reviewed all pertinent clinical information, including history, physical exam and plan: Yes Notes (Text): 12/03/18 19:53 Agree with findings and plan as above
[2018-12-02 12:22] VITALS: BP 113/55; PULSE 59; TEMP 98.1; O2SAT 98
== END 2018-12-02 13:22 | disposition home or self-care (01) ==
LOC: H.ER 09:51 → H.ERHOLD 12:06 → H.TEL 13:47
PROVIDERS: ADMIT Student in an Organized Health Care Education/Training Program; ATTEND Student in an Organized Health Care Education/Training Program
DX: R07.9 Chest pain, unspecified (principal); I48.91 Unspecified atrial fibrillation; K21.9 Gastro-esophageal reflux disease without esophagitis; K29.70 Gastritis, unspecified, without bleeding; I10 Essential (primary) hypertension; I25.2 Old myocardial infarction; F03.90 Unspecified dementia, unspecified severity, without behavioral disturbance, psychotic disturbance, mood disturbance, and anxiety; J45.909 Unspecified asthma, uncomplicated
CPT/HCPCS: 36415; 71045; 80048; 83735; 84484; 85025; 85378; 93005; 99285; G0378; J1650